=== PATIENT | female | born 1945 | race Caucasian/White ===

== ENCOUNTER 2017-05-18 17:14 | Inpatient (IN) | payer MEDICARE ==
[~2017-05-18] VITALS: Ht 170.2 cm; Wt 140.9 kg
[2017-05-18] VITALS (9 sets, daily range): BP systolic 105–174; BP diastolic 53–79; PULSE 60–81; RESP 16–22; TEMP 97.9–98.6; O2SAT 90–97
[~2017-05-18 17:14] MED LIST: ALLO100T PO; AMIO200T PO; CALC0.25 PO; CARV6.252 PO; DRIS50002 PO; FURO40TA PO; LANTUS2P SQ; LOSA50TA PO; METO5TAB3 PO; NOVOLOGP2 SQ; POTA10TA2 PO; SIMV20TA PO; WARF-58 PO
[2017-05-18] MEDS ORDERED: PIPERACIL-TAZO 4.5 GM PREMIX 100 ML IV STA (17:41)
[2017-05-18] MEDS ORDERED: VANCOMYCIN INJ 2,000 MG in SODIUM CHLORID 0.9% 500 ML INJ 500 ML IV STA (17:41)
[2017-05-18] MEDS ORDERED: ATOR40TA16 PO (17:45)
[2017-05-18] MEDS ORDERED: ERGO1CAP30 PO (17:45)
--- NOTE | 2017-05-18 17:50 | PD ---
HPI Chief Complaint: Skin Problem Time Seen by Provider: 17:41 Travel History International Travel<30 days: No Contact w/Intl Traveler<30days: No Traveled to known affect area: No History of Present Illness HPI This 71-year-old female presents with complaint of pain and swelling of her right leg she has had trouble with cellulitis in the leg in the past. It's been more swollen than usual the last few weeks. She had been to Dr. Parmar at the beginning of the month and at that time she was started on Cipro. She says that since then the leg is becoming more swollen and painful. She has a history of diabetes for about 10 years and has been told that she has kidney insufficiency. She is not aware of fever or chills. She does have a history of heart disease and atrial fibrillation and is on Coumadin. The leg has been swollen and it has been draining some yellow fluid. Today she went to office for follow-up and was told to come here. She has a lot of pain in the leg when she walks on it. She noted increased swelling couple of days ago PFSH Past Medical History Atrial Fibrillation: Yes Anxiety: No Depression: No Heart Rhythm Problems: Yes (ICD IMPLANT) Cancer: No Cardiovascular Problems: Yes High Cholesterol: No Chest Pain: No Congestive Heart Failure: Yes Diabetes: Yes Patient Takes Glucophage: No Diminished Hearing: No Endocrine: No Gastrointestinal Disorders: No Genitourinary: Yes (pessary) Hypertension: Yes Immune Disorder: No Kidney Stones: Yes Musculoskeletal: No Neurologic: No Psychiatric: No Reproductive: No Respiratory: No Immunizations Current: Yes Renal Failure: No Thyroid Disease: No ?: Not Menopausal: Yes Past Surgical History Abdominal Surgery: No AICD: Yes Appendectomy: Yes Arteriovenous Shunt: No Body Medical Devices: defibrillator Cardiac Surgery: Yes (ICD) Ear Surgery: No Endocrine Surgery: No Eye Surgery: No Genitourinary Surgery: Yes (kidney stones) Gynecologic Surgery: No Hysterectomy: Yes (partial ) Insulin Pump: No Joint Replacement: No Oral Surgery: No Pacemaker: Yes Thoracic Surgery: No Social History Alcohol Use: Yes (rare) Tobacco Use: No (former) Substance Use: No Allergies-Medications (Allergen,Severity, Reaction): Coded Allergies: No Known Allergies (Verified , 05/18/17) Reported Meds & Prescriptions Reported Meds & Active Scripts Active Reported Atorvastatin (Atorvastatin Calcium) 40 Mg Tab 40 Mg PO HS Ergocalciferol 50,000 Unit Cap 50,000 Units PO TWICE WEEKLY tuesdays and saturdays Warfarin 3 Mg Tab 3 Mg PO DAILY Potassium Chloride ER (Potassium Chloride) 10 Meq Tab 10 Meq PO DAILY Metolazone 5 Mg Tab 5 Mg PO DAILY Losartan (Losartan Potassium) 50 Mg Tab 50 Mg PO DAILY Lantus Inj (Insulin Glargine) 1,000 Unit/10 Ml Vial 23 Units SQ HS Furosemide 40 Mg Tab 40 Mg PO DAILY Carvedilol 6.25 Mg Tab 6.25 Mg PO BID Calcitriol 0.25 Mcg Cap 0.25 Mcg PO DAILY Amiodarone (Amiodarone HCl) 200 Mg Tab 200 Mg PO DAILY Allopurinol 100 Mg Tab 100 Mg PO DAILY Review of Systems General / Constitutional: No: Fever, Chills Eyes: No: Diploplia, Blurred Vision HENT: No: Headaches, Vertigo Cardiovascular: No: Chest Pain or Discomfort, Palpitations Respiratory: Positive: Shortness of Breath Gastrointestinal: No: Nausea, Vomiting, Diarrhea Genitourinary: Positive: Dysuria Musculoskeletal: Positive: Pain Skin: Positive Rash Neurologic: No: Weakness, Dizziness Hematologic/Lymphatic: Positive: Easy Bruising Physical Exam Narrative GENERAL: Well-developed female SKIN: Focused skin assessment warm/dry. Leg has fairly diffuse erythema from the knee down. There is some areas of open skin with small amount of serous drainage HEAD: Atraumatic. Normocephalic. EYES: Pupils equal and round. No scleral icterus. No injection or drainage. ENT: No nasal bleeding or discharge. Mucous membranes pink and moist. NECK: Trachea midline. No JVD. CARDIOVASCULAR: Regular rate and rhythm. No murmur appreciated. RESPIRATORY: No accessory muscle use. Clear to auscultation. Breath sounds equal bilaterally. GASTROINTESTINAL: Abdomen soft, non-tender, nondistended. Hepatic and splenic margins not palpable. MUSCULOSKELETAL: No obvious deformities. No clubbing. No cyanosis. No edema. There is diffuse swelling of the right leg. NEUROLOGICAL: Awake and alert. No obvious cranial nerve deficits. Motor grossly within normal limits. Normal speech. PSYCHIATRIC: Appropriate mood and affect; insight and judgment normal. Data Data Last Documented VS Vital Signs Date Time Temp Pulse Resp B/P Pulse Ox O2 Delivery O2 Flow Rate FiO2 05/18/17 18:15 16 96 Room Air 7/19/17 18:15 60 114/56 05/18/17 17:20 97.9 Orders Complete Blood Count With Diff (05/18/17 17:41) Comprehensive Metabolic Panel (05/18/17 17:41) Prothrombin Time / Inr (Pt) (05/18/17 17:41) Act Partial Throm Time (Ptt) (05/18/17 17:41) Lactic Acid Sepsis Protocol (05/18/17 17:41) Urinalysis - C+S If Indicated (05/18/17 17:41) Blood Culture (05/18/17 17:41) Wound Culture And Gram Stain (05/18/17 17:41) Blood Glucose (05/18/17 17:41) Ecg Monitoring (05/18/17 17:41) Iv Access Insert/Monitor (05/18/17 17:41) Oximetry (05/18/17 17:41) Piperacil-Tazo 4.5 Gm Premix (Zosyn 4.5 (05/18/17 17:41) Vancomycin Inj (Vancomycin Inj) (05/18/17 17:41) Us Leg Venous Doppler (05/18/17 17:41) Electrocardiogram (05/18/17 17:50) Chest, Single Ap (05/18/17 17:50) B-Type Natriuretic Peptide (05/18/17 18:35) Admit Order (Ed Use Only) (05/18/17 18:44) Labs Laboratory Tests Test 05/18/17 17:55 White Blood Count 11.4 TH/MM3 Red Blood Count 3.57 MIL/MM3 Hemoglobin 10.7 GM/DL Hematocrit 32.2 % Mean Corpuscular Volume 90.1 FL Mean Corpuscular Hemoglobin 30.0 PG Mean Corpuscular Hemoglobin 33.3 % Concent Red Cell Distribution Width 13.5 % Platelet Count 265 TH/MM3 Mean Platelet Volume 8.1 FL Neutrophils (%) (Auto) 77.0 % Lymphocytes (%) (Auto) 12.0 % Monocytes (%) (Auto) 8.7 % Eosinophils (%) (Auto) 1.7 % Basophils (%) (Auto) 0.6 % Neutrophils # (Auto) 8.7 TH/MM3 Lymphocytes # (Auto) 1.4 TH/MM3 Monocytes # (Auto) 1.0 TH/MM3 Eosinophils # (Auto) 0.2 TH/MM3 Basophils # (Auto) 0.1 TH/MM3 CBC Comment DIFF FINAL Differential Comment Prothrombin Time 32.3 SEC Prothromb Time International 2.8 RATIO Ratio Activated Partial 57.3 SEC Thromboplast Time Sodium Level 143 MEQ/L Potassium Level 4.0 MEQ/L Chloride Level 107 MEQ/L Carbon Dioxide Level 28.7 MEQ/L Anion Gap 7 MEQ/L Blood Urea Nitrogen 46 MG/DL Creatinine 2.20 MG/DL Estimat Glomerular Filtration 22 ML/MIN Rate Random Glucose 133 MG/DL Lactic Acid Level 2.1 mmol/L Calcium Level 8.9 MG/DL Total Bilirubin 0.7 MG/DL Aspartate Amino Transf 13 U/L (AST/SGOT) Alanine Aminotransferase 21 U/L (ALT/SGPT) Alkaline Phosphatase 97 U/L B-Type Natriuretic Peptide 155 PG/ML Total Protein 7.1 GM/DL Albumin 2.9 GM/DL [facility] Medical Decision Making Medical Screen Exam Complete: Yes Emergency Medical Condition: Yes Medical Record Reviewed: Yes Differential Diagnosis Differential includes cellulitis, DVT, CHF Narrative Course X-ray shows cardiomegaly and pacer/AICD. There is no change from previous x- ray. EKG shows a regular rhythm with interventricular conduction delay. Hemoglobin is 10 with a white count of 11.4. BUNs is 46 with creatinine of 2.2. Her INR is 2.8. Lactate level is 2.1 patient has a cellulitis of the leg which has failed outpatient treatment with Cipro. She has significant comorbidities of renal insufficiency and diabetes. Ultrasound is negative for DVT Diagnosis Primary Impression: Cellulitis of right leg Admitting Information Admitting Physician Requests: Admit Faisal Sheikh MD May 18, 2017 17:50
[2017-05-18 18:08] LABS: AUTOMATED NEUTROPHIL # 8.7 TH/MM3 (1.8-7.7); BASOPHIL # 0.1 TH/MM3 (0-0.2); BASOPHIL % 0.6 % (0.0-2.0); EOSINOPHIL # 0.2 TH/MM3 (0-0.4); EOSINOPHIL % 1.7 % (0.0-4.0); HEMATOCRIT 32.2 % (35.0-46.0); LYMPHOCYTE # 1.4 TH/MM3 (1.0-4.8); MEAN CELL VOLUME 90.1 FL (80.0-100.0); MEAN CORPUSCULAR HGB CONC 33.3 % (32.0-36.0); MONO % 8.7 % (0.0-8.0); PLATELET COUNT 265 TH/MM3 (150-450); RED BLOOD COUNT 3.57 MIL/MM3 (4.00-5.30); RED CELL DISTRIBUTION WIDTH 13.5 % (11.6-17.2); WHITE BLOOD COUNT 11.4 TH/MM3 (4.0-11.0)
[2017-05-18 18:14] LABS: HEMO FLAGS DIFF FINAL
[2017-05-18 18:16] LABS: CHLORIDE 107 MEQ/L (98-107); SODIUM (NA) 143 MEQ/L (136-145)
[2017-05-18 18:20] LABS: ANION GAP 7 MEQ/L (5-15); BICARBONATE 28.7 MEQ/L (21.0-32.0); BLOOD UREA NITROGEN 46 MG/DL (7-18)
[2017-05-18 18:23] LABS: ALT (GPT) 21 U/L (10-53); APTT (PATIENT) 57.3 SEC (24.3-30.1); AST (GOT) 13 U/L (15-37); GLOMERULAR FILTRATION RATE 22 ML/MIN (>89); INTERNATIONAL NORMALIZED RATIO 2.8 RATIO; PROTHROMBIN TIME - PATIENT 32.3 SEC (9.8-11.6)
[2017-05-18 18:25] LABS: TOTAL BILIRUBIN ADULT 0.7 MG/DL (0.2-1.0)
[2017-05-18 18:26] LABS: ALKALINE PHOSPHATASE 97 U/L (45-117)
--- NOTE | 2017-05-18 18:27 | RADRPT ---
EXAM DATE/TIME: 05/18/2017 18:15 [facility] COMPARISON: CHEST SINGLE AP, May 29, 2015, 8:18. INDICATIONS : Chest discomfort, swelling in lower extremities for 1 week MEDICAL HISTORY : Cardiovascular disease. SURGICAL HISTORY : Pacemaker. ENCOUNTER: Initial ACUITY: 1 week PAIN SCORE: 0/10 LOCATION: Bilateral chest FINDINGS: Cardiomegaly and a pacer/ICD device from a left subclavian transvenous approach again noted. There is no consolidation or effusion. Osseous structures are intact. CONCLUSION: No significant change has occurred. Stuart Serrano MD on May 18, 2017 at 18:25 Board Certified Radiologist. This report was verified electronically.
--- NOTE | 2017-05-18 19:07 | RADRPT ---
EXAM DATE/TIME: 05/18/2017 18:46 [facility] COMPARISON: No previous studies available for comparison. INDICATIONS : Right leg pain and swelling. MEDICAL HISTORY : Hypertension. Congestive heart failure. Hyperlipidemia. A-fib. Endometriosis. Renal calculi. Oste oarthritis. Gout. Diabetes. Measles. SURGICAL HISTORY : Appendectomy. Hysterectomy. Pacemaker. ENCOUNTER: Initial ACUITY: 4 - 6 days PAIN SCORE: 7/10 LOCATION: Right leg. TECHNIQUE: Venous ultrasound of the leg was performed from the inguinal ligament to the proximal calf. Real-tomas e, color Doppler and spectral tracing, compression and augmentation techniques were used. FINDINGS: There is normal compressibility of the deep venous system from the inguinal region to the proximal ca lf. No echogenic clot is seen in the lumen of the common femoral, femoral, popliteal, and posterior tibial veins. There is a normal response of the venous system to proximal and distal augmentation an d respiration. CONCLUSION: No evidence for DVT. Subcutaneous edema of the calf.. Stuart Serrano MD on May 18, 2017 at 19:06 Board Certified Radiologist. This report was verified electronically.
[2017-05-18] MEDS ORDERED: BISACODYL 10 MG SUPP RECTAL PRN (19:30)
[2017-05-18] MEDS ORDERED: ONDANSETRON HCL 4 MG/2 ML VIAL IV PUSH ONE (19:30)
[2017-05-18] MEDS ORDERED: NALOXONE HCL 0.4 MG/ML AMP IV PRN (19:30)
[2017-05-18] MEDS ORDERED: SENNOSIDES 8.6 MG TAB PO PRN (19:30)
[2017-05-18] MEDS ORDERED: MAGNESIUM HYDROXIDE SUSP 30 ML CUP PO PRN (19:30)
[2017-05-18] MEDS ORDERED: Vancomycin Consult Pharmacy 1 EA OTHER SCH (19:30)
[2017-05-18] MEDS ORDERED: GLUCAGON 1 MG/ML VIAL OTHER PRN (19:30)
[2017-05-18] MEDS ORDERED: DEXTROSE 50% IN WATER 50 ML VIAL(D50) IV PRN (19:30)
[2017-05-18] MEDS ORDERED: SODIUM CHLORIDE 0.9% FLUSH 10 ML FLUSH IV FLUSH PRN (19:30)
[2017-05-18] MEDS ORDERED: LACTULOSE SYRUP 20 GM/30 ML CUP PO PRN (19:30)
[2017-05-18 19:38] LABS: GLUCOSE,URINE NEG (NEG); KETONE, URINE NEG (NEG); NITRITE,URINE NEG (NEG); PH, URINE 5.5 (5.0-8.5)
[2017-05-18 19:40] LABS: BLOOD, URINE MOD (NEG); URINE COLOR YELLOW (YELLW/STRAW)
[2017-05-18 19:41] LABS: BACTERIA, URINE MANY /hpf; COMMENT (UR) CULTURE INDICATED; CULTURE IF INDICATED CULTURE INDICATED
[2017-05-18 20:05] LABS: LACTIC ACID GHOST NOT REPORTABLE
[2017-05-18] MEDS: INSULIN ASPART SUPPLEMENTAL SCALE SQ SCH (21:00)
[2017-05-18] MEDS: SODIUM CHLORIDE 0.9% FLUSH 10 ML FLUSH IV FLUSH SCH (21:34)
[2017-05-18] MEDS: DOCUSATE SODIUM 50 MG/SENNA 8.6 MG TAB PO SCH (21:34)
[2017-05-18] MEDS: ONDANSETRON HCL 4 MG/2 ML VIAL IVP PRN (21:35)
[2017-05-18] MEDS: TEMAZEPAM 15 MG CAP PO PRN (21:38)
[2017-05-18] MEDS ORDERED: diphenhydrAMINE HCL 50 MG/ML VIAL IV PRN (21:45)
[2017-05-18] MEDS: CLINDAMYCIN 300 MG/NS 100 ML IV SCH ×2 (21:54)
[2017-05-19] VITALS (9 sets, daily range): BP systolic 95–146; BP diastolic 58–75; PULSE 59–81; RESP 18–22; TEMP 96.2–100; O2SAT 87–99
[2017-05-19] MEDS: CLINDAMYCIN 300 MG/NS 100 ML IV SCH ×6 (03:42→16:56)
[2017-05-19] MEDS: INSULIN ASPART SUPPLEMENTAL SCALE SQ SCH ×4 (06:19→21:00)
[2017-05-19 06:37] LABS: AUTOMATED NEUTROPHIL # 8.1 TH/MM3 (1.8-7.7); BASOPHIL % 0.2 % (0.0-2.0); EOSINOPHIL % 0.4 % (0.0-4.0); HEMO FLAGS DIFF FINAL; LYMPH % 7.4 % (9.0-44.0); LYMPHOCYTE # 0.7 TH/MM3 (1.0-4.8); MEAN CELL VOLUME 91.1 FL (80.0-100.0); MEAN CORPUSCULAR HEMOGLOBIN 29.6 PG (27.0-34.0); MEAN CORPUSCULAR HGB CONC 32.5 % (32.0-36.0); MONO % 8.9 % (0.0-8.0); NEUT % 83.1 % (16.0-70.0); PLATELET COUNT 224 TH/MM3 (150-450); RED BLOOD COUNT 3.41 MIL/MM3 (4.00-5.30); RED CELL DISTRIBUTION WIDTH 13.7 % (11.6-17.2); WHITE BLOOD COUNT 9.7 TH/MM3 (4.0-11.0)
[2017-05-19 06:39] LABS: POTASSIUM 4.5 MEQ/L (3.5-5.1)
[2017-05-19 06:42] LABS: BICARBONATE 29.1 MEQ/L (21.0-32.0)
[2017-05-19] MEDS: DOCUSATE SODIUM 50 MG/SENNA 8.6 MG TAB PO SCH ×2 (09:00→21:05)
[2017-05-19] MEDS ORDERED: FUROSEMIDE 40 MG TAB PO SCH (09:00)
--- NOTE | 2017-05-19 09:22 | MH ---
cc: KAUSHAL PRYOR MD DATE OF ADMISSION: 05/18/2017 CHIEF COMPLAINT Redness, swelling and pain of the right lower extremity. HISTORY OF PRESENT ILLNESS This is a 71-year female with a past medical/surgical history significant for atrial fibrillation, AICD placement, history of congestive heart failure, renal insufficiency, history of pessary replacement for uterine prolapse, hypertension, kidney stones, partial hysterectomy, pacemaker/AICD placement, appendectomy. The patient came to the ER at [facility] complaining of pain and swelling of the right lower extremity. She had cellulitis of the right lower extremity in the past and this started about a week ago. She had seen Dr. Parmar at the beginning of the month and at that time she was started on Cipro and she said that the leg became more swollen and painful. She has a history of diabetes for about to 10 years and has been told that she acute renal insufficiency. She is not aware of fever or chills. She does have a history of heart disease and atrial fibrillation and is on Coumadin. The leg has been swollen and it has been draining some yellow fluid. She went to Dr. Parmar's office for followup and was sent to the ER. The swelling has been increased for a couple of days. Other than that, nothing significant. PAST MEDICAL-SURGICAL HISTORY As dictated above. SOCIAL HISTORY She is ex-smoker, smoked only 3 years in lifetime, 1/2-pack per day and she rarely drinks. Denies any drug abuse. Lives at home with . 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 FAMILY HISTORY Nothing significant. ALLERGIES No known drug allergies. MEDICATIONS 1. Atorvastatin 40 mg p.o. at bedtime. 2. Ergocalciferol 50,000 units p.o. weekly. 3. Coumadin 3 mg p.o. daily. 4. Potassium chloride ER 10 mEq p.o. daily. 5. Metolazone 5 mg p.o. daily. 6. Losartan 50 mg p.o. daily. 7. Lantus injection 23 units subcutaneous at bedtime. 8. Furosemide 40 mg p.o. daily. 9. Carvedilol 6.25 mg twice a day. 10. Calcitriol 0.25 mg p.o. daily. 11. Amiodarone 200 mg p.o. daily. 12. Allopurinol 100 mg p.o. daily. REVIEW OF SYSTEMS Positive for right leg swelling and pain and redness and obese. All other review of systems negative. PHYSICAL EXAMINATION GENERAL: This 71-year-old female laying on her bed, not in distress. VITAL SIGNS: Temperature 99.7, heart rate 59, respirations 18, blood pressure 117/72, O2 saturation 99% on room air. HEENT: Normocephalic, atraumatic. EOMI. PERRLA. Oral mucosa moist. NECK: Supple. No visible thyromegaly or neck mass. Trachea is central. Generally obese. Neck is supple. No visible thyromegaly or neck mass. Trachea is central. CVS: Regular rate and rhythm. LUNGS: Respirations clear to auscultation bilaterally. ABDOMEN: Soft, obese, nontender. Bowel sounds audible. EXTREMITIES: There is right lower extremity redness, swelling and tenderness with serous fluid drainage. Full range of motion of all extremities. NEURO: Awake, alert, oriented x 4. No focal deficits. SKIN: The skin shows erythema of the right lower extremity with oozing serous fluid. PSYCH: The patient is cooperative. Mood and affect are normal. LABORATORY DATA CBC shows WBC count of 11.4, now it is 9.7. Hemoglobin was 10.7, now it is 10.1, hematocrit was 32.2, now it is 31.0. BMP totally unremarkable except for chloride of 108 - high. BUN 48 - high, creatinine 2.40, glucose random 106, calcium 8.2, lactic acid 2.1 - now it is 1.5, BNP 155 - high, albumin 2.9. PT 32.3, INR 2.8, APTT 57.3. Urine examination showed 50-90 WBCs in the urine with WBC clumps, 4-9 RBCs, moderate occult blood and many bacteria. Culture indicated. Blood cultures x 2 done, negative so far. Wound culture done, pending. Urine culture done is spending. IMAGING STUDIES Ultrasound of the lower extremity done shows no evidence of DVT. Subcutaneous edema of the calf. Chest x-ray Was done, showed no significant changes have occurred. ASSESSMENT AND PLAN This is a 71-year-old female who came to the ER with diagnosis - 1. Cellulitis of the right lower extremity. Venous Doppler negative for DVT. The patient got vancomycin and Zosyn. Infectious Disease consulted. Further recommendation of antibiotic per Infectious Disease. 2. Chronic renal failure. We will monitor BUN and creatinine. 3. History of atrial fibrillation. The patient on Coumadin. INR 2.8. We will monitor PT/INR daily. The patient also on amiodarone 200 mg p.o. daily, carvedilol 6.25 mg p.o. daily 4. Cellulitis of the right lower extremity. The patient is on clindamycin IV q.6 hours. 5. History of gout. Continue home medication. 6. Diabetes mellitus. ADA 1800 calorie diet. NovoLog low-dose sliding scale. Continue Lantus. Monitor blood sugars a.c and q.h.s. 7. Vitamin D deficiency. Continue home medication. 8. History of congestive heart failure. The patient's BNP is high but the patient clinically does not have congestive heart failure. No crackles, no shortness of breath. 9. DVT prophylaxis. Coumadin. 10. GI prophylaxis. Protonix 40 mg p.o. daily. 11. History of insomnia. Continue with Restoril 15 mg p.o. at bedtime. 12. History of constipation. Continue home medication. We are going to manage the patient on a daily basis and make recommendation on a daily basis. Nurse Tara was present the whole time during patient history and physical examination. Kaushal Pryor MD EA/KANG /8:27 AM /8:46 AM
[2017-05-19] MEDS: CARVEDILOL 6.25 MG TAB PO SCH ×2 (09:40→21:05)
[2017-05-19] MEDS: ALLOPURINOL 100 MG TAB PO SCH (09:40)
[2017-05-19] MEDS: METOLAZONE 5 MG TAB PO SCH (09:40)
[2017-05-19] MEDS: POTASSIUM CHLORIDE 10 MEQ CONTROLLED RELEASE TAB PO SCH (09:40)
[2017-05-19] MEDS: AMIODARONE 200 MG TAB PO SCH (09:40)
[2017-05-19] MEDS: PANTOPRAZOLE SOD 40 MG DELAYED RELEASE TAB PO SCH (09:40)
[2017-05-19] MEDS: CALCITRIOL 0.25 MCG CAP PO SCH (09:40)
[2017-05-19] MEDS: SODIUM CHLORIDE 0.9% FLUSH 10 ML FLUSH IV FLUSH SCH ×2 (09:41→21:05)
[2017-05-19 10:29] LABS: INTERNATIONAL NORMALIZED RATIO 3.1 RATIO; PROTHROMBIN TIME - PATIENT 35.5 SEC (9.8-11.6)
--- NOTE | 2017-05-19 14:57 | EKG ---
Date Performed: 05/18/2017 Time Performed: 18:02:26 PTAGE: 71 years EKG: AV Pacing Baseline artifact INTRAVENTRICULAR CONDUCTION DELAY PROBABLE ANTEROLATERAL MYOCAR DIAL INFARCTION Compared to previous tracing, the patient now appears to be AV paced ABNORMAL ECGPREV IOUS TRACING : 06/07/2016 11.09 DOCTOR: Siria Kennedy Interpretating Date/Time 05/19/2017 14:54:03
[2017-05-19] MEDS ORDERED: WARFARIN SOD 3 MG TAB PO SCH (16:00)
[2017-05-19] MEDS: ACETAMINOPHEN/HYDROcodone 325 MG/5 MG TAB PO PRN (16:57)
--- NOTE | 2017-05-19 18:10 | PD.CONS ---
History of Present Illness Service Infectious disease Consult Requested By Dr Kaushal Burks Reason for Consult Rt leg cellulitis Primary Care Physician Non-Staff Diagnoses: (1) Cellulitis of right leg (2) LZÁARO (acute kidney injury) (3) DM (diabetes mellitus) (4) UTI (urinary tract infection) History of Present Illness 71 year old with multiple medical problems including diabetes and cellulitis twice before had worsening swelling and redness of rt leg and so she did see her PCP- Lisy CARLTON at Dr Esparza's office and she was given Cipro but her leg did not get better and so she came to ER. C/o throbbing pain in rt leg. She has had a low grade fever. Also she does c/o some dysuria. Review of Systems Constitutional: COMPLAINS OF: Fatigue, Fever Endocrine: DENIES: Polydipsia, Polyuria Eyes: DENIES: Diplopia, Eye pain Ears, nose, mouth, throat: DENIES: Hearing loss, Oral lesions Respiratory: DENIES: Wheezing, Shortness of breath Cardiovascular: COMPLAINS OF: Lower Extremity Edema, DENIES: Syncope, Dyspnea on Exertion, Orthopnea Gastrointestinal: DENIES: Bloody stools, Vomiting, Difficulty Swallowing Genitourinary: COMPLAINS OF: Dysuria, DENIES: Hematuria Musculoskeletal: COMPLAINS OF: Muscle aches Integumentary: COMPLAINS OF: Abnormal pigmentation, DENIES: Pruritus Hematologic/lymphatic: COMPLAINS OF: Bruising Neurologic: COMPLAINS OF: Paresthesias, DENIES: Headache Psychiatric: DENIES: Anxiety, Depression Past Family Social History Allergies: Coded Allergies: Vancomycin (Verified Allergy, Severe, ANAPHYLAXIS, 05/18/17) Past Medical History Type 2 Diabetes HTN Renal insufficiency CHF A fib Cellulitis x 2 Past Surgical History Pacemaker/ AICD placement Partial hysterectomy Reported Medications Clindamycin IV Family History Non contributory Social History Lives at home with Former smoker Has a dog at home No recent travel Physical Exam Vital Signs Vital Signs Date Time Temp Pulse Resp B/P Pulse Ox O2 Delivery O2 Flow Rate FiO2 05/19/17 16:00 100.0 70 18 127/75 90 05/19/17 11:54 98.3 81 18 146/74 91 05/19/17 09:39 61 05/19/17 08:00 93 21 05/19/17 08:00 99.7 59 18 117/72 99 05/19/17 07:50 96 Nasal Cannula 2.00 05/19/17 04:00 97.9 59 18 127/71 98 05/19/17 00:00 100.0 64 20 95/58 96 05/18/17 22:00 64 05/18/17 21:20 98.3 66 18 105/60 91 05/18/17 20:45 72 20 108/53 97 Nasal Cannula 1.5 05/18/17 20:15 70 22 140/65 94 Nasal Cannula 1.5 05/18/17 19:45 68 22 158/72 96 Nasal Cannula 1.5 05/18/17 19:30 98.6 81 22 174/79 95 Nasal Cannula 1 05/18/17 19:30 98.6 81 22 174/79 95 Nasal Cannula 1 05/18/17 19:00 60 20 109/60 90 Room Air 05/18/17 18:15 16 96 Room Air 05/18/17 18:15 60 16 114/56 96 Room Air Physical Exam GENERAL: This is a chronically ill obese patient SKIN: Rt leg erythematous with some superficial oozing ulcers and a bruise in medial upper calf that is slightly fluctuant HEAD: Atraumatic. Normocephalic. No temporal or scalp tenderness. EYES: Pupils equal round and reactive. Extraocular motions intact. No scleral icterus. No injection or drainage. ENT: Nose without bleeding, purulent drainage or septal hematoma. Throat without erythema, tonsillar hypertrophy or exudate. Uvula midline. Airway patent. NECK: Trachea midline. No JVD or lymphadenopathy. Supple, nontender, no meningeal signs. CARDIOVASCULAR: Regular rate and rhythm without murmurs, gallops, or rubs. RESPIRATORY: Clear to auscultation. Breath sounds equal bilaterally. No wheezes , rales, or rhonchi. GASTROINTESTINAL: Abdomen soft, non-tender, nondistended. No hepato-splenomegaly , or palpable masses. No guarding. MUSCULOSKELETAL: Extremities - RLE with cellulitis Negative Homans sign bilaterally. NEUROLOGICAL: Awake and alert. Cranial nerves II through XII intact. Motor within normal limits. Five out of 5 muscle strength in all muscle groups. Normal speech. Laboratory Laboratory Tests Test 05/18/17 05/18/17 05/19/17 05/19/17 19:20 20:23 05:35 10:00 Urine Color YELLOW Urine Turbidity CLOUDY Urine pH 5.5 Urine Specific [place] 1.025 Urine Protein TRACE Urine Glucose (UA) NEG Urine Ketones NEG Urine Occult Blood MOD Urine Nitrite NEG Urine Bilirubin NEG Urine Leukocyte Esterase MOD Urine RBC 4-9 Urine WBC 50-99 Urine WBC [place] FEW Urine Squamous Epithelial 6-8 Cells Urine Bacteria MANY Microscopic Urinalysis Comment CULTURE INDICATED Lactic Acid Level 1.5 White Blood Count 9.7 Red Blood Count 3.41 Hemoglobin 10.1 Hematocrit 31.0 Mean Corpuscular Volume 91.1 Mean Corpuscular Hemoglobin 29.6 Mean Corpuscular Hemoglobin 32.5 Concent Red Cell Distribution Width 13.7 Platelet Count 224 Mean Platelet Volume 9.1 Neutrophils (%) (Auto) 83.1 Lymphocytes (%) (Auto) 7.4 Monocytes (%) (Auto) 8.9 Eosinophils (%) (Auto) 0.4 Basophils (%) (Auto) 0.2 Neutrophils # (Auto) 8.1 Lymphocytes # (Auto) 0.7 Monocytes # (Auto) 0.9 Eosinophils # (Auto) 0.0 Basophils # (Auto) 0.0 CBC Comment DIFF FINAL Differential Comment Sodium Level 144 Potassium Level 4.5 Chloride Level 108 Carbon Dioxide Level 29.1 Anion Gap 7 Blood Urea Nitrogen 48 Creatinine 2.40 Estimat Glomerular Filtration 20 Rate Random Glucose 106 Calcium Level 8.2 Prothrombin Time 35.5 Prothromb Time International 3.1 Ratio Date/Time Procedure Status Source Growth 05/18/17 19:20 Urine Culture - Preliminary Resulted Urine Clean Catch Gram Negative Jared 05/18/17 18:05 Aerobic Blood Culture - Preliminary Resulted Blood Peripheral NO GROWTH IN 1 DAY 05/18/17 18:05 Anaerobic Blood Culture - Preliminary Resulted Blood Peripheral NO GROWTH IN 1 DAY 05/18/17 17:55 Gram Stain - Final Resulted Wound Leg 05/18/17 17:55 Wound Culture - Preliminary Resulted Gram Positive Cocci Result Diagram: 05/19/17 0535 05/19/17 0535 Assessment and Plan Problem List: (1) Cellulitis of right leg Status: Acute Plan: 1 of 4 bottle with GPC - follow cultures closely Stop IV Clindamycin Start Cefazolin 1 gIV q8hrs Add Doxy 100 mg po bid (2) UTI (urinary tract infection) Status: Acute Plan: Follow cultures IV Cefazolin (3) LÁZARO (acute kidney injury) Status: Acute (4) DM (diabetes mellitus) Status: Acute Problem Qualifiers (1) DM (diabetes mellitus): Janine Shelton MD May 19, 2017 18:10
[2017-05-19] MEDS ORDERED: ACETAMINOPHEN 325 MG TAB PO PRN (19:00)
[2017-05-19] MEDS ORDERED: VANCOMYCIN INJ 1,000 MG in SODIUM CHLOR 0.9% 250 ML INJ 250 ML IV SCH (19:30)
[2017-05-19] MEDS: DOXYCYCLINE HYCLATE 100 MG CAP PO SCH (21:05)
[2017-05-19] MEDS: ATORVASTATIN 40 MG TAB PO SCH (21:05)
[2017-05-19] MEDS: INSULIN DETEMIR 100 UNITS/ML VIAL SQ SCH (21:06)
[2017-05-20] VITALS (10 sets, daily range): BP systolic 109–128; BP diastolic 62–70; PULSE 59–72; RESP 14–18; TEMP 96.8–97.7; O2SAT 87–100
[2017-05-20] MEDS: ACETAMINOPHEN/HYDROcodone 325 MG/5 MG TAB PO PRN ×4 (03:03→23:32)
[2017-05-20 06:33] LABS: AUTOMATED NEUTROPHIL # 5.8 TH/MM3 (1.8-7.7); BASOPHIL % 0.5 % (0.0-2.0); EOSINOPHIL # 0.3 TH/MM3 (0-0.4); EOSINOPHIL % 3.2 % (0.0-4.0); HEMATOCRIT 31.3 % (35.0-46.0); HEMO FLAGS DIFF FINAL; LYMPH % 15.3 % (9.0-44.0); LYMPHOCYTE # 1.4 TH/MM3 (1.0-4.8); MEAN CELL VOLUME 91.8 FL (80.0-100.0); MEAN CORPUSCULAR HEMOGLOBIN 29.1 PG (27.0-34.0); MEAN CORPUSCULAR HGB CONC 31.7 % (32.0-36.0); MONO % 15.4 % (0.0-8.0); NEUT % 65.6 % (16.0-70.0); PLATELET COUNT 225 TH/MM3 (150-450); RED BLOOD COUNT 3.41 MIL/MM3 (4.00-5.30); RED CELL DISTRIBUTION WIDTH 13.4 % (11.6-17.2); WHITE BLOOD COUNT 8.9 TH/MM3 (4.0-11.0)
[2017-05-20 06:42] LABS: CHLORIDE 107 MEQ/L (98-107); SODIUM (NA) 142 MEQ/L (136-145)
[2017-05-20] MEDS: INSULIN ASPART SUPPLEMENTAL SCALE SQ SCH ×4 (06:45→21:00)
[2017-05-20 06:46] LABS: ANION GAP 7 MEQ/L (5-15); BICARBONATE 27.9 MEQ/L (21.0-32.0); BLOOD UREA NITROGEN 51 MG/DL (7-18); INTERNATIONAL NORMALIZED RATIO 2.8 RATIO; PROTHROMBIN TIME - PATIENT 32.2 SEC (9.8-11.6)
[2017-05-20 06:49] LABS: ALT (GPT) 20 U/L (10-53); AST (GOT) 14 U/L (15-37); GLOMERULAR FILTRATION RATE 19 ML/MIN (>89)
[2017-05-20 06:50] LABS: TOTAL BILIRUBIN ADULT 0.4 MG/DL (0.2-1.0)
[2017-05-20 06:52] LABS: ALKALINE PHOSPHATASE 90 U/L (45-117)
--- NOTE | 2017-05-20 08:09 | HHI.PR ---
Subjective History of Present Illness Patient have low oxygen saturation at night started on nasal canula oxygen Lasix changed to IV D/W CINDY Shaffer at bed side no other issue. Infectious disease input noted stopped clindamycin and Start Cefazolin 1 gIV q8hrs + Doxy 100 mg po bid Review of Systems Constitutional Constitutional: Fatigue, Weakness Constitutional Remarks Obesity Integumentary Skin: Wounds Skin Remarks right lower leg swelling/ pain/ wound Vitals/Results Intake & Output 05/19/17 05/19/17 05/20/17 15:00 23:00 07:00 Intake Total 660 ml 110 ml 480 ml Balance 660 ml 110 ml 480 ml Intake Oral 660 ml 480 ml IV Total 110 ml # Voids 3 Vital Signs Vital Signs Date Time Temp Pulse Resp B/P Pulse Ox O2 Delivery O2 Flow Rate FiO2 05/20/17 08:00 97.6 68 18 119/68 100 05/20/17 04:00 97.7 60 18 120/64 98 05/20/17 00:00 97.0 60 18 121/70 98 05/19/17 20:25 97 Nasal Cannula 2.00 05/19/17 20:00 60 05/19/17 20:00 96.2 60 22 124/69 87 05/19/17 16:00 100.0 70 18 127/75 90 05/19/17 11:54 98.3 81 18 146/74 91 05/19/17 09:39 61 CBC/BMP: 05/20/17 0600 05/20/17 0600 Lab Results Laboratory Tests Test 05/19/17 05/20/17 10:00 06:00 Prothrombin Time 35.5 SEC 32.2 SEC Prothromb Time International 3.1 RATIO 2.8 RATIO Ratio White Blood Count 8.9 TH/MM3 Red Blood Count 3.41 MIL/MM3 Hemoglobin 9.9 GM/DL Hematocrit 31.3 % Mean Corpuscular Volume 91.8 FL Mean Corpuscular Hemoglobin 29.1 PG Mean Corpuscular Hemoglobin 31.7 % Concent Red Cell Distribution Width 13.4 % Platelet Count 225 TH/MM3 Mean Platelet Volume 8.6 FL Neutrophils (%) (Auto) 65.6 % Lymphocytes (%) (Auto) 15.3 % Monocytes (%) (Auto) 15.4 % Eosinophils (%) (Auto) 3.2 % Basophils (%) (Auto) 0.5 % Neutrophils # (Auto) 5.8 TH/MM3 Lymphocytes # (Auto) 1.4 TH/MM3 Monocytes # (Auto) 1.4 TH/MM3 Eosinophils # (Auto) 0.3 TH/MM3 Basophils # (Auto) 0.0 TH/MM3 CBC Comment DIFF FINAL Differential Comment Sodium Level 142 MEQ/L Potassium Level 4.0 MEQ/L Chloride Level 107 MEQ/L Carbon Dioxide Level 27.9 MEQ/L Anion Gap 7 MEQ/L Blood Urea Nitrogen 51 MG/DL Creatinine 2.50 MG/DL Estimat Glomerular Filtration 19 ML/MIN Rate Random Glucose 99 MG/DL Calcium Level 8.5 MG/DL Total Bilirubin 0.4 MG/DL Aspartate Amino Transf 14 U/L (AST/SGOT) Alanine Aminotransferase 20 U/L (ALT/SGPT) Alkaline Phosphatase 90 U/L Total Protein 6.4 GM/DL Albumin 2.5 GM/DL Physical Exam General General Appearance: Well Developed, Well Nourished, No Acute Distress, Comfortable Eyes Eye Exam: Sclera White, Extraocular Movement Intact Throat Throat Exam: Oral Mucosa [place] & Moist, Oral Pharynx Normal Neck Neck Exam: Neck Supple, Trachea Midline Pulmonary Resp Exam: Clear Bilaterally, Breath Sounds Equal, No Distress Cardiology CV Exam: Regular, Normal Sinus Rhythm Gastrointestinal/Abdomen GI Exam: Soft, Non-Tender, Bowel Sounds Present Integumentary Skin Exam: Clear, Warm Skin Remarks wound / erythema/ swelling right lower extremity Extremeties Extremities Exam: Pitting Edema Neurologic Neuro Exam: Alert, Awake, Oriented, Speech Clear, Moving All Extremities, No Focal Deficits Psychiatric Psych Exam: Appropriate Responses PUD Prophylasis PUD Prophylaxis: Protonix Assessment/Plan Assessment/Plan ASSESSMENT AND PLAN This is a 71-year-old female who came to the ER with diagnosis - 1. Cellulitis of the right lower extremity. Venous Doppler negative for DVT. Infectious disease input noted stopped clindamycin and Start Cefazolin 1 gIV q8hrs + Doxy 100 mg po BID. Further recommendation of antibiotic per Infectious Disease. 2. Chronic renal failure. We will monitor BUN and creatinine. 3. History of atrial fibrillation. rate controlled The patient on Coumadin. INR 2.8. We will monitor PT/INR daily. The patient also on amiodarone 200 mg p.o. daily, carvedilol 6.25 mg p.o. daily 4. Cellulitis of the right lower extremity. The patient is on Cefazolin 1 gIV q8hrs + Doxy 100 mg po BID. 5. History of gout. Continue home medication. 6. Diabetes mellitus. ADA 1800 calorie diet. NovoLog low-dose sliding scale. Continue Lantus. Monitor blood sugars a.c and q.h.s. 7. Vitamin D deficiency. Continue home medication. 8. History of congestive heart failure. The patient's BNP is high but the patient clinically does not have congestive heart failure. No crackles, no shortness of breath. on IV Lasix, 9. DVT prophylaxis. Coumadin. 10. GI prophylaxis. Protonix 40 mg p.o. daily. 11. History of insomnia. Continue with Restoril 15 mg p.o. at bedtime. 12. History of constipation. Continue home medication. 13. Desaturation at night need to see user experience manager as out patient need sleep study. We are going to manage the patient on a daily basis and make recommendation on a daily basis. Check CBC with diff CMP in AM. Discussed Condition with: Patient Kaushal Burks MD May 20, 2017 08:09
[2017-05-20] MEDS: POTASSIUM CHLORIDE 10 MEQ CONTROLLED RELEASE TAB PO SCH (08:28)
[2017-05-20] MEDS: METOLAZONE 5 MG TAB PO SCH (08:28)
[2017-05-20] MEDS: FUROSEMIDE 40 MG/4 ML VIAL IV PUSH SCH (08:28)
[2017-05-20] MEDS: CARVEDILOL 6.25 MG TAB PO SCH ×2 (08:28→21:12)
[2017-05-20] MEDS: CALCITRIOL 0.25 MCG CAP PO SCH (08:28)
[2017-05-20] MEDS: ALLOPURINOL 100 MG TAB PO SCH (08:28)
[2017-05-20] MEDS: DOCUSATE SODIUM 50 MG/SENNA 8.6 MG TAB PO SCH ×2 (08:29→21:12)
[2017-05-20] MEDS: DOXYCYCLINE HYCLATE 100 MG CAP PO SCH ×2 (08:29→21:12)
[2017-05-20] MEDS: PANTOPRAZOLE SOD 40 MG DELAYED RELEASE TAB PO SCH (08:29)
[2017-05-20] MEDS: AMIODARONE 200 MG TAB PO SCH (08:29)
[2017-05-20] MEDS: SODIUM CHLORIDE 0.9% FLUSH 10 ML FLUSH IV FLUSH SCH ×2 (08:29→21:13)
[2017-05-20] MEDS: WARFARIN SOD 2.5 MG TAB PO SCH (16:27)
[2017-05-20] MEDS: ATORVASTATIN 40 MG TAB PO SCH (21:12)
[2017-05-20] MEDS: ceFAZolin 500 MG/NS 100 ML IV SCH ×2 (21:13)
[2017-05-20] MEDS: INSULIN DETEMIR 100 UNITS/ML VIAL SQ SCH (21:17)
[2017-05-20] MEDS: TEMAZEPAM 15 MG CAP PO PRN (23:31)
[2017-05-21] VITALS (9 sets, daily range): BP systolic 103–142; BP diastolic 57–81; PULSE 59–77; RESP 16–21; TEMP 96.2–97.8; O2SAT 94–100
[2017-05-21] MEDS: INSULIN ASPART SUPPLEMENTAL SCALE SQ SCH ×4 (06:00→21:00)
[2017-05-21 07:05] LABS: AUTOMATED NEUTROPHIL # 7.1 TH/MM3 (1.8-7.7); BASOPHIL % 0.2 % (0.0-2.0); EOSINOPHIL # 0.4 TH/MM3 (0-0.4); EOSINOPHIL % 4.6 % (0.0-4.0); HEMATOCRIT 32.2 % (35.0-46.0); HEMO FLAGS DIFF FINAL; LYMPH % 8.9 % (9.0-44.0); LYMPHOCYTE # 0.9 TH/MM3 (1.0-4.8); MEAN CELL VOLUME 91.7 FL (80.0-100.0); MEAN CORPUSCULAR HEMOGLOBIN 29.5 PG (27.0-34.0); MEAN CORPUSCULAR HGB CONC 32.2 % (32.0-36.0); NEUT % 74.3 % (16.0-70.0); PLATELET COUNT 237 TH/MM3 (150-450); RED BLOOD COUNT 3.51 MIL/MM3 (4.00-5.30); RED CELL DISTRIBUTION WIDTH 13.7 % (11.6-17.2); WHITE BLOOD COUNT 9.6 TH/MM3 (4.0-11.0)
[2017-05-21 07:10] LABS: CHLORIDE 104 MEQ/L (98-107); INTERNATIONAL NORMALIZED RATIO 2.3 RATIO; PROTHROMBIN TIME - PATIENT 26.7 SEC (9.8-11.6); SODIUM (NA) 142 MEQ/L (136-145)
[2017-05-21 07:19] LABS: ANION GAP 6 MEQ/L (5-15); BICARBONATE 32.1 MEQ/L (21.0-32.0); BLOOD UREA NITROGEN 49 MG/DL (7-18)
[2017-05-21 07:22] LABS: ALT (GPT) 18 U/L (10-53); AST (GOT) 16 U/L (15-37); GLOMERULAR FILTRATION RATE 20 ML/MIN (>89)
[2017-05-21 07:24] LABS: ALKALINE PHOSPHATASE 93 U/L (45-117); TOTAL BILIRUBIN ADULT 0.4 MG/DL (0.2-1.0)
[2017-05-21] MEDS: ALLOPURINOL 100 MG TAB PO SCH (08:22)
[2017-05-21] MEDS: DOXYCYCLINE HYCLATE 100 MG CAP PO SCH ×2 (08:23→21:58)
[2017-05-21] MEDS: CALCITRIOL 0.25 MCG CAP PO SCH (08:23)
[2017-05-21] MEDS: AMIODARONE 200 MG TAB PO SCH (08:23)
[2017-05-21] MEDS: CARVEDILOL 6.25 MG TAB PO SCH ×2 (08:23→21:58)
[2017-05-21] MEDS: DOCUSATE SODIUM 50 MG/SENNA 8.6 MG TAB PO SCH ×2 (08:23→21:58)
[2017-05-21] MEDS: METOLAZONE 5 MG TAB PO SCH (08:24)
[2017-05-21] MEDS: FUROSEMIDE 40 MG/4 ML VIAL IV PUSH SCH (08:24)
[2017-05-21] MEDS: POTASSIUM CHLORIDE 10 MEQ CONTROLLED RELEASE TAB PO SCH (08:25)
[2017-05-21] MEDS: SODIUM CHLORIDE 0.9% FLUSH 10 ML FLUSH IV FLUSH SCH ×2 (08:25→21:58)
[2017-05-21] MEDS: PANTOPRAZOLE SOD 40 MG DELAYED RELEASE TAB PO SCH (08:25)
[2017-05-21] MEDS: ceFAZolin 500 MG/NS 100 ML IV SCH ×4 (08:34→21:58)
[2017-05-21] MEDS: ONDANSETRON HCL 4 MG/2 ML VIAL IVP PRN (08:40)
--- NOTE | 2017-05-21 09:28 | PQ ---
Physician Query Response Document PATIENT: TANYA VALERA : 1945 ADMIT DATE: 05/18/2017 6:46 PM DISCH DATE: RESPONDING PROVIDER #: EAhmed QUERY TEXT: Kidney Failure Acuity Kidney Failure is documented in the Medical Record. Please specify the acuity Such as: -- Acute -- Chronic -- Acute on chronic -- Other, please specify Stages are defined by the [employer] as follows: CKD Stage I GFR >= 90 ml / min per 1.73 m2 and persistent albuminuria CKD Stage 2 GFR between 60 and 89 with persistent albuminuria CKD Stage 3 GFR between 30 and 59 CKD Stage 4 GFR between 15 and 29 CKD Stage 5 GFR between <15 or End Stage Renal Disease If you have any additional questions/comments and/or concerns, please do not hesitate to reach out to the CDI/Coding Hotline, Ext. [phone] The patient's Clinical Indicators include: BUN on admission 46 REGISTERED NURSE 2.20 GFR 22 Query created by: Stefany Musa on 05/19/2017 3:02 PM RESPONSE TEXT: Acute renal insufficiency Electronically signed by: Kaushal Burks MD 05/21/2017 9:24 AM
--- NOTE | 2017-05-21 09:44 | HHI.PR ---
Subjective History of Present Illness Patient have low oxygen saturation at night on nasal canula oxygen Lasix changed to IV D/W CINDY Mendoza at bed side no other issue. Infectious disease input noted on Cefazolin 1 gIV q8hrs + Doxy 100 mg po bid Review of Systems Constitutional Constitutional: Fatigue, Weakness Constitutional Remarks Obesity Integumentary Skin: Wounds Skin Remarks right lower leg swelling/ pain/ wound improving Vitals/Results Intake & Output 05/20/17 05/20/17 05/21/17 15:00 23:00 07:00 Intake Total 780 ml 350 ml 100 ml Balance 780 ml 350 ml 100 ml Intake Oral 780 ml 240 ml IV Total 110 ml 100 ml # Voids 4 2 2 # Bowel Movements 3 Vital Signs Vital Signs Date Time Temp Pulse Resp B/P Pulse Ox O2 Delivery O2 Flow Rate FiO2 05/21/17 08:45 98 Nasal Cannula 2.00 05/21/17 08:00 97.3 59 20 142/61 100 05/21/17 04:27 96.5 60 18 135/75 100 05/21/17 00:29 96.2 60 16 110/66 97 05/20/17 21:00 60 05/20/17 20:35 96.8 59 14 109/64 93 05/20/17 20:32 87 21 05/20/17 16:00 97.0 68 18 128/62 95 05/20/17 11:54 97.6 69 18 115/70 95 CBC/BMP: 05/21/17 0606 05/21/17 0606 Lab Results Laboratory Tests Test 05/21/17 06:06 White Blood Count 9.6 TH/MM3 Red Blood Count 3.51 MIL/MM3 Hemoglobin 10.4 GM/DL Hematocrit 32.2 % Mean Corpuscular Volume 91.7 FL Mean Corpuscular Hemoglobin 29.5 PG Mean Corpuscular Hemoglobin 32.2 % Concent Red Cell Distribution Width 13.7 % Platelet Count 237 TH/MM3 Mean Platelet Volume 8.8 FL Neutrophils (%) (Auto) 74.3 % Lymphocytes (%) (Auto) 8.9 % Monocytes (%) (Auto) 12.0 % Eosinophils (%) (Auto) 4.6 % Basophils (%) (Auto) 0.2 % Neutrophils # (Auto) 7.1 TH/MM3 Lymphocytes # (Auto) 0.9 TH/MM3 Monocytes # (Auto) 1.2 TH/MM3 Eosinophils # (Auto) 0.4 TH/MM3 Basophils # (Auto) 0.0 TH/MM3 CBC Comment DIFF FINAL Differential Comment Prothrombin Time 26.7 SEC Prothromb Time International 2.3 RATIO Ratio Sodium Level 142 MEQ/L Potassium Level 4.0 MEQ/L Chloride Level 104 MEQ/L Carbon Dioxide Level 32.1 MEQ/L Anion Gap 6 MEQ/L Blood Urea Nitrogen 49 MG/DL Creatinine 2.40 MG/DL Estimat Glomerular Filtration 20 ML/MIN Rate Random Glucose 102 MG/DL Calcium Level 8.6 MG/DL Total Bilirubin 0.4 MG/DL Aspartate Amino Transf 16 U/L (AST/SGOT) Alanine Aminotransferase 18 U/L (ALT/SGPT) Alkaline Phosphatase 93 U/L Total Protein 6.4 GM/DL Albumin 2.6 GM/DL Physical Exam General General Appearance: Well Developed, Well Nourished, No Acute Distress, Comfortable Eyes Eye Exam: Sclera White, Extraocular Movement Intact Throat Throat Exam: Oral Mucosa [place] & Moist, Oral Pharynx Normal Neck Neck Exam: Neck Supple, Trachea Midline Pulmonary Resp Exam: Clear Bilaterally, Breath Sounds Equal, No Distress Cardiology CV Exam: Regular, Normal Sinus Rhythm Gastrointestinal/Abdomen GI Exam: Soft, Non-Tender, Bowel Sounds Present Integumentary Skin Exam: Clear, Warm Skin Remarks wound / erythema/ swelling right lower extremity..improving Extremeties Extremities Exam: Pitting Edema Neurologic Neuro Exam: Alert, Awake, Oriented, Speech Clear, Moving All Extremities, No Focal Deficits Psychiatric Psych Exam: Appropriate Responses PUD Prophylasis PUD Prophylaxis: Protonix Assessment/Plan Assessment/Plan ASSESSMENT AND PLAN This is a 71-year-old female who came to the ER with diagnosis - 1. Cellulitis of the right lower extremity. Venous Doppler negative for DVT. Infectious disease input noted stopped clindamycin and Start Cefazolin 1 gIV q8hrs + Doxy 100 mg po BID. Further recommendation of antibiotic per Infectious Disease. 2. Chronic renal failure. We will monitor BUN and creatinine. 3. History of atrial fibrillation. rate controlled The patient on Coumadin. INR 2.3. We will monitor PT/INR daily. The patient also on amiodarone 200 mg p.o. daily, carvedilol 6.25 mg p.o. daily 4. Cellulitis of the right lower extremity. The patient is on Cefazolin 1 gIV q8hrs + Doxy 100 mg po BID. 5. History of gout. Continue home medication. 6. Diabetes mellitus. ADA 1800 calorie diet. NovoLog low-dose sliding scale. Continue Lantus. Monitor blood sugars a.c and q.h.s. 7. Vitamin D deficiency. Continue home medication. 8. History of congestive heart failure. The patient's BNP is high but the patient clinically does not have congestive heart failure. No crackles, no shortness of breath. on IV Lasix, 9. DVT prophylaxis. Coumadin. 10. GI prophylaxis. Protonix 40 mg p.o. daily. 11. History of insomnia. Continue with Restoril 15 mg p.o. at bedtime. 12. History of constipation. Continue home medication. 13. Desaturation at night need to see band shover as out patient need sleep study. We are going to manage the patient on a daily basis and make recommendation on a daily basis. Check CBC with diff CMP in AM. Discussed Condition with: Patient Kaushal Burks MD May 21, 2017 09:44
[2017-05-21] MEDS: WARFARIN SOD 2.5 MG TAB PO SCH (16:04)
[2017-05-21] MEDS: ACETAMINOPHEN/HYDROcodone 325 MG/5 MG TAB PO PRN (17:46)
[2017-05-21] MEDS: ATORVASTATIN 40 MG TAB PO SCH (21:58)
[2017-05-21] MEDS: INSULIN DETEMIR 100 UNITS/ML VIAL SQ SCH (22:03)
[2017-05-21] MEDS: TEMAZEPAM 15 MG CAP PO PRN (23:23)
[2017-05-22] VITALS (10 sets, daily range): BP systolic 119–139; BP diastolic 68–77; PULSE 60–73; RESP 18–22; TEMP 95.6–97.6; O2SAT 93–98
[2017-05-22] MEDS: INSULIN ASPART SUPPLEMENTAL SCALE SQ SCH ×4 (06:39→21:00)
[2017-05-22 06:42] LABS: AUTOMATED NEUTROPHIL # 6.8 TH/MM3 (1.8-7.7); BASOPHIL % 0.3 % (0.0-2.0); EOSINOPHIL # 0.6 TH/MM3 (0-0.4); EOSINOPHIL % 5.8 % (0.0-4.0); HEMATOCRIT 31.5 % (35.0-46.0); HEMO FLAGS DIFF FINAL; MEAN CELL VOLUME 91.7 FL (80.0-100.0); MEAN CORPUSCULAR HEMOGLOBIN 29.8 PG (27.0-34.0); MEAN CORPUSCULAR HGB CONC 32.5 % (32.0-36.0); MONO % 14.2 % (0.0-8.0); NEUT % 69.7 % (16.0-70.0); PLATELET COUNT 249 TH/MM3 (150-450); RED BLOOD COUNT 3.44 MIL/MM3 (4.00-5.30); RED CELL DISTRIBUTION WIDTH 13.4 % (11.6-17.2); WHITE BLOOD COUNT 9.8 TH/MM3 (4.0-11.0)
[2017-05-22 06:58] LABS: CHLORIDE 102 MEQ/L (98-107); POTASSIUM 3.6 MEQ/L (3.5-5.1); SODIUM (NA) 141 MEQ/L (136-145)
[2017-05-22 07:04] LABS: ANION GAP 7 MEQ/L (5-15); BICARBONATE 31.9 MEQ/L (21.0-32.0); BLOOD UREA NITROGEN 51 MG/DL (7-18); INTERNATIONAL NORMALIZED RATIO 1.9 RATIO; PROTHROMBIN TIME - PATIENT 21.3 SEC (9.8-11.6)
[2017-05-22 07:07] LABS: ALT (GPT) 13 U/L (10-53); AST (GOT) 11 U/L (15-37)
[2017-05-22 07:08] LABS: GLOMERULAR FILTRATION RATE 22 ML/MIN (>89)
[2017-05-22 07:09] LABS: TOTAL BILIRUBIN ADULT 0.5 MG/DL (0.2-1.0)
[2017-05-22 07:10] LABS: ALKALINE PHOSPHATASE 86 U/L (45-117)
[2017-05-22] MEDS: DOXYCYCLINE HYCLATE 100 MG CAP PO SCH ×2 (09:32→22:29)
[2017-05-22] MEDS: SODIUM CHLORIDE 0.9% FLUSH 10 ML FLUSH IV FLUSH SCH ×2 (09:32→21:00)
[2017-05-22] MEDS: CARVEDILOL 6.25 MG TAB PO SCH ×2 (09:32→22:29)
[2017-05-22] MEDS: POTASSIUM CHLORIDE 10 MEQ CONTROLLED RELEASE TAB PO SCH (09:32)
[2017-05-22] MEDS: ALLOPURINOL 100 MG TAB PO SCH (09:33)
[2017-05-22] MEDS: PANTOPRAZOLE SOD 40 MG DELAYED RELEASE TAB PO SCH (09:33)
[2017-05-22] MEDS: CALCITRIOL 0.25 MCG CAP PO SCH (09:33)
[2017-05-22] MEDS: DOCUSATE SODIUM 50 MG/SENNA 8.6 MG TAB PO SCH ×2 (09:33→22:29)
[2017-05-22] MEDS: METOLAZONE 5 MG TAB PO SCH (09:33)
[2017-05-22] MEDS: AMIODARONE 200 MG TAB PO SCH (09:33)
[2017-05-22] MEDS: ceFAZolin 500 MG/NS 100 ML IV SCH ×4 (09:33→22:27)
[2017-05-22] MEDS: FUROSEMIDE 40 MG/4 ML VIAL IV PUSH SCH (09:41)
--- NOTE | 2017-05-22 10:46 | HHI.PR ---
Subjective History of Present Illness Patient have low oxygen saturation at night on nasal canula oxygen D/W CINDY Wyatt no other issue. feeling better improving. Review of Systems Constitutional Constitutional: Fatigue, Weakness Constitutional Remarks Obesity Integumentary Skin: Wounds Skin Remarks right lower leg swelling/ pain/ wound improving Vitals/Results Intake & Output 05/21/17 05/21/17 05/22/17 15:00 23:00 07:00 Intake Total 720 ml 310 ml Balance 720 ml 310 ml Intake Oral 720 ml 210 ml IV Total 100 ml # Voids 3 4 # Bowel Movements 0 Vital Signs Vital Signs Date Time Temp Pulse Resp B/P Pulse Ox O2 Delivery O2 Flow Rate FiO2 05/22/17 08:00 97.6 60 20 126/68 97 05/22/17 07:50 93 Nasal Cannula 1.00 05/22/17 04:00 97.2 60 20 123/70 97 05/22/17 00:00 95.6 60 18 139/77 98 05/21/17 22:00 77 05/21/17 21:15 94 Nasal Cannula 1.00 05/21/17 20:00 96.4 60 18 103/57 94 05/21/17 16:22 97.4 59 20 108/65 98 05/21/17 12:00 97.8 60 21 116/81 99 CBC/BMP: 05/22/17 0554 05/22/17 0554 Lab Results Laboratory Tests Test 05/22/17 05:54 White Blood Count 9.8 TH/MM3 Red Blood Count 3.44 MIL/MM3 Hemoglobin 10.3 GM/DL Hematocrit 31.5 % Mean Corpuscular Volume 91.7 FL Mean Corpuscular Hemoglobin 29.8 PG Mean Corpuscular Hemoglobin 32.5 % Concent Red Cell Distribution Width 13.4 % Platelet Count 249 TH/MM3 Mean Platelet Volume 8.8 FL Neutrophils (%) (Auto) 69.7 % Lymphocytes (%) (Auto) 10.0 % Monocytes (%) (Auto) 14.2 % Eosinophils (%) (Auto) 5.8 % Basophils (%) (Auto) 0.3 % Neutrophils # (Auto) 6.8 TH/MM3 Lymphocytes # (Auto) 1.0 TH/MM3 Monocytes # (Auto) 1.4 TH/MM3 Eosinophils # (Auto) 0.6 TH/MM3 Basophils # (Auto) 0.0 TH/MM3 CBC Comment DIFF FINAL Differential Comment Prothrombin Time 21.3 SEC Prothromb Time International 1.9 RATIO Ratio Sodium Level 141 MEQ/L Potassium Level 3.6 MEQ/L Chloride Level 102 MEQ/L Carbon Dioxide Level 31.9 MEQ/L Anion Gap 7 MEQ/L Blood Urea Nitrogen 51 MG/DL Creatinine 2.20 MG/DL Estimat Glomerular Filtration 22 ML/MIN Rate Random Glucose 110 MG/DL Calcium Level 8.7 MG/DL Total Bilirubin 0.5 MG/DL Aspartate Amino Transf 11 U/L (AST/SGOT) Alanine Aminotransferase 13 U/L (ALT/SGPT) Alkaline Phosphatase 86 U/L Total Protein 6.4 GM/DL Albumin 2.5 GM/DL Physical Exam General General Appearance: Well Developed, Well Nourished, No Acute Distress, Comfortable Eyes Eye Exam: Sclera White, Extraocular Movement Intact Throat Throat Exam: Oral Mucosa [place] & Moist, Oral Pharynx Normal Neck Neck Exam: Neck Supple, Trachea Midline Pulmonary Resp Exam: Clear Bilaterally, Breath Sounds Equal, No Distress Cardiology CV Exam: Regular, Normal Sinus Rhythm Gastrointestinal/Abdomen GI Exam: Soft, Non-Tender, Bowel Sounds Present Integumentary Skin Exam: Clear, Warm Skin Remarks wound / erythema/ swelling right lower extremity..improving Extremeties Extremities Exam: Pitting Edema Neurologic Neuro Exam: Alert, Awake, Oriented, Speech Clear, Moving All Extremities, No Focal Deficits Psychiatric Psych Exam: Appropriate Responses PUD Prophylasis PUD Prophylaxis: Protonix Assessment/Plan Assessment/Plan ASSESSMENT AND PLAN This is a 71-year-old female who came to the ER with diagnosis - 1. Cellulitis of the right lower extremity. Venous Doppler negative for DVT. Infectious disease input noted stopped clindamycin and Start Cefazolin 1 gIV q8hrs + Doxy 100 mg po BID. Further recommendation of antibiotic per Infectious Disease. 2. Chronic renal failure. We will monitor BUN and creatinine. 3. History of atrial fibrillation. rate controlled The patient on Coumadin. INR 1.9. We will monitor PT/INR daily. The patient also on amiodarone 200 mg p.o. daily, carvedilol 6.25 mg p.o. daily 4. Cellulitis of the right lower extremity. The patient is on Cefazolin 1 gIV q8hrs + Doxy 100 mg po BID. 5. History of gout. Continue home medication. 6. Diabetes mellitus. ADA 1800 calorie diet. NovoLog low-dose sliding scale. Continue Lantus. Monitor blood sugars a.c and q.h.s. 7. Vitamin D deficiency. Continue home medication. 8. History of congestive heart failure. The patient's BNP is high but the patient clinically does not have congestive heart failure. No crackles, no shortness of breath. on IV Lasix, 9. DVT prophylaxis. Coumadin. 10. GI prophylaxis. Protonix 40 mg p.o. daily. 11. History of insomnia. Continue with Restoril 15 mg p.o. at bedtime. 12. History of constipation. Continue home medication. 13. Desaturation at night need to see appraisal specialist as out patient need sleep study. We are going to manage the patient on a daily basis and make recommendation on a daily basis. Check CBC with diff CMP in AM. Discussed Condition with: Patient Kaushal Burks MD May 22, 2017 10:46 Kaushal Burks MD May 22, 2017 10:46
[2017-05-22] MEDS: ACETAMINOPHEN/HYDROcodone 325 MG/5 MG TAB PO PRN (15:55)
[2017-05-22] MEDS: WARFARIN SOD 2.5 MG TAB PO SCH (15:55)
[2017-05-22] MEDS ORDERED: WARFARIN SOD 1 MG TAB PO ONE (16:00)
[2017-05-22] MEDS: ATORVASTATIN 40 MG TAB PO SCH (22:29)
[2017-05-22] MEDS: INSULIN DETEMIR 100 UNITS/ML VIAL SQ SCH (22:33)
[2017-05-23 00:30] VITALS: BP 113/63; PULSE 60; RESP 20; TEMP 97.7; O2SAT 98
[2017-05-23] MEDS: TEMAZEPAM 15 MG CAP PO PRN (01:06)
[2017-05-23] MEDS: ACETAMINOPHEN/HYDROcodone 325 MG/5 MG TAB PO PRN (01:07)
[2017-05-23 04:00] VITALS: BP 108/57; PULSE 60; RESP 20; TEMP 97.7; O2SAT 97
[2017-05-23] MEDS: INSULIN ASPART SUPPLEMENTAL SCALE SQ SCH (05:23)
[2017-05-23 06:49] LABS: AUTOMATED NEUTROPHIL # 7.5 TH/MM3 (1.8-7.7); BASOPHIL # 0.1 TH/MM3 (0-0.2); BASOPHIL % 0.5 % (0.0-2.0); EOSINOPHIL # 0.5 TH/MM3 (0-0.4); EOSINOPHIL % 4.6 % (0.0-4.0); HEMATOCRIT 29.9 % (35.0-46.0); HEMO FLAGS DIFF FINAL; LYMPH % 11.2 % (9.0-44.0); LYMPHOCYTE # 1.2 TH/MM3 (1.0-4.8); MEAN CELL VOLUME 91.3 FL (80.0-100.0); MEAN CORPUSCULAR HEMOGLOBIN 29.3 PG (27.0-34.0); MEAN CORPUSCULAR HGB CONC 32.1 % (32.0-36.0); MONO % 11.9 % (0.0-8.0); NEUT % 71.8 % (16.0-70.0); PLATELET COUNT 230 TH/MM3 (150-450); RED BLOOD COUNT 3.27 MIL/MM3 (4.00-5.30); RED CELL DISTRIBUTION WIDTH 13.4 % (11.6-17.2); WHITE BLOOD COUNT 10.5 TH/MM3 (4.0-11.0)
[2017-05-23 07:02] LABS: CHLORIDE 102 MEQ/L (98-107); POTASSIUM 3.4 MEQ/L (3.5-5.1); SODIUM (NA) 141 MEQ/L (136-145)
[2017-05-23 07:04] LABS: INTERNATIONAL NORMALIZED RATIO 1.8 RATIO; PROTHROMBIN TIME - PATIENT 20.4 SEC (9.8-11.6)
[2017-05-23 07:08] LABS: ANION GAP 6 MEQ/L (5-15); BICARBONATE 32.7 MEQ/L (21.0-32.0); BLOOD UREA NITROGEN 54 MG/DL (7-18)
[2017-05-23 07:11] LABS: ALT (GPT) 10 U/L (10-53); AST (GOT) 11 U/L (15-37); GLOMERULAR FILTRATION RATE 22 ML/MIN (>89)
[2017-05-23 07:12] LABS: TOTAL BILIRUBIN ADULT 0.4 MG/DL (0.2-1.0)
[2017-05-23 07:14] LABS: ALKALINE PHOSPHATASE 84 U/L (45-117)
[2017-05-23 08:00] VITALS: BP 131/72; PULSE 72; RESP 17; TEMP 97.7; O2SAT 94
--- NOTE | 2017-05-23 08:28 | HHI.PR ---
Subjective History of Present Illness Patient have low oxygen saturation at night on nasal canula oxygen no other issue. feeling better improving. d/w ID Dr Olivares ok to dc home today for 1 week of ceftin Review of Systems Constitutional Constitutional: Fatigue, Weakness Constitutional Remarks Obesity Integumentary Skin: Wounds Skin Remarks right lower leg swelling/ pain/ wound improving Vitals/Results Intake & Output 05/22/17 05/22/17 05/23/17 15:00 23:00 07:00 Intake Total 800 ml 580 ml Output Total 400 ml Balance 800 ml 180 ml Intake Oral 800 ml 480 ml IV Total 100 ml Output Urine Total 400 ml # Voids 5 2 # Bowel Movements 1 1 Vital Signs Vital Signs Date Time Temp Pulse Resp B/P Pulse Ox O2 Delivery O2 Flow Rate FiO2 05/23/17 08:00 97.7 72 17 131/72 94 05/23/17 04:00 97.7 60 20 108/57 97 05/23/17 00:30 97.7 60 20 113/63 98 05/22/17 20:30 60 05/22/17 20:15 96.8 60 18 121/76 97 05/22/17 20:07 95 Nasal Cannula 1.00 05/22/17 16:00 97.3 60 22 119/70 94 05/22/17 15:37 60 05/22/17 12:00 97.6 73 21 126/75 98 CBC/BMP: 05/23/17 0550 05/23/17 0550 Lab Results Laboratory Tests Test 05/23/17 05:50 White Blood Count 10.5 TH/MM3 Red Blood Count 3.27 MIL/MM3 Hemoglobin 9.6 GM/DL Hematocrit 29.9 % Mean Corpuscular Volume 91.3 FL Mean Corpuscular Hemoglobin 29.3 PG Mean Corpuscular Hemoglobin 32.1 % Concent Red Cell Distribution Width 13.4 % Platelet Count 230 TH/MM3 Mean Platelet Volume 8.9 FL Neutrophils (%) (Auto) 71.8 % Lymphocytes (%) (Auto) 11.2 % Monocytes (%) (Auto) 11.9 % Eosinophils (%) (Auto) 4.6 % Basophils (%) (Auto) 0.5 % Neutrophils # (Auto) 7.5 TH/MM3 Lymphocytes # (Auto) 1.2 TH/MM3 Monocytes # (Auto) 1.2 TH/MM3 Eosinophils # (Auto) 0.5 TH/MM3 Basophils # (Auto) 0.1 TH/MM3 CBC Comment DIFF FINAL Differential Comment Prothrombin Time 20.4 SEC Prothromb Time International 1.8 RATIO Ratio Sodium Level 141 MEQ/L Potassium Level 3.4 MEQ/L Chloride Level 102 MEQ/L Carbon Dioxide Level 32.7 MEQ/L Anion Gap 6 MEQ/L Blood Urea Nitrogen 54 MG/DL Creatinine 2.20 MG/DL Estimat Glomerular Filtration 22 ML/MIN Rate Random Glucose 116 MG/DL Calcium Level 8.9 MG/DL Total Bilirubin 0.4 MG/DL Aspartate Amino Transf 11 U/L (AST/SGOT) Alanine Aminotransferase 10 U/L (ALT/SGPT) Alkaline Phosphatase 84 U/L Total Protein 6.1 GM/DL Albumin 2.4 GM/DL Physical Exam General General Appearance: Well Developed, Well Nourished, No Acute Distress, Comfortable Eyes Eye Exam: Sclera White, Extraocular Movement Intact Throat Throat Exam: Oral Mucosa [place] & Moist, Oral Pharynx Normal Neck Neck Exam: Neck Supple, Trachea Midline Pulmonary Resp Exam: Clear Bilaterally, Breath Sounds Equal, No Distress Cardiology CV Exam: Regular, Normal Sinus Rhythm Gastrointestinal/Abdomen GI Exam: Soft, Non-Tender, Bowel Sounds Present Integumentary Skin Exam: Clear, Warm Skin Remarks wound / erythema/ swelling right lower extremity..improving Extremeties Extremities Exam: Pitting Edema Neurologic Neuro Exam: Alert, Awake, Oriented, Speech Clear, Moving All Extremities, No Focal Deficits Psychiatric Psych Exam: Appropriate Responses PUD Prophylasis PUD Prophylaxis: Protonix Assessment/Plan Assessment/Plan ASSESSMENT AND PLAN This is a 71-year-old female who came to the ER with diagnosis - 1. Cellulitis of the right lower extremity. Venous Doppler negative for DVT. Infectious disease input noted stopped clindamycin and Start Cefazolin 1 gIV q8hrs + Doxy 100 mg po BID. Further recommendation of antibiotic per Infectious Disease. 2. Chronic renal failure. We will monitor BUN and creatinine. 3. History of atrial fibrillation. rate controlled The patient on Coumadin. INR 1.9. We will monitor PT/INR daily. The patient also on amiodarone 200 mg p.o. daily, carvedilol 6.25 mg p.o. daily 4. Cellulitis of the right lower extremity. The patient is on Cefazolin 1 gIV q8hrs + Doxy 100 mg po BID. 5. History of gout. Continue home medication. 6. Diabetes mellitus. ADA 1800 calorie diet. NovoLog low-dose sliding scale. Continue Lantus. Monitor blood sugars a.c and q.h.s. 7. Vitamin D deficiency. Continue home medication. 8. History of congestive heart failure. The patient's BNP is high but the patient clinically does not have congestive heart failure. No crackles, no shortness of breath. on IV Lasix, 9. DVT prophylaxis. Coumadin. 10. GI prophylaxis. Protonix 40 mg p.o. daily. 11. History of insomnia. Continue with Restoril 15 mg p.o. at bedtime. 12. History of constipation. Continue home medication. 13. Desaturation at night need to see carding utility tender as out patient need sleep study. d/w ID Dr Marshall sharpe to hi home today for 1 week of ceftin ok to hi home today. f/u with PCP/ ID 1 week. Discussed Condition with: Patient Kaushal Burks MD May 23, 2017 08:27
[2017-05-23] MEDS ORDERED: CEFU1TAB20 PO (08:44)
[2017-05-23] MEDS: CALCITRIOL 0.25 MCG CAP PO SCH (08:54)
[2017-05-23] MEDS: POTASSIUM CHLORIDE 10 MEQ CONTROLLED RELEASE TAB PO SCH (08:54)
[2017-05-23] MEDS: ceFAZolin 500 MG/NS 100 ML IV SCH ×2 (08:55)
[2017-05-23] MEDS: PANTOPRAZOLE SOD 40 MG DELAYED RELEASE TAB PO SCH (08:55)
[2017-05-23] MEDS: CARVEDILOL 6.25 MG TAB PO SCH (08:55)
[2017-05-23] MEDS: AMIODARONE 200 MG TAB PO SCH (08:55)
[2017-05-23] MEDS: FUROSEMIDE 40 MG/4 ML VIAL IV PUSH SCH (08:55)
[2017-05-23] MEDS: DOXYCYCLINE HYCLATE 100 MG CAP PO SCH (08:55)
[2017-05-23] MEDS: ALLOPURINOL 100 MG TAB PO SCH (08:55)
[2017-05-23] MEDS: METOLAZONE 5 MG TAB PO SCH (08:55)
[2017-05-23] MEDS: DOCUSATE SODIUM 50 MG/SENNA 8.6 MG TAB PO SCH (08:58)
[2017-05-23] MEDS: SODIUM CHLORIDE 0.9% FLUSH 10 ML FLUSH IV FLUSH SCH (09:00)
[2017-05-23] MEDS ORDERED: POTASSIUM CHLORIDE 10 MEQ CONTROLLED RELEASE TAB PO ONE (09:00)
[2017-05-23] MEDS ORDERED: WARFARIN SOD 4 MG TAB PO SCH (16:00)
[2017-05-24] MEDS ORDERED: ERGOCALCIFEROL (VIT D2) 50,000 UNIT CAP PO SCH (09:00)
== END 2017-05-23 13:09 | disposition home or self-care (01) | DRG 603 ==
LOC: PHED 17:14 → PHEDA 18:46 → PH3B 21:11
PROVIDERS: ADMIT Family Medicine; ATTEND Family Medicine
DX: L03.115 Cellulitis of right lower limb (principal); N17.9 Acute kidney failure, unspecified; E11.22 Type 2 diabetes mellitus with diabetic chronic kidney disease; N39.0 Urinary tract infection, site not specified; Z68.42 Body mass index [BMI] 45.0-49.9, adult; I48.91 Unspecified atrial fibrillation; M10.9 Gout, unspecified; E55.9 Vitamin D deficiency, unspecified; G47.00 Insomnia, unspecified; K59.00 Constipation, unspecified; N18.9 Chronic kidney disease, unspecified; E66.9 Obesity, unspecified; I12.9 Hypertensive chronic kidney disease with stage 1 through stage 4 chronic kidney disease, or unspecified chronic kidney disease; Z79.01 Long term (current) use of anticoagulants; Z95.810 Presence of automatic (implantable) cardiac defibrillator; Z79.4 Long term (current) use of insulin
CPT/HCPCS: 71010; 76937; 80048; 80053; 81001; 82948; 83605; 83880; 85025; 85610; 85730; 87040; 87070; 87077; 87086; 87186; 87205; 93005; 93971; 96365; 96375; J0690; J1815; J1940; J2405; J2543; J3370; J7040

== ENCOUNTER 2018-06-24 10:04 | Inpatient (IN) ==
[2018-06-24] MEDS ORDERED: Sodium Chlor 0.9% Inj 500 ML IV.SIG ONE (10:29)
[2018-06-24] MEDS ORDERED: Acetaminophen 650 MG Supp RECTAL ONE (10:35)
[2018-06-24 10:46] LABS: Baso # (Auto) 0.9 th/mm3 (0.0-0.2); Baso % (Auto) 2.7 % (0.0-2.0); Hematocrit 41.9 % (35.0-46.0); Hemoglobin 13.6 gm/dL (11.6-15.3); Lymph # (Auto) 0.6 th/mm3 (1.0-4.8); Lymph % (Auto) 1.9 % (9.0-44.0); Mean Corpuscular HGB Conc 32.5 % (32.0-36.0); Mean Corpuscular Hemoglobin 30.7 pg (27.0-34.0); Mean Corpuscular Volume 94.4 fL (80.0-100.0); Mean Platelet Volume 9.7 fL (7.0-11.0); Mono # (Auto) 0.8 th/mm3 (0.0-0.9); Mono % (Auto) 2.3 % (0.0-8.0); Neut # (Auto) 30.6 th/mm3 (1.8-7.7); Neut % (Auto) 93.1 % (16.0-70.0); Platelet Count 177 th/mm3 (150-450); Red Blood Count 4.44 mil/mm3 (4.00-5.30); Red Cell Distribution Width 15.4 % (11.6-17.2); White Blood Count 32.9 th/mm3 (4.0-11.0)
[2018-06-24] MEDS ORDERED: Amiodarone Inj 150 MG in Dextrose 5% in Water Inj 97 ML IV.SIG ONE ×2 (10:47)
[2018-06-24 10:55] LABS: Chloride 105 meq/L (98-107); Potassium 4.3 meq/L (3.5-5.1); Sodium 142 meq/L (136-145)
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
[2018-06-24 10:59] LABS: Albumin 3.3 g/dL (3.4-5.0); Anion Gap 14 meq/L (5-15); Calcium 9.1 mg/dL (8.5-10.1); Carbon Dioxide 23.2 meq/L (21.0-32.0); Glucose,Random 147 mg/dL (74-106); Lipase 52 U/L (73-393)
[2018-06-24 11:00] LABS: Blood Urea Nitrogen 38 mg/dL (7-18)
[2018-06-24 11:01] LABS: Lymphocytes 8 % (9-44); Monocytes 2 % (0-8); Platelet Estimate Normal (Normal); Platelet Morphology Normal (Normal); RBC Morphology Normal (Normal)
[2018-06-24 11:02] LABS: Alanine Aminotransferase 36 U/L (10-53); Aspartate Aminotransferase 43 U/L (15-37); Glomerular Filtration Rate 20 mL/min (>89)
--- NOTE | 2018-06-24 11:03 | XR ---
EXAM DATE: 06/24/2018 10:59 AM EDT AGE/SEX: 72 years / Female INDICATIONS: Short of breath, chest pains CLINICAL DATA: This is the patient's initial encounter. Patient reports that signs and symptoms have been present for 1 day and indicates a pain score of 10/10. MEDICAL/SURGICAL HISTORY: Cardiovascular disease. Pacemaker. COMPARISON: [facility], CHEST SINGLE AP, 05/18/2017. . FINDINGS: A single AP view of the chest demonstrates cardiomegaly with increase in pulmonary vascularity and pe rihilar congestion. Left-sided defibrillator unchanged. The cardiomediastinal contours are unremarkab le. Osseous structures are intact. CONCLUSION: Cardiomegaly with increase in pulmonary vascularity and perihilar congestion Electronically signed by: Jarvis Stevens MD 06/24/2018 11:02 AM EDT
[2018-06-24 11:04] LABS: Total Protein 7.8 g/dL (6.4-8.2)
[2018-06-24 11:05] LABS: Alkaline Phosphatase 120 U/L (45-117); Creatine Kinase 467 U/L (26-192)
[2018-06-24] MEDS ORDERED: Piperacil/Tazo 3.375 GM Premix 50 ML IV.SIG ONE (11:05)
[2018-06-24 11:14] LABS: Activated Partial Thrombo Time 36.6 sec (24.3-30.1); INR 1.7 Ratio; Prothrombin Time 16.9 sec (9.8-11.6)
[2018-06-24 11:16] LABS: Troponin I 1.67 ng/mL (0.02-0.05)
[2018-06-24 11:17] LABS: CKMB Percent 0.4 % (0.0-4.0); Creatine Kinase MB 1.7 ng/mL (0.5-3.6)
[2018-06-24] MEDS ORDERED: Aspirin 325 MG Tablet PO ONE (11:29)
[2018-06-24] MEDS ORDERED: Magnesium Sulfate Inj 2 GM in Sodium Chlor 0.9% Inj 96 ML IV.SIG ONE (11:46)
[2018-06-24] MEDS ORDERED: Heparin Drip 25,000 UNIT/250 ML BAG IV.CONT PRN (11:53)
[2018-06-24] MEDS ORDERED: Mag Sulf 1 gm/100 ml Premix 100 ML IV.SIG ONE (12:15)
--- NOTE | 2018-06-24 12:28 | CT ---
EXAM DATE: 06/24/2018 12:20 PM EDT AGE/SEX: 72 years / Female INDICATIONS: Altered mental status. CLINICAL DATA: This is the patient's initial encounter. Patient reports that signs and symptoms have been present for 1 day and indicates a pain score of 0/10. MEDICAL/SURGICAL HISTORY: Cardiovascular disease. Diabetes. Hypertension. Pacemaker. Defibrillat or. RADIATION DOSE: 29.78 CTDI (mGy) COMPARISON: [facility], CT BRAIN W/O CONTRAST, 07/23/2015. . TECHNIQUE: CT of the head without contrast. Using automated exposure control and adjustment of the mA and/or kV according to patient size, radiation dose was kept as low as reasonably achievable to ob tain optimal diagnostic quality images. DICOM format image data is available electronically for revi ew and comparison. FINDINGS: Cerebrum: The ventricles are normal for age. No evidence of midline shift, mass lesion, hemorrhage or acute infarction. No extraaxial fluid collections are seen. Posterior Fossa: The cerebellum and brainstem are intact. The 4th ventricle is midline. The cerebe llopontine angle is unremarkable. Extracranial: The visualized portion of the orbits is intact. Skull: The calvaria is intact. No evidence of skull fracture. CONCLUSION: 1. No acute intracranial abnormality . Electronically signed by: Jarvis Stevens MD 06/24/2018 12:27 PM EDT
--- NOTE | 2018-06-24 12:30 | CT ---
EXAM DATE: 06/24/2018 12:21 PM EDT AGE/SEX: 72 years / Female INDICATIONS: Chest pain and shortness of breath. CLINICAL DATA: This is the patient's initial encounter. Patient reports that signs and symptoms have been present for 2 days and indicates a pain score of 5/10. MEDICAL/SURGICAL HISTORY: Congestive heart failure. Diabetes. Hypertension. Atrial fibrillation. Pacemaker. Defibrillator. RADIATION DOSE: 30.95 CTDI (mGy) COMPARISON: [facility], CT CHEST W/O CONTRAST, 07/23/2015. . TECHNIQUE: Multiple contiguous axial images were obtained through the chest without contrast. Image s were obtained in suspended respiration using multiple row detector helical technique. Using automa jesus exposure control and adjustment of the mA and/or kV according to patient size, radiation dose was kept as low as reasonably achievable to obtain optimal diagnostic quality images. DICOM format imag e data is available electronically for review and comparison. FINDINGS: Lungs: Dependent densities in the lower lobes likely atelectasis. Mediastinum: There is good visualization of the great vessels of the middle mediastinum. No evidenc e of mediastinal or hilar adenopathy/mass. Heart is enlarged. Pacemaker leads are seen. Minimal coron carmenza artery calcifications. Pleurae: No evidence of focal thickening or pleural effusion. Axillae: Unremarkable. Bony Structures: Unremarkable. Miscellaneous: The examination was extended to include the upper abdomen, and both adrenal glands ar e normal in size and configuration. CONCLUSION: 1. Minimal bibasilar atelectasis. 2. Cardiomegaly minimal coronary artery calcifications. Electronically signed by: Jarvis Stevens MD 06/24/2018 12:29 PM EDT
--- NOTE | 2018-06-24 13:51 | US ---
EXAM DATE: 06/24/2018 1:46 PM EDT AGE/SEX: 72 years / Female INDICATIONS: Shortness of breath. CLINICAL DATA: This is the patient's initial encounter. Patient reports that signs and symptoms have been present for 1 day and indicates a pain score of 0/10. MEDICAL/SURGICAL HISTORY: None. CHF. Diabetic. HTN. Pacemaker. COMPARISON: [facility], CT TIBIA W/O CONTRAST, RIGHT, 06/24/2017. . TECHNIQUE: Venous ultrasound of both lower extremities was performed from the inguinal ligament to t he proximal calf. Real-time, color Doppler and spectral tracing, compression and augmentation techni ques were used. FINDINGS: Right Leg: Normal compression of the deep venous system from the inguinal region to the proximal narcisa f. No echogenic clot is seen. Normal response of the venous system to augmentation and respiration. Left Leg: Normal compression of the deep venous system from the inguinal region to the proximal calf . No echogenic clot is seen. Normal response of the venous system to augmentation and respiration. Other: None. CONCLUSION: No venous thrombosis is identified within either lower extremity. Electronically signed by: Anibal Guerrero MD 06/24/2018 1:50 PM EDT
--- NOTE | 2018-06-24 14:52 | NM ---
EXAM DATE: 06/24/2018 2:19 PM EDT AGE/SEX: 72 years / Female INDICATIONS: Dyspnea. CLINICAL DATA: This is the patient's initial encounter. Patient reports that signs and symptoms have been present for 1 day and indicates a pain score of 0/10. MEDICAL/SURGICAL HISTORY: Congestive heart failure. Diabetes mellitus type II. Hypertension. Atrial fibrillation. Defibrillator. COMPARISON: [facility], CHEST 1V SINGLE AP, 06/24/2018. . DOSE: 1.2 mCi Tc99m DTPA aerosol 8.5 mCi Tc99m MAA IV TECHNIQUE: Following five minutes of tidal breathing of DTPA aerosol, planar images of the lungs wer e performed in eight projections. The patient was then injected with MAA, and eight-view perfusion s can was performed. FINDINGS: There is a homogeneous pattern of aerosol delivery to the periphery of both lungs. No focal ventilat ory defects are seen. Mild clumping of activity in the central airways is present. The perfusion lung scan demonstrates a homogenous pattern of uptake in both lungs. No significant se gmental or subsegmental defects are seen. Chest x-ray demonstrates bibasilar pleural-parenchymal opacities. CONCLUSION: No significant ventilation/perfusion mismatches identified. Examination is low probability for PE. Electronically signed by: Anibal Guerrero MD 06/24/2018 2:51 PM EDT
[2018-06-24 14:55] LABS: Activated Partial Thrombo Time 37.5 sec (24.3-30.1); INR 1.5 Ratio; Prothrombin Time 15.6 sec (9.8-11.6)
[2018-06-24 15:13] LABS: CKMB Percent 0.3 % (0.0-4.0); Creatine Kinase MB 1.5 ng/mL (0.5-3.6)
[2018-06-24 15:22] LABS: Troponin I 1.73 ng/mL (0.02-0.05)
--- NOTE | 2018-06-24 16:49 | P.HPCC ---
History of Present Illness Service: Critical care medicine Primary Care Physician: Phillip Arevalo MD Chief Complaint: chest pain History of Present Illness: This is a 72yF with history of ischemic cardiomyopathy and an EF 30-35% who presents to the ER after her ICD started shocking her. She states she has had about 3 days of substernal chest pain which is associated with nausea, shortness of breath, dyspnea on exertion. she denies vomiting, diarrhea, constipation or abdominal pain. she endorses a few chills, but denies fever, cough, runny nose, sick contacts. In the ER, the AICD fired a number of times. in the ER additionally she was febrile to 38.1C. She has a wbc 32k with 93% neutrophil predominance and 13% bands. her lactate is 5, t.bili 1.5, Cr 2.4 which is at her baseline of 2.4 from prior documented laboratory data this year. AST/ALT elevated at 43/36. Trop 1.67 and trended to 1.73. BNP 2627. Remainder of the ROS is negative and she denies any changes to her medical history up until the last 3 days. I interrogated her Biotron[employer] AICD: she had 13 episodes of VF with 10 AICD defibrillations. Upon review of these, they appear to be very short runs of VT which quickly transition to VF before successful cardioversion by AICD. I have spoken with Dr. 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 Inpatient Certification: I certify that the inpatient services were ordered in accordance with Medicare regulations governing the order. This includes certification that hospital inpatient services are reasonable and necessary and in the case of services not specified as inpatient-only under 42 CFR 419.22(n), that they are appropriately provided as inpatient services in accordance to with the 2-midnight benchmark under 43 CFR 412.3(e) Estimated Total Length of Stay (Days): 7 Plans for Post Hospital Care: Not yet determined Review of Systems All other systems reviewed negative except as stated in HPI PMFSH - History History Provided By: Patient - Medical History Medical History: Medical History (Last Updated 06/24/18 @ 10:59 by Polina Limon) Diabetes HTN (hypertension) Hx of cardiac pacemaker Atrial fibrillation CHF (congestive heart failure) - Surgical History Surgical History: Surgical History (Last Reviewed 06/24/18 @ 10:58 by Polina Limon) AICD (automatic cardioverter/defibrillator) present - Tobacco History Second Hand Smoke Exposure: No Tobacco Use In Past 30 Days: No Smoking Status: Former smoker - Alcohol History How Often Do You Have a Drink Containing Alcohol: Never - Substance Use History Substance History: No History of Abuse - Travel History Recent Travel in the [place] Within the Last 8 Weeks: No Recent Travel Out of the Country Within the Last 8 Weeks: No - Immunization History Tetanus Immunization: Unsure Hx Influenza Vaccine This Season: Unable to Assess Medications and Allergies Active Medications: Active Medications Albuterol (Duoneb Neb (Prn)) 1 ampul NEB Q2HR NEB PRN PRN Reason: WHEEZING Chlorhexidine Gluconate (Chlorhexidine 2% Cloth) 3 pack TOPICAL DAILY@0400 NATALEE Stop: 06/30/18 03:59 Chlorhexidine Gluconate (Chlorhexidine 2% Cloth) 3 pack TOPICAL DAILY@0400 PRN PRN Reason: Extra cloth needed Stop: 06/30/18 03:59 Famotidine (Pepcid Pf Inj) 10 mg IV.PUSH Q12HR NATALEE Amiodarone HCl 450 mg/ (Dextrose) 250 mls @ 33.33 mls/hr IV.CONT TITRATE PRN; Protocol PRN Reason: Per Protocol Last Admin: 06/24/18 11:21 Dose: 1 mg/min, 33.33 mls/hr Heparin Sodium/Dextrose (Heparin/D5w 25,000 U/250 Ml) 25,000 unit in 250 mls @ 0 mls/hr IV.CONT TITRATE PRN; Protocol PRN Reason: Per Protocol Last Admin: 06/24/18 16:37 Dose: 1,000 units/hr, 10 mls/hr Ondansetron HCl (Zofran Inj) 4 mg IV.PUSH Q6H PRN PRN Reason: NAUSEA OR VOMITING Sodium Chloride (Ns Flush) 2 ml IV.FLUSH PRN PRN PRN Reason: FLUSH AFTER USING IV ACCESS Sodium Chloride (Ns Flush) 2 ml IV.FLUSH BID NATALEE Allergies Allergy/AdvReac Type Severity Reaction Status Date / Time vancomycin Allergy Severe ANAPHYLAXIS Verified 06/24/18 10:09 Home Medications Medication Instructions Recorded Confirmed Type Unable to Obtain Home Meds 06/24/18 06/24/18 History Results - Labs CBC & Chem 7: 06/24/18 10:30 06/24/18 10:30 Labs: Short CBC 06/24/18 Range/Units 10:30 WBC 32.9 H (4.0-11.0) th/mm3 Hgb 13.6 (11.6-15.3) gm/dL Hct 41.9 (35.0-46.0) % Plt Count 177 (150-450) th/mm3 BMP 06/24/18 10:30 Sodium 142 Potassium 4.3 Chloride 105 Carbon Dioxide 23.2 BUN 38 H Creatinine 2.40 H Calcium 9.1 Cardiac Enzymes 06/24/18 06/24/18 Range/Units 10:30 14:30 Total Creatine Kinase 467 H 474 H (26-192) U/L CK-MB (CK-2) 1.7 1.5 (0.5-3.6) ng/mL Troponin I 1.67 H* 1.73 H* (0.02-0.05) ng/mL Liver Function 06/24/18 Range/Units 10:30 Total Bilirubin 1.5 H (0.2-1.0) mg/dL AST 43 H (15-37) U/L ALT 36 (10-53) U/L Alkaline Phosphatase 120 H (45-117) U/L Albumin 3.3 L (3.4-5.0) g/dL - Imaging Impressions Chest X-Ray 06/24/18 10:29 CONCLUSION: Cardiomegaly with increase in pulmonary vascularity and perihilar congestion Head CT 06/24/18 10:31 CONCLUSION: 1. No acute intracranial abnormality . Pulmonary Perfusion Imaging 06/24/18 11:04 CONCLUSION: No significant ventilation/perfusion mismatches identified. Examination is low probability for PE. Venous Doppler Study 06/24/18 11:04 CONCLUSION: No venous thrombosis is identified within either lower extremity. Chest CT 06/24/18 11:07 CONCLUSION: 1. Minimal bibasilar atelectasis. 2. Cardiomegaly minimal coronary artery calcifications. Exam Vital signs: Vital Signs 06/24/18 10:09 06/24/18 10:30 06/24/18 10:34 Temperature 38.1 C H Pulse Rate 80 69 65 Respiratory Rate 22 18 20 Blood Pressure 123/59 L 127/76 145/63 H Pulse Oximetry 94 L 95 06/24/18 10:40 06/24/18 10:46 06/24/18 10:47 Temperature Pulse Rate 62 79 102 H Respiratory Rate 18 18 20 Blood Pressure 130/59 L 128/61 128/61 Pulse Oximetry 99 95 98 06/24/18 10:55 06/24/18 10:56 06/24/18 11:10 Temperature Pulse Rate 72 77 70 Respiratory Rate 18 18 18 Blood Pressure 125/68 125/68 121/64 Pulse Oximetry 94 L 93 L 96 06/24/18 11:25 06/24/18 11:45 06/24/18 11:55 Temperature Pulse Rate 62 60 60 Respiratory Rate 18 20 19 Blood Pressure 123/62 119/62 125/61 Pulse Oximetry 96 95 06/24/18 12:22 06/24/18 12:37 06/24/18 14:22 Temperature 36.8 C Pulse Rate 98 H 100 H 60 Respiratory Rate 18 22 19 Blood Pressure 122/81 100/61 Pulse Oximetry 94 L 93 L 97 06/24/18 14:44 06/24/18 16:00 06/24/18 16:45 Temperature 36.8 C Pulse Rate 59 L 62 Respiratory Rate 24 Blood Pressure 104/53 L Pulse Oximetry 98 97 Intake & Output 06/23/18 06/24/18 06/24/18 18:59 06:59 18:59 Intake Total 450 / 450 Balance 450 / 450 Weight 138 kg Intake: IV 450 / 450 Cordarone Inj 150 MG In D5W Inj 100 / 100 97 ML @ 600 mls/hr IV.SIG ONCE ONE Rx#:[id number] Magnesium Sulfate 1 gm/D5W 100 100 / 100 ml Premix 100 ML @ 50 mls/hr IV .SIG ONCE ONE Rx#:[id number] Zosyn 3.375 GM Premix 50 ML @ 50 / 50 100 mls/hr IV.SIG ONCE ONE Rx#: [id number] NS Inj 500 ML @ Wide Open IV. 200 / 200 SIG ONCE ONE Rx#:[id number] Other: Date of Last Bowel Movement 06/23/18 Narrative: gen: obese female, lying in bed, short of breath. heent: nc. at. perrl. mmm. neck: +JVD. trachea midline. chest: equal chest rise. nc o2. tachypneic. can talk in full sentences. cv: normal rate, regular rhythm. sinus. abd: obese, soft, nontender, nondistended. no guarding. extr: warm, well perfused. bilateral lower extremities with venous stasis changes. distal pulses 2+. neuro: RASS 0. CAM -. GCS 15. follows commands. no focal deficits. Septic Shock Reassessment Septic shock perfusion: reassessment completed Caprini VTE Risk Assessment Caprini VTE Risk Assessment: Moderate/High Risk (score >= 2) Caprini Risk Assessment Model: Point Value = 1 Point Value = 2 Point Value = 3 Point Value = 5 Age 41-60 Minor surgery BMI > 25 kg/m2 Swollen legs Varicose veins or History of unexplained or recurrent spontaneous Oral contraceptives or hormone replacement Sepsis (< 1 month) Serious lung disease, including pneumonia (< 1 month) Abnormal pulmonary function Acute myocardial infarction Congestive heart failure (< 1 month) History of inflammatory bowel disease Medical patient at bed rest Age 61-74 Arthroscopic surgery Major open surgery (> 45 min) Laparoscopic surgery (> 45 min) Malignancy Confined to bed (> 72 hours) Immobilizing plaster cast Central venous access Age >= 75 History of VTE Family history of VTE Factor V Leiden Prothrombin [id number] Lupus anticoagulant Anticardiolipin antibodies Elevated serum homocysteine Heparin-induced thrombocytopenia Other congenital or acquired thrombophilia Stroke (< 1 month) Elective arthroplasty Hip, pelvis, or leg fracture Acute spinal cord injury (< 1 month) Prophylaxis Regimen: Total Risk Factor Score Risk Level Prophylaxis Regimen 0-1 Low Early ambulation 2 Moderate Order ONE of the following: *Sequential Compression Device (SCD) *Heparin 5000 units SQ BID 3-4 Higher Order ONE of the following medications: *Heparin 5000 units SQ TID *Enoxaparin/Lovenox 40 mg SQ daily (WT < 150 kg, CrCl > 30 mL/min) *Enoxaparin/Lovenox 30 mg SQ daily (WT < 150 kg, CrCl > 10-29 mL/min) *Enoxaparin/Lovenox 30 mg SQ BID (WT < 150 kg, CrCl > 30 mL/min) AND/OR *Sequential Compression Device (SCD) 5 or more Highest Order ONE of the following medications: *Heparin 5000 units SQ TID (Preferred with Epidurals) *Enoxaparin/Lovenox 40 mg SQ daily (WT < 150 kg, CrCl > 30 mL/min) *Enoxaparin/Lovenox 30 mg SQ daily (WT < 150 kg, CrCl > 10-29 mL/min) *Enoxaparin/Lovenox 30 mg SQ BID (WT < 150 kg, CrCl > 30 mL/min) AND *Sequential Compression Device (SCD) Assessment and Plan - Assessment and Plan Plan: Assessment: 72yF with ischemic cardiomyopathy and a last known EF of ~30-35% who presents with symptoms concerning for acute coronary syndrome and 13 episodes of ventricular fibrillation s/p 10 AICD defibrillations. will heparinize and trend troponins. Certainly she is also in acute systolic congestive heart failure exacerbation and Cardiogenic shock secondary to her multiple v. fib episodes. she is critically ill with acute myocardial dysfunction. Plan by systems: Neurologic: avoid long-acting sedatives Respiratory: Acute hypoxemia Acute pulmonary edema secondary to CHF exacerbation forced diuresis wean o2 by nc for goal spo2 > 90% Cardiovascular: Acute coronary syndrome Acute NSTEMI Cardiogenic Shock Multiple episodes of ventricular fibrillation Ischemic cardiomyopathy, EF 30-35% Acute systolic heart failure exacerbation forced diuresis with lasix 40mg iv x 1. trend troponins trend lactates Cardiology consult: Dr. Bland 2d echo heparin drip ASA Renal: Chronic renal insufficiency, stage IV nephrology consultation at Cardiology request for pre-op optimization for cath would avoid any additional iv fluids Strict I/Os FEN/GI: Morbid Obesity Acute liver injury Lactic Acidosis Acute intravascular volume overload NPO pending possible cath ICU electrolyte protocol trend lactates daily CMP likely secondary to shock liver Heme/ID: Possible sepsis: present on admission Fever Leukocytosis patient history is suggestive of cardiogenic source of acute illness and lactic acidosis appears to be secondary to cardiogenic shock blood and urine cultures patient has a subjective history of anaphylaxis to vancomycin patient has had MRSA and e.coli healthcare associated infections in the past will broadly cover with zosyn and linezolid empirically until cultures are negative. daily CBC Endocrine: Diabetes -- SSI Prophylaxis: GI Prophylaxis pepcid DVT Prophylaxis -- SCDs heparin drip for ACS Lines: PIV Dispo: Admit to ICU. This patient remains critically ill with one or more organ systems which are or may become a threat to life. I have spent in excess of 65 minutes discontinuously in the care and management of this patient. This time is exclusive of procedures, and includes, but is not limited to, evaluation of the patient, review of the medical record, discussions with family, consultants, nursing staff, or respiratory therapy, and documentation in the medical record.
[2018-06-24] MEDS: Piperacil/Tazo 3.375 GM Premix 50 ML IV.SIG SCH (18:17)
--- NOTE | 2018-06-24 18:38 | MB ---
cc: Bucky Bland MD DATE: 06/24/2018 REASON FOR CONSULTATION: Multiple ventricular tachyarrhythmias, multiple AICD shocks, abnormal cardiac enzymes, unstable angina, congestive heart failure. HISTORY OF PRESENT ILLNESS: The patient is a 72-year-old white female with a history of paroxysmal atrial fibrillation, paroxysmal atrial flutter, moderately severe ischemic cardiomyopathy, severe chronic renal insufficiency, coronary artery disease, diabetes, hypertension, who presented to the hospital with a number of complaints including increasing shortness of breath, pedal edema, chest discomfort, AICD shocks. Yesterday evening, the patient believes she had about 6 AICD shocks and about 10 more today. Interrogation of her device has revealed multiple episodes of ventricular tachycardia and ventricular fibrillation necessitating shock therapy. In the last few days, she has noted increased shortness of breath from baseline. In the last couple of weeks, the patient has also noted increased pedal edema from baseline. Occasionally, she experiences paroxysmal nocturnal dyspnea. The patient denies syncope, near syncope, palpitations. She reports occasional overall mild lightheadedness. The patient has been compliant with her medications. At the present time, she is resting comfortably, denying any chest discomfort or shortness of breath. In the last 2 to 3 days, she has had intermittent episodes of left-sided parasternal chest discomfort described as a "pressure" never lasting more than a few minutes, associated with shortness of breath without nausea or diaphoresis. PAST MEDICAL HISTORY: 1. History of Bi[employer]ik AICD implant for severe ischemic cardiomyopathy 07/24/2009. 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 2. Paroxysmal atrial fibrillation, status post ablation 07/11/2014. Her atrial arrhythmia burden over the last 2 years has been very low. 3. Paroxysmal atrial flutter, status post ablation 07/11/2014. 4. History of urethral calculus. 5. Severe ischemic cardiomyopathy with her last echo 07/03/2015 showing ejection fraction of 35%. 6. Severe chronic renal insufficiency. 7. Coronary artery disease, status post stent of the proximal LAD in [place] 2001. Her last heart catheterization was 03/2009 showing minimal mid right coronary and minimal proximal LAD disease. 8. Diabetes. 9. Hyperlipidemia. 10. Hypertension. CARDIAC MEDICATIONS AT HOME: 1. Amiodarone 200 mg daily. 2. Aspirin 81 mg daily. 3. Carvedilol 6.25 mg b.i.d. 4. Furosemide 40 mg b.i.d. 5. Metolazone 5 mg every other day. 6. Simvastatin 20 mg at bedtime. 7. Potassium chloride 10 mEq daily. 8. Warfarin 3 mg daily. ALLERGIES: VANCOMYCIN. FAMILY HISTORY: Noncontributory. SOCIAL HISTORY: The patient is a former smoker. There is no history of alcohol abuse. REVIEW OF SYSTEMS: As in the history of present illness, otherwise negative or noncontributory. She also denies headache, abdominal pain, melena, dyspepsia, diarrhea, bright red blood per rectum, vomiting. PHYSICAL EXAMINATION: VITAL SIGNS: Her blood pressure 104/53 with a pulse of 62, respirations 24. GENERAL: She is a well-developed, well-nourished white female, in no acute distress. NECK: Jugular venous pressure is 8-9 cm water. Carotid pulses are 2+ bilaterally and without bruits. CHEST: Reveals clear lungs bernal anteriorly. CARDIAC: She has a regular rhythm and rate without S3, S4, or murmur. ABDOMEN: She has a soft, obese, nontender abdomen. Bowel sounds are present. There is no definite hepatosplenomegaly. EXTREMITIES: Reveals no clubbing or cyanosis. There is 1+ pretibial edema bilaterally as well as chronic venous stasis changes. LABORATORY DATA: Includes INR 1.5, potassium 4.3, BUN 38, creatinine 2.40. CK 474, troponin 1.73. WBC 32.9, hemoglobin 13.6, platelets 177. Chest x-ray shows cardiomegaly with increase in pulmonary vascularity and perihilar congestion. EKG from today at 10:29 a.m. shows probable sinus rhythm with possible ventricular pacing or nonspecific interventricular conduction delay, diffuse nonspecific T-wave abnormalities. IMPRESSION: Congestive heart failure exacerbation, unstable angina symptoms, ventricular tachycardia storm/ventricular fibrillation in a 72-year-old white female with a history of multiple medical problems including coronary artery disease, paroxysmal atrial arrhythmias, moderately severe ischemic cardiomyopathy with ejection fraction of 35%, severe chronic renal insufficiency, diabetes, hypertension. The patient has had increased symptoms recently suggestive of acute on chronic congestive heart failure. Her chest x-ray also suggests congestive heart failure. The patient's brain natriuretic peptide level was also elevated to 2627. In addition, the patient in the last 2-3 days, has had intermittent episodes of angina-like chest discomfort. Troponin levels are mildly abnormal, although in the setting of renal insufficiency. CK-MB percentages are negative for myocardial infarction. EKGs are nondiagnostic. Interrogation of her AICD reveals multiple episodes of ventricular tachycardia and ventricular fibrillation rescued successfully with shocks. I suspect myocardial ischemia/infarction is precipitating her ventricular tachyarrhythmias. Ideally, she needs coronary angiography to reassess her coronary status. She does understand the potential risk of dye induced renal failure given her history of diabetes and severe chronic renal insufficiency. At this time, she is angina free. With initiation of intravenous amiodarone, her tachyarrhythmias have subsided so far. RECOMMENDATIONS: 1. Continue intravenous amiodarone. 2. Continue intravenous heparin. 3. Daily aspirin and resume her beta augusto as blood pressures tolerate. 4. Consult Dr. Lockwood from nephrology in anticipation of a cardiac catheterization sometime in the next 48 hours. 5. Check a 2D echo to reassess left ventricular function. Bucky Bland MD GHR/ct , 05:05 PM , 05:19 PM MTDD
[2018-06-24 19:15] LABS: Amorphous Sediment,Urine Few /hpf; Bacteria,Urine Moderate /hpf; Bilirubin,Urine Negative (Negative); Clarity,Urine Cloudy (Clear); Color,Urine Amber (Yellw/Straw); Glucose,Urine (UA) Negative (Negative); Leukocyte Esterase,Urine Negative (Negative); Nitrite,Urine Negative (Negative); Specific Gravity,Urine 1.025 (1.002-1.035); Squamous Epithelial Cell,Urine 2 /hpf (0-5)
[2018-06-24 22:06] LABS: Albumin 2.8 g/dL (3.4-5.0); Anion Gap 10 meq/L (5-15); Aspartate Aminotransferase 43 U/L (15-37); Blood Urea Nitrogen 46 mg/dL (7-18); Calcium 8.3 mg/dL (8.5-10.1); Carbon Dioxide 24.8 meq/L (21.0-32.0); Chloride 107 meq/L (98-107); Glomerular Filtration Rate 20 mL/min (>89); Glucose,Random 171 mg/dL (74-106); Magnesium 1.9 mg/dL (1.5-2.5); Potassium 4.4 meq/L (3.5-5.1); Sodium 142 meq/L (136-145)
[2018-06-24 22:07] LABS: Alanine Aminotransferase 39 U/L (10-53); Phosphorus 3.4 mg/dL (2.5-4.9)
[2018-06-24 22:11] LABS: Creatine Kinase 407 U/L (26-192); Total Protein 6.6 g/dL (6.4-8.2)
[2018-06-24] MEDS: Famotidine PF Inj 20 MG/2 ML Vial IV.PUSH SCH (22:30)
[2018-06-24 23:42] LABS: CKMB Percent 0.3 % (0.0-4.0); Creatine Kinase MB 1.4 ng/mL (0.5-3.6)
[2018-06-25 00:11] LABS: Alkaline Phosphatase 93 U/L (45-117)
[2018-06-25] MEDS: Piperacil/Tazo 3.375 GM Premix 50 ML IV.SIG SCH ×4 (02:10→21:17)
[2018-06-25] MEDS ORDERED: Chlorhexidine Gluconate 2% 1 Pack (2 Cloths) TOPICAL PRN (04:00)
[2018-06-25 04:08] LABS: Hematocrit 35.8 % (35.0-46.0); Hemoglobin 11.4 gm/dL (11.6-15.3); Mean Corpuscular Hemoglobin 30.7 pg (27.0-34.0); Mean Corpuscular Volume 96.1 fL (80.0-100.0); Mean Platelet Volume 9.7 fL (7.0-11.0); Platelet Count 129 th/mm3 (150-450); Red Blood Count 3.73 mil/mm3 (4.00-5.30); Red Cell Distribution Width 15.7 % (11.6-17.2)
[2018-06-25 04:21] LABS: Activated Partial Thrombo Time 80.1 sec (24.3-30.1); INR 1.5 Ratio; Prothrombin Time 15.4 sec (9.8-11.6)
[2018-06-25] MEDS: Chlorhexidine Gluconate 2% 1 Pack (2 Cloths) TOPICAL SCH (06:34)
[2018-06-25 07:45] LABS: Calcium 8.4 mg/dL (8.5-10.1); Carbon Dioxide 24.1 meq/L (21.0-32.0); Potassium 4.4 meq/L (3.5-5.1)
[2018-06-25] MEDS: Famotidine PF Inj 20 MG/2 ML Vial IV.PUSH SCH ×2 (09:25→21:16)
--- NOTE | 2018-06-25 10:21 | P.PNCC ---
Subjective Subjective Remarks/Hospital Course: Hospital Course: This is a 72yF with history of ischemic cardiomyopathy and an EF 30-35% who presents to the ER after her ICD started shocking her. She states she has had about 3 days of substernal chest pain which is associated with nausea, shortness of breath, dyspnea on exertion. she denies vomiting, diarrhea, constipation or abdominal pain. she endorses a few chills, but denies fever, cough, runny nose, sick contacts. In the ER, the AICD fired a number of times. in the ER additionally she was febrile to 38.1C. She has a wbc 32k with 93% neutrophil predominance and 13% bands. her lactate is 5, t.bili 1.5, Cr 2.4 which is at her baseline of 2.4 from prior documented laboratory data this year. AST/ALT elevated at 43/36. Trop 1.67 and trended to 1.73. BNP 2627. Remainder of the ROS is negative and she denies any changes to her medical history up until the last 3 days. I interrogated her [employer] AICD: she had 13 episodes of VF with 10 AICD defibrillations. Upon review of these, they appear to be very short runs of VT which quickly transition to VF before successful cardioversion by AICD. I have spoken with Dr. Bland her personal geological technician who is manager solution today and he has seen her and evaluated her and recommends Nephrology consultation for pre-op optimization prior to left heart catheterization. Subjective: 06/25: denies complaints. chest pain free. no episodes of VF overnight. amio still at 0.5 mg/hr. awaiting Dr. Lockwood's recommendations. Objective Vital Signs / I&O: Vital Signs 06/24/18 10:30 06/24/18 10:34 06/24/18 10:40 Temperature Pulse Rate 69 65 62 Respiratory Rate 18 20 18 Blood Pressure 127/76 145/63 H 130/59 L Pulse Oximetry 95 99 06/24/18 10:46 06/24/18 10:47 06/24/18 10:55 Temperature Pulse Rate 79 102 H 72 Respiratory Rate 18 20 18 Blood Pressure 128/61 128/61 125/68 Pulse Oximetry 95 98 94 L 06/24/18 10:56 06/24/18 11:10 08/25/18 11:25 Temperature Pulse Rate 77 70 62 Respiratory Rate 18 18 18 Blood Pressure 125/68 121/64 123/62 Pulse Oximetry 93 L 96 06/24/18 11:45 06/24/18 11:55 06/24/18 12:22 Temperature 36.8 C Pulse Rate 60 60 98 H Respiratory Rate 20 19 18 Blood Pressure 119/62 125/61 Pulse Oximetry 96 95 94 L 06/24/18 12:37 06/24/18 14:22 06/24/18 14:44 Temperature Pulse Rate 100 H 60 Respiratory Rate 22 19 Blood Pressure 122/81 100/61 Pulse Oximetry 93 L 97 98 06/24/18 16:00 06/24/18 16:45 06/24/18 19:00 Temperature 36.8 C Pulse Rate 59 L 62 Respiratory Rate 24 Blood Pressure 104/53 L Pulse Oximetry 97 99 06/24/18 20:00 06/24/18 21:45 06/25/18 00:00 Temperature 36.4 C 36.7 C Pulse Rate 60 60 Respiratory Rate 20 16 Blood Pressure 96/63 L 103/64 Pulse Oximetry 98 98 98 06/25/18 04:00 06/25/18 07:00 06/25/18 07:44 Temperature 36.8 C 36.6 C Pulse Rate 60 60 Respiratory Rate 16 22 Blood Pressure 107/62 118/67 Pulse Oximetry 99 98 Intake & Output 06/24/18 06/25/18 06/25/18 18:59 06:59 18:59 Intake Total 750 / 750 350 / 350 550 / 550 Output Total 70 / 70 600 / 600 Balance 680 / 680 -250 / -250 550 / 550 Weight 138 kg 146 kg Intake: IV 750 / 750 350 / 350 550 / 550 Cordarone Inj 450 MG In D5W Inj 250 / 250 250 / 250 241 ML @ 1 MG/MIN 33.33 mls/hr IV.CONT TITRATE PRN Rx#: [id number] Cordarone Inj 150 MG In D5W Inj 100 / 100 97 ML @ 600 mls/hr IV.SIG ONCE ONE Rx#:[id number] Zyvox 600 mg Premix 300 ML @ 300 / 300 300 / 300 300 mls/hr IV.SIG Q12H [facility] Rx#: [id number] Magnesium Sulfate 1 gm/D5W 100 100 / 100 ml Premix 100 ML @ 50 mls/hr IV .SIG ONCE ONE Rx#:[id number] Zosyn 3.375 GM Premix 50 ML @ 100 / 100 50 / 50 100 mls/hr IV.SIG Q8H [facility] Rx#: [id number] NS Inj 500 ML @ Wide Open IV. 200 / 200 SIG ONCE ONE Rx#:[id number] Oral 0 / 0 0 / 0 Output: Urine 70 / 70 600 / 600 Other: Date of Last Bowel Movement 06/23/18 06/23/18 06/23/18 # Bowel Movements 0 0 Result Diagrams: 06/25/18 03:28 06/25/18 03:28 Objective Remarks: gen: obese female, lying in bed, no distress this AM. heent: nc. at. perrl. mmm. neck: +JVD. trachea midline. chest: equal chest rise. nc o2. unlabored. cv: normal rate, regular rhythm. sinus. abd: obese, soft, nontender, nondistended. no guarding. extr: warm, well perfused. bilateral lower extremities with venous stasis changes. distal pulses 2+. neuro: RASS 0. CAM -. GCS 15. follows commands. no focal deficits. Assessment and Plan - Assessment and Plan Plan: Assessment: 72yF with ischemic cardiomyopathy and a last known EF of ~30-35% who presents with symptoms concerning for acute coronary syndrome and 13 episodes of ventricular fibrillation s/p 10 AICD defibrillations. continue heparin, aspirin, trending troponins. now out of shock. continue gentle forced diuresis. Plan by systems: Neurologic: avoid long-acting sedatives Respiratory: Acute hypoxemia- resolving. Acute pulmonary edema secondary to CHF exacerbation forced diuresis wean o2 by nc for goal spo2 > 90% Cardiovascular: Acute coronary syndrome Acute NSTEMI Cardiogenic Shock- resolved Multiple episodes of ventricular fibrillation Ischemic cardiomyopathy, EF 30-35% Acute systolic heart failure exacerbation forced diuresis with lasix 80mg iv BID. trend troponins lactate cleared. Cardiology consult: Dr. Bland 2d echo heparin drip ASA Renal: Chronic renal insufficiency, stage IV nephrology consultation at Cardiology request for pre-op optimization for cath would avoid any additional iv fluids Strict I/Os FEN/GI: Morbid Obesity Acute liver injury- resolving. Lactic Acidosis- resolved Acute intravascular volume overload NPO pending possible cath ICU electrolyte protocol trend lactates daily CMP likely secondary to shock liver Heme/ID: Possible sepsis: present on admission Fever Leukocytosis patient history is suggestive of cardiogenic source of acute illness and lactic acidosis appears to be secondary to cardiogenic shock blood and urine cultures patient has a subjective history of anaphylaxis to vancomycin patient has had MRSA and e.coli healthcare associated infections in the past will broadly cover with zosyn and linezolid empirically daily CBC Endocrine: Diabetes -- SSI Prophylaxis: GI Prophylaxis pepcid DVT Prophylaxis -- SCDs heparin drip for ACS Lines: PIV Dispo: if cleared by cardiology, can go to step-down unit. must be on telemetry for recurrent VF.
--- NOTE | 2018-06-25 11:49 | P.PNCA ---
Subjective Interval history: Denies CP, dyspnea, palpitations, dizziness, nausea, PND. Physical Exam Vital signs: Vital Signs 06/24/18 11:45 06/24/18 11:55 06/24/18 12:22 Temperature 98.3 F Pulse Rate 60 60 98 H Respiratory Rate 20 19 18 Blood Pressure 119/62 125/61 Pulse Oximetry 96 95 94 L 06/24/18 12:37 06/24/18 14:22 06/24/18 14:44 Temperature Pulse Rate 100 H 60 Respiratory Rate 22 19 Blood Pressure 122/81 100/61 Pulse Oximetry 93 L 97 98 06/24/18 16:00 06/24/18 16:45 06/24/18 19:00 Temperature 98.2 F Pulse Rate 59 L 62 Respiratory Rate 24 Blood Pressure 104/53 L Pulse Oximetry 97 99 06/24/18 20:00 06/24/18 21:45 06/25/18 00:00 Temperature 97.6 F 98.0 F Pulse Rate 60 60 Respiratory Rate 20 16 Blood Pressure 96/63 L 103/64 Pulse Oximetry 98 98 98 06/25/18 04:00 06/25/18 07:00 06/25/18 07:44 Temperature 98.2 F 97.8 F Pulse Rate 60 60 Respiratory Rate 16 22 Blood Pressure 107/62 118/67 Pulse Oximetry 99 98 06/25/18 11:00 Temperature 98.0 F Pulse Rate 61 Respiratory Rate 20 Blood Pressure 112/67 Pulse Oximetry 96 Intake & Output 06/24/18 06/25/18 06/25/18 18:59 06:59 18:59 Intake Total 750 / 750 350 / 350 600 / 600 Output Total 70 / 70 600 / 600 Balance 680 / 680 -250 / -250 600 / 600 Weight 138 kg 146 kg Intake: IV 750 / 750 350 / 350 600 / 600 Cordarone Inj 450 MG In D5W Inj 250 / 250 250 / 250 241 ML @ 1 MG/MIN 33.33 mls/hr IV.CONT TITRATE PRN Rx#: [id number] Cordarone Inj 150 MG In D5W Inj 100 / 100 97 ML @ 600 mls/hr IV.SIG ONCE ONE Rx#:[id number] Zyvox 600 mg Premix 300 ML @ 300 / 300 300 / 300 300 mls/hr IV.SIG Q12H [facility] Rx#: [id number] Magnesium Sulfate 1 gm/D5W 100 100 / 100 ml Premix 100 ML @ 50 mls/hr IV .SIG ONCE ONE Rx#:[id number] Zosyn 3.375 GM Premix 50 ML @ 100 / 100 50 / 50 50 / 50 100 mls/hr IV.SIG Q8H [facility] Rx#: [id number] NS Inj 500 ML @ Wide Open IV. 200 / 200 SIG ONCE ONE Rx#:[id number] Oral 0 / 0 0 / 0 Output: Urine 70 / 70 600 / 600 Other: Date of Last Bowel Movement 06/23/18 06/23/18 06/23/18 # Bowel Movements 0 0 - Constitutional no acute distress - Routine Neck Exam Absent: JVD - Routine Respiratory Exam Comments: Clear lungs anteriorly. - Routine Cardiovascular Exam Present: RRR, S1, S2. Absent: murmur, gallop - Routine Abdominal Exam Present: soft, normoactive bowel sounds. Absent: tenderness, organomegaly - Routine Extremities Exam Present: edema. Absent: cyanosis, clubbing Comments: 1+ pretibial edema; chronic venous stasis changes Assessment and Plan - Assessment (1) Ventricular fibrillation Code(s): I49.01 - Ventricular fibrillation Status: Acute Plan: Stable overnight on IV Amiodarone. Suspect precipitating factor is myocardial ischemia. For cath in am. Continue IV Amiodarone for now. (2) Coronary artery disease Code(s): I25.10 - Atherosclerotic heart disease of [place] coronary artery without angina pectoris Status: Chronic Plan: Recent mild CP's though consistent with angina in unstable pattern, possibly precipitating factor for her numerous VF episodes. For cath tomorrow am. Will try to minimize dye load and use DyeVert device for contrast injections. Continue aspirin, heparin drip, beta augusto. (3) Ischemic cardiomyopathy Code(s): I25.5 - Ischemic cardiomyopathy Status: Chronic Plan: Symptomatically better since admission. Continue beta augusto, IV furosemide diuresis, monitor renal indices. Echo pending. EF in 2015 was 35%. (4) Paroxysmal atrial fibrillation Code(s): I48.0 - Paroxysmal atrial fibrillation Status: Chronic Plan: History of ablation. No significant atrial arrhythmia burden past couple years , based on ICD checks. Hold warfarin in anticipation of cath. - Plan Code Status: full code Discussed Condition With: patient (2) Coronary artery disease Qualifiers: Coronary Disease-Associated Artery/Lesion type: [place] artery [place] vs. transplanted heart: [place] heart Associated angina: with unstable angina Qualified Code(s): I25.110 - Atherosclerotic heart disease of [place] coronary artery with unstable angina pectoris
[2018-06-25] MEDS ORDERED: fentaNYL Citrate Inj 100 MCG/2 ML Ampul IV.PUSH SCH (12:00)
--- NOTE | 2018-06-25 13:17 | ECG ---
Date Performed: 06/24/2018 Time Performed: 10:48:29 PTAGE: 72 years EKG: Likely Atrial Pacing Demand Ventricular Pacing POSSIBLE RIGHT VENTRICULAR HYPERTROPHY ANTER OSEPTAL MYOCARDIAL INFARCTION ABNORMAL ECG PREVIOUS TRACING : 06/24/2018 10.29 Compared to previous tracing, occasional ventricular pacing is seen DOCTOR: Jalen Joya Interpretating Date/Time 06/25/2018 13:13:35
--- NOTE | 2018-06-25 13:17 | ECG ---
Date Performed: 06/24/2018 Time Performed: 10:29:34 PTAGE: 72 years EKG: Likely Atrial Pacing MARKED RIGHT AXIS DEVIATION INTRAVENTRICULAR CONDUCTION DELAY ANTEROSE PTAL MYOCARDIAL INFARCTION ABNORMAL ECG PREVIOUS TRACING : 05/18/2017 18.02 Since the previous tracing, no significant change noted DOCTOR: Jalen Joya Interpretating Date/Time 06/25/2018 13:12:11
--- NOTE | 2018-06-25 13:17 | ECG ---
Date Performed: 06/24/2018 Time Performed: 10:49:51 PTAGE: 72 years EKG: Atrial Pacing MARKED RIGHT AXIS DEVIATION INTRAVENTRICULAR CONDUCTION DELAY ABNORMAL ECG PREVIOUS TRACING : 06/24/2018 10.29 Compared to previous tracing, ventricular pacing is not see n. Abnormalities may be due to intermittent ventricular pacing. DOCTOR: Jalen Joya Interpretating Date/Time 06/25/2018 13:15:33
--- NOTE | 2018-06-25 13:57 | P.CONNP ---
History of Present Illness Service: NEPHROLOGY Consult date: 06/25/18 Requesting Physician: Desmond Mccabe Reason for Consult: Chronic kidney disease stage IV Primary Care Provider: Phillip Arevalo MD Family Provider: Phillip Arevalo MD Chief Complaint: chest pain History of Present Illness: Patient is a 72-year-old white female who follows with me in the clinic she has a GFR of 25 on 01/24/2018 in the office and has underlying diabetes, chronic kidney disease, coronary artery disease, defibrillator implant, she was admitted to due to defibrillator discharging this on several occasions and she is suspected to have coronary artery blockage, plan is to do heart catheterization in the morning. Patient is awake and stable, her GFR has dropped to 20. Review of Systems Constitutional: Reports lack of energy Eyes: Reports blurry vision Cardiovascular: Reports chest pain, Reports generalized swelling, Reports leg swelling, Reports shortness of breath Respiratory: Reports shortness of breath Gastrointestinal: Reports heartburn, Reports nausea Genitourinary: Reports urinary urgency Musculoskeletal: Reports back pain, Reports joint pain, Reports muscle weakness Neurologic: Reports weakness PMFSH - History History Provided By: Patient - Medical History Medical History: Medical History (Last Updated 06/25/18 @ 09:52 by Carmen Hudson) Diabetes HTN (hypertension) Hx of cardiac pacemaker Renal insufficiency Atrial fibrillation CHF (congestive heart failure) - Surgical History Surgical History: Surgical History (Last Reviewed 06/24/18 @ 10:58 by Polina Limon) AICD (automatic cardioverter/defibrillator) present - Tobacco History Second Hand Smoke Exposure: Yes Tobacco Use In Past 30 Days: No (pt has not smoked for 40 years) Smoking Status: Former smoker Tobacco Type: Cigarettes - Alcohol History How Often Do You Have a Drink Containing Alcohol: Never - Substance Use History Substance History: No History of Abuse - Travel History Recent Travel in the [place] Within the Last 8 Weeks: No Recent Travel Out of the Country Within the Last 8 Weeks: No - Immunization History Tetanus Immunization: Unsure Hx Influenza Vaccine This Season: Unable to Assess Medications and Allergies Active Medications: Active Medications Albuterol (Duoneb Neb (Prn)) 1 ampul NEB Q2HR NEB PRN PRN Reason: WHEEZING Aspirin (Ecotrin) 81 mg PO DAILY [facility] Last Admin: 06/25/18 09:25 Dose: 81 mg Carvedilol (Coreg) 3.125 mg PO BID [facility] Last Admin: 06/24/18 22:31 Dose: Not Given Chlorhexidine Gluconate (Chlorhexidine 2% Cloth) 3 pack TOPICAL DAILY@0400 [facility] Stop: 06/30/18 03:59 Last Admin: 06/25/18 06:34 Dose: Not Given Chlorhexidine Gluconate (Chlorhexidine 2% Cloth) 3 pack TOPICAL DAILY@0400 PRN PRN Reason: Extra cloth needed Stop: 06/30/18 03:59 Diphenhydramine HCl (Benadryl) 50 mg PO 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 CONTROL ENGINEER [facility] Stop: 06/29/18 11:59 Famotidine (Pepcid Pf Inj) 10 mg IV.PUSH Q12HR [facility] Last Admin: 06/25/18 09:25 Dose: 10 mg Fentanyl Citrate (Fentanyl Inj) 50 mcg IV.PUSH [employer]IDEO [employer] ENGINEER [facility] Stop: 06/29/18 11:59 Furosemide (Lasix Inj) 80 mg IV.PUSH BID [facility] Last Admin: 06/25/18 10:56 Dose: 80 mg Amiodarone HCl 450 mg/ (Dextrose) 250 mls @ 33.33 mls/hr IV.CONT TITRATE PRN; Protocol PRN Reason: Per Protocol Last Admin: 06/25/18 10:12 Dose: 0.5 mg/min, 16.66 mls/hr Heparin Sodium/Dextrose (Heparin/D5w 25,000 U/250 Ml) 25,000 unit in 250 mls @ 0 mls/hr IV.CONT TITRATE PRN; Protocol PRN Reason: Per Protocol Last Admin: 06/24/18 16:37 Dose: 1,000 units/hr, 10 mls/hr Piperacillin/Tazobactam/Dextrose (Zosyn 3.375 Gm Premix) 50 mls @ 100 mls/hr IV.SIG Q8H [facility] Last Infusion: 06/25/18 09:55 Dose: Infused Linezolid (Zyvox 600 Mg Premix) 300 mls @ 300 mls/hr IV.SIG Q12H [facility] Last Infusion: 06/25/18 07:35 Dose: Infused Sodium Chloride (Ns Inj) 1,000 mls @ 75 mls/hr IV.CONT .[id number] [facility] Midazolam HCl (Versed Inj) 1 mg IV.PUSH [employer] [facility] Stop: 06/29/18 11:59 Ondansetron HCl (Zofran Inj) 4 mg IV.PUSH Q6H PRN PRN Reason: NAUSEA OR VOMITING Sodium Chloride (Ns Flush) 2 ml IV.FLUSH PRN PRN PRN Reason: FLUSH AFTER USING IV ACCESS Sodium Chloride (Ns Flush) 2 ml IV.FLUSH BID [facility] Last Admin: 06/25/18 09:26 Dose: 2 ml Allergies Allergy/AdvReac Type Severity Reaction Status Date / Time vancomycin Allergy Severe ANAPHYLAXIS Verified 06/24/18 10:09 Home Medications Medication Instructions Recorded Confirmed Type allopurinol 100 mg PO DAILY 06/25/18 06/25/18 History amiodarone 200 mg PO DAILY 06/25/18 06/25/18 History atorvastatin 40 mg PO DAILY 06/25/18 06/25/18 History calcitriol DAILY 06/25/18 History carvedilol BID 06/25/18 History ergocalciferol (vitamin D2) 50,000 unit PO QTUTH 06/25/18 06/25/18 History [Vitamin D2] furosemide 40 mg PO DAILY 06/25/18 06/25/18 History losartan 50 mg PO DAILY 06/25/18 06/25/18 History metolazone 5 mg PO DAILY 06/25/18 06/25/18 History potassium chloride 10 meq PO DAILY 06/25/18 06/25/18 History warfarin 2 mg PO DAILY 06/25/18 06/25/18 History Exam Vital signs: Vital Signs 06/24/18 14:22 06/24/18 14:44 06/24/18 16:00 Temperature 98.2 F Pulse Rate 60 59 L Respiratory Rate 19 24 Blood Pressure 100/61 104/53 L Pulse Oximetry 97 98 97 06/24/18 16:45 06/24/18 19:00 06/24/18 20:00 Temperature 97.6 F Pulse Rate 62 60 Respiratory Rate 20 Blood Pressure 96/63 L Pulse Oximetry 99 98 06/24/18 21:45 06/25/18 00:00 06/25/18 04:00 Temperature 98.0 F 98.2 F Pulse Rate 60 60 Respiratory Rate 16 16 Blood Pressure 103/64 107/62 Pulse Oximetry 98 98 99 06/25/18 07:00 06/25/18 07:44 06/25/18 11:00 Temperature 97.8 F 98.0 F Pulse Rate 60 61 Respiratory Rate 22 20 Blood Pressure 118/67 112/67 Pulse Oximetry 98 96 Intake & Output 06/24/18 06/25/18 06/25/18 18:59 06:59 18:59 Intake Total 750 / 750 350 / 350 600 / 600 Output Total 70 / 70 600 / 600 Balance 680 / 680 -250 / -250 600 / 600 Weight 138 kg 146 kg Intake: IV 750 / 750 350 / 350 600 / 600 Cordarone Inj 450 MG In D5W Inj 250 / 250 250 / 250 241 ML @ 1 MG/MIN 33.33 mls/hr IV.CONT TITRATE PRN Rx#: [id number] Cordarone Inj 150 MG In D5W Inj 100 / 100 97 ML @ 600 mls/hr IV.SIG ONCE ONE Rx#:[id number] Zyvox 600 mg Premix 300 ML @ 300 / 300 300 / 300 300 mls/hr IV.SIG Q12H [facility] Rx#: [id number] Magnesium Sulfate 1 gm/D5W 100 100 / 100 ml Premix 100 ML @ 50 mls/hr IV .SIG ONCE ONE Rx#:[id number] Zosyn 3.375 GM Premix 50 ML @ 100 / 100 50 / 50 50 / 50 100 mls/hr IV.SIG Q8H [facility] Rx#: [id number] NS Inj 500 ML @ Wide Open IV. 200 / 200 SIG ONCE ONE Rx#:[id number] Oral 0 / 0 0 / 0 Output: Urine 70 / 70 600 / 600 Other: Date of Last Bowel Movement 06/23/18 06/23/18 06/23/18 # Bowel Movements 0 0 - Constitutional no acute distress - Routine HEENT Exam Head: Present: normocephalic Eye: Present: EOMI, PERRL - Routine Neck Exam Present: supple - Routine Respiratory Exam Present: decreased breath sounds - Routine Cardiovascular Exam Present: irregular rhythm - Routine Abdominal Exam Present: soft, normoactive bowel sounds - Routine Extremities Exam Present: edema - Routine Skin Exam Present: erythema - Routine Neurological Exam Present: alert Results - Lab Results 06/25/18 03:28 06/25/18 03:28 Most recent lab results Calcium 8.4 mg/dL (8.5-10.1) L 06/25/18 03:28 Phosphorus 3.4 mg/dL (2.5-4.9) 06/24/18 21:35 Magnesium 1.9 mg/dL (1.5-2.5) 06/24/18 21:35 Assessment and Plan - Assessment (1) CKD (chronic kidney disease) stage 4, GFR 15-29 ml/min Code(s): N18.4 - Chronic kidney disease, stage 4 (severe) Status: Acute (2) Coronary artery disease Code(s): I25.10 - Atherosclerotic heart disease of [place] coronary artery without angina pectoris Status: Chronic (3) Ventricular fibrillation Code(s): I49.01 - Ventricular fibrillation Status: Acute (4) Ischemic cardiomyopathy Code(s): I25.5 - Ischemic cardiomyopathy Status: Chronic - Plan High risk for heart catheterization, risk for ARF, progression towards ESRD discussed, she is aware there is a possibility of dialysis, IVF will be initiated prior to heart catheterization Patient was told about hemodialysis in detail possibility of line placement, infection, bleeding, cramps, low blood pressure explained to her substernal procedure. Patient will continue to be on diuretic and IV fluids will be started. (2) Coronary artery disease Qualifiers: Coronary Disease-Associated Artery/Lesion type: [place] artery [place] vs. transplanted heart: [place] heart Associated angina: with unstable angina Qualified Code(s): I25.110 - Atherosclerotic heart disease of [place] coronary artery with unstable angina pectoris
--- NOTE | 2018-06-25 15:24 | ECHRPT ---
Indication: CARDIOMYOAPTHY CONCLUSIONS Mildly dilated left ventricle. Wall thickness is normal. The left ventricular systolic function is severely reduced with an estimated ejection fraction less than 20%. There is global left ventricular dysfunction. The right ventricle is moderately dilated. The right ventricular systoilc function is severely decreased. The right atrial size is udgpdrqt-dp-[id number] dilated. Btjy-ba-cbvuqcyb mitral valve regurgitation. There is moderate to severe tricuspid valve regurgitation. The estimated pulmonary arterial pressure is 74.6 mmHg. There is estimated severe pulmonary hypertension present ( > 70 mmHg). Trivial pulmonary valve regurgitation. BP: / HR: Rhythm: Sinus MEASUREMENTS (Male / Female) Normal Values Technical Quality:Fair 2D ECHO LV Diastolic Diameter PLAX 6.1 cm 4.2 - 5.9 / 3.9 - 5.3 cm LV Systolic Diameter PLAX 5.6 cm IVS Diastolic Thickness 0.8 cm 0.6 - 1.0 / 0.6 - 0.9 cm LVPW Diastolic Thickness 0.8 cm 0.6 - 1.0 / 0.6 - 0.9 cm LV Relative Wall Thickness 0.3 RV Internal Dim ED PLAX 3.8 cm LVOT Diameter 2.2 cm Aortic Root Diameter 3.0 cm LA Systolic Diameter LX 4.6 cm 3.0 - 4.0 / 2.7 - 3.8 cm M-MODE AV Cusp Separation MM 2.1 cm DOPPLER AV Peak Velocity 120.0 cm/s AV Peak Gradient 5.8 mmHg AV Mean Gradient 3.0 mmHg AV Velocity Time Integral 19.7 cm LVOT Peak Velocity 70.7 cm/s LVOT Peak Gradient 2.0 mmHg LVOT Velocity Time Integral 11.7 cm AV Area Cont Eq vti 2.3 cm AV Area Cont Eq pk 2.2 cm Mitral E Point Velocity 85.9 cm/s Mitral A Point Velocity 22.2 cm/s Mitral E to A Ratio 3.9 LV E' Lateral Velocity 4.8 cm/s Mitral E to LV E' Lateral Ratio 18.0 LV E' Septal Velocity 6.0 cm/s Mitral E to LV E' Septal Ratio 14.2 TR Peak Velocity 386.0 cm/s TR Peak Gradient 59.6 mmHg Right Atrial Pressure 15.0 mmHg Pulmonary Artery Systolic Pressu 74.6 mmHg Right Ventricular Systolic Press 74.6 mmHg PV Peak Velocity 51.1 cm/s PV Peak Gradient 1.0 mmHg FINDINGS LEFT VENTRICLE Mildly dilated left ventricle. Wall thickness is normal. The left ventricular systolic function is severely reduced with an estimated ejection fraction less than 20%. There is global left ventricular dysfunction. RIGHT VENTRICLE The right ventricle is moderately dilated. The right ventricular systoilc function is severely decreased. LEFT ATRIUM The left atrial size is normal. RIGHT ATRIUM The right atrial size is fumcrbot-lg-mcqrwoas dilated. ATRIAL SEPTUM No atrial level shunt is demonstrated by color flow Doppler interrogation. AORTA The aortic root and proximal ascending aorta are normal in size on limited imaging. MITRAL VALVE Atdv-ft-hsynzxib mitral valve regurgitation. AORTIC VALVE Trileaflet aortic valve. No aortic valve stenosis or regurgitation. TRICUSPID VALVE There is moderate to severe tricuspid valve regurgitation. The estimated pulmonary arterial pressure is 74.6 mmHg. There is estimated severe pulmonary hypertension present ( > 70 mmHg). PULMONARY VALVE Trivial pulmonary valve regurgitation. VESSELS The inferior vena cava is normal in size. PERICARDIUM No pericardial effusion. Jalen Joya MD (Electronically Signed) Final Date:25 June 2018 15:23
[2018-06-26] MEDS: Sod Chloride 0.9% Inj 1,000 ML IV.CONT SCH ×2 (03:09→18:47)
[2018-06-26] MEDS: Piperacil/Tazo 3.375 GM Premix 50 ML IV.SIG SCH ×4 (03:10→22:54)
[2018-06-26] MEDS: Chlorhexidine Gluconate 2% 1 Pack (2 Cloths) TOPICAL SCH (05:41)
[2018-06-26 05:58] LABS: Hematocrit 33.4 % (35.0-46.0); Hemoglobin 10.8 gm/dL (11.6-15.3); Mean Corpuscular HGB Conc 32.3 % (32.0-36.0); Mean Corpuscular Hemoglobin 30.9 pg (27.0-34.0); Mean Corpuscular Volume 95.6 fL (80.0-100.0); Mean Platelet Volume 9.8 fL (7.0-11.0); Platelet Count 122 th/mm3 (150-450); Red Blood Count 3.49 mil/mm3 (4.00-5.30); Red Cell Distribution Width 15.7 % (11.6-17.2); White Blood Count 11.7 th/mm3 (4.0-11.0)
[2018-06-26 06:08] LABS: Activated Partial Thrombo Time 54.8 sec (24.3-30.1); INR 1.7 Ratio; Prothrombin Time 17.4 sec (9.8-11.6)
[2018-06-26 06:33] LABS: Alanine Aminotransferase 34 U/L (10-53); Albumin 2.5 g/dL (3.4-5.0); Anion Gap 11 meq/L (5-15); Aspartate Aminotransferase 22 U/L (15-37); Blood Urea Nitrogen 50 mg/dL (7-18); Calcium 8.5 mg/dL (8.5-10.1); Carbon Dioxide 28.1 meq/L (21.0-32.0); Chloride 102 meq/L (98-107); Glomerular Filtration Rate 19 mL/min (>89); Glucose,Random 158 mg/dL (74-106); Phosphorus 3.8 mg/dL (2.5-4.9); Potassium 3.8 meq/L (3.5-5.1); Sodium 141 meq/L (136-145)
[2018-06-26 06:35] LABS: Alkaline Phosphatase 77 U/L (45-117); Total Protein 6.7 g/dL (6.4-8.2)
[2018-06-26] MEDS ORDERED: fentaNYL Citrate Inj 100 MCG/2 ML Ampul ONE (07:27)
[2018-06-26] MEDS ORDERED: Heparin/NS PF Inj 1,500 ML ONE (07:27)
--- NOTE | 2018-06-26 07:58 | CATHPROC ---
[facility] HIS Report Study Information Study Number Admission Scheduled Start Study Start [id number] Jun 24 2018 11:47AM 06/25/2018 Jun 26 2018 7:30AM [place] [facility] Cardiac Catheterization Admit Source Facility Department Other [facility] - Machine Operator Assistant Physician and Clinical Staff Initial Bucky Valdez Clerical Receptionist Valentin Umanzor RN Clerical Receptionist Stefany Dewitt RN Recorder Paula Jerome,RT(R) Scrub Onesimo Arellano RCIS(BS) Procedures Performed Procedure Location (Site) Vessel Name Coronary Angiograms LCA Left Coronary Coronary Angiograms RCA Right Coronary L Heart Cath Wire insertion Fem Art (right) Femoral Art Equipment Time Pediatric Lpn Description Size Mfg Part Number Used/Scraped TRANSDUCER, TRUWAVE [id number] 07:38 GATICA ACKERMAN * Used W/STOCKCOCK *[id number] 07:51 [employer] VASCADE, FR6 CLOSURE SYSTEM FR 6\7 Used *[id number] 07:52 [employer] VASCADE, FR6 CLOSURE SYSTEM FR 6\7 Used *[id number] *[id number] [id number] *[id number] *[id number] [id number] *[id number] 534-650S *[id number] 534-650S *[id number] 07:38 [employer] BLANKET,WARM AIR CCL * Used *[id number] 07:38 [employer] PACK, CCL CUSTOM * Used *[id number] 07:38 MEDLINE PACER PEN, SKIN DUAL W/ RULER * Used *[id number] 07:38 [employer] MEDICAL SHEATH, FR6.5 PRELUDE 11CM FR 6.5 038ACT Used *[id number] 07:38 [employer] MEDICAL WIRE, 3MMJ .035 180CM 180CM Used *[id number] 07:38 NAMIC MANIFOLD, 4 PORT * Used *[id number] 07:38 [employer] OMNIPAQUE, 350 MG, 150ML 150ML [id number] Used 07:38 [employer] OMNIPAQUE, 350 MG, 150ML 150ML [id number] Used DYEVERT, CONTRAST HVOFF-RRS 07:45 [employer] NG Used MODULATION SYSTEM NG *[id number] DYEVERT, CONTRAST HVOFF-RRS 07:45 [employer] NG Used MODULATION SYSTEM NG *[id number] History: Current Medications Medication Dosage/Unit Route Frequency Last Date/Time Taken ASA HEPARIN History: Allergies Allergy Reaction No Known Allergies vancomycin ANAPHYLAXIS History: Risk Factors Family History of Hypertension Dyslipidemia Previous IL Previous Heart Failure Premature CAD Yes Yes Yes No No Prior Valve Prior PCI Prior PCIDate Prior CABG Surgery No Yes 10/31/2001 No Cerebrovascular Peripheral Artery Chronic Lung On Dialysis Diabetes Disease Disease Disease No No No No Yes History: Symptoms/Diagnosis Selection Items Chest pain SOB History: CV Disease Selection Items Known CAD History: Stress Tests Stress or Imaging Studies Performed No History: Other Disease Selection Items CAD History: Other Current Smoker Method No Cigarettes Labs Hgb (g/dl) Hct (%) WBC (l/cumm) Platelets (thousands) 11.60-17.00 35.00-51.00 4.00-11.00 150.00-450.00 10.8 33.4 11.7 122 BUN (mg/dl) Creatinine (mg/dl) BUN:Creatinine (1:x) 7.00-18.00 0.50-1.30 10.00-20.00 50 2.5 20 Na (meq/l) K (meq/l) 136.00-145.00 3.50-5.10 141 38 Troponin I (ng/ml) CPK (u/l) CPK-MB (ng/ML) 0.02-0.05 26.00-308.00 0.50-3.60 0.5 407 Not Drawn Medication Medication Total Dose (Bolus/Oral) Medication Total Dosage/Unit 1% XYLOCAINE 20 mL AMIODARONE 16.7 mL/hr VERSED 2 mg Medications (Bolus/Oral) Medication Time Given Dosage/Unit Administered By Reason AMIODARONE 06/26/2018 7:31:48 AM 16.7 mL/hr Patient arrived on 16.7 mL/hr AMIODARONE in Right Antecubital via Peripheral IV. Pump/Drip Flow = 0 m l/hr using [Solution Name]. 1% XYLOCAINE 06/26/2018 7:40:25 AM 20 mL Bucky Bland 20 mL 1% XYLOCAINE given in lab by Bucky Bland in Right Groin via Subcutaneous. VERSED 06/26/2018 7:41:08 AM 2 mg Valentin Umanzor 2 mg VERSED given in lab by Valentin Umanzor, RN via Peripheral IV. Medication (Drip) Medication Time Given Dosage/Unit Concentration/Unit Diluent (ml) Solutio n IV Solutions 06/26/2018 7:32:36 AM 0 mL (IV) 1000 NaCl .9 Patient arrived on IV Solutions in Right Antecubital via Peripheral IV. Pump/Drip Flow = 75 ml/hr usi ng NaCl .9. Initial Case Assessment Cardiovascular HR Rhythm NIBP Chest Pain 60 reg 133/82 0 Edema Present Skin color Skin Moderate Normal Warm Circulatory - Right Pulses Dorsalis Pedis Femoral d 1 Scale (0,1,2,3,4,d) Circulatory - Left Pulses Dorsalis Pedis Femoral d 1 Scale (0,1,2,3,4,d) Circulatory - Lower Extremities Color Lower Right Color Lower Left Normal Normal Neurological State Oriented to time-place- Alert Moves all extremities person Respiration - General Respiration Rate SpO2 (%) O2 (lpm) (B/min) 13 96 2 Final Case Assessment Cardiovascular HR Rhythm NIBP 60 reg 125/78 Edema Present Skin color Skin Moderate Normal Warm Circulatory - Right Pulses Dorsalis Pedis Femoral d 1 Scale (0,1,2,3,4,d) Circulatory - Left Pulses Dorsalis Pedis Femoral d 1 Scale (0,1,2,3,4,d) Neurological State Oriented to time-place- Alert Moves all extremities person Respiration - General Respiration Rate SpO2 (%) O2 (lpm) (B/min) 13 96 2 Chronological Log Time Study Chronological Log 7:15:57 Patient arrived via Bed. 7:30:25 MD arrived. 7:31:08 Patient Name, D.O.B, / Armband Verified By R.N. 7:31:08 Consent signed by the physician and the patient and verified by the Machine Operator Assistant staff. 7:31:09 Pre-op and post- op instructions given; patient acknowledges understanding of instructions. 7:31:10 Verbal Stimulation=2 Physical Stimulation=2 Airway=2 Respiration=2 TOTAL=8. (0=absent, 1=li mited, 2=present) 7:31:12 Patient has been NPO for More than 6Hrs. Skin Breakdown-none 7:31:12 7:31:15 A # 20 IV was noted in the Antecubital (left). Grade = 0 saline locked Vitals capture started with the following parameters, Patient=Adult, Interval=5 min, Initial Pr heiesj=975 mmHg, 7:31:18 Deflation Rate=5 mmHg, Cuff placed on left Arm 7:31:39 A # 20 IV was noted in the Antecubital (right). Grade = 0 Patient arrived on 16.7 mL/hr AMIODARONE in Right Antecubital via Peripheral IV. Pump/Drip Flow = 0 ml/hr using 7:31:48 [Solution Name]. 7:32:04 HR=60 bpm, JKVT=909/82 mmhg, SpO2=95.0 %, Pain=0, Glenn=10, Leonardo=2 7:32:36 Patient arrived on IV Solutions in Right Antecubital via Peripheral IV. Pump/Drip Flow = 75 ml/hr using NaCl .9. 7:33:33 History and physical on the chart or being dictated. Assessment: Initial Case, HR=60 BPM, Rhythm=reg, LJCR=414/82 mmhg, Chest Pain=0, Edema=Mod, [place] r=Normal, Skin = Warm Right Pulses: Edy Ped=d, Femoral=1 Left Pulses: Edy Ped=d, Femoral=1 7:33:34 Lower Right Extremities: Color=Normal Lower Left Extremities: Color=Normal Neurological: State=Alert, Ox3, BAIG Respiration: Resp=13 B/min, SpO2=96 %, O2=2 lpm 7:34:15 Reference ECG taken 7:35:51 Bilateral groins prepped with 2% chlorhexidine, and draped after a 3 minute waiting time. 7:36:55 HR=60 bpm, CSYA=453/78 mmhg, SpO2=96.0 %, Pain=0, Glenn=10, Leonardo=2 7:39:13 Pressure channel 1 zeroed. Time Out. Correct patient, correct procedure, correct physician, labs, allergies, and equipment verified with semiconductor lab technician 7:40:14 team present. Fire risk assesment completed (see hard stop sheet for coding). Time Out Concu rred by MD and individual staff in procedure. 7:40:17 Case Start 7:40:19 Verbal Stimulation=2 Physical Stimulation=2 Airway=2 Respiration=2 TOTAL=8. (0=absent, 1=solares ited, 2=present) 7:40:25 20 mL 1% XYLOCAINE given in lab by Bucky Bland in Right Groin via Subcutaneous. 7:41:08 2 mg VERSED given in lab by Valentin Umanzor, RN via Peripheral IV. 7:41:56 HR=60 bpm, FQZX=539/82 mmhg, SpO2=96.0 %, Pain=0, Glenn=10, Leonardo=2 7:42:32 Access site was Right Femoral Artery. 7:42:38 A wire was inserted via Fem Art (right). 7:42:41 A SHEATH, FR6.5 PRELUDE 11CM FR 6.5 was advanced into the Fem Art (right) using the Percutan eous technique. A JL 4.0 INFINITI CATHETER FR 6 was advanced over a wire. OMNIPAQUE, 350 MG, 150ML 150ML was use d for 7:43:27 injections. 7:44:47 The LCA was injected and visualized at various angles. OMNIPAQUE, 350 MG, 150ML 150ML used. 7:45:15 Catheter was removed Recorded Pressure: Ao, HR=60, Condition=Condition 1 7:46:26 (Aorta) Ao 104/65/79 A 3DRC INFINITI CATHETER FR 6 was advanced over a wire. OMNIPAQUE, 350 MG, 150ML 150ML was used for 7:46:36 injections. 7:46:43 The RCA was injected and visualized at various angles. OMNIPAQUE, 350 MG, 150ML 150ML used. 7:46:59 HR=60 bpm, AANO=743/78 mmhg, Pain=0, Glenn=10, Leonardo=2 A PIGTAIL STR INFINITI CATHETER FR 6 was advanced over a wire. OMNIPAQUE, 350 MG, 150ML 150ML wa s used for 7:47:44 injections. Recorded Pressure: LV, HR=62, Condition=Condition 1 7:48:03 (Left Ventricle) LV 106/10/21 Recorded Pressure: LV, Ao, HR=61, Condition=Condition 1 7:48:17 (Left Ventricle) LV 103/11/18, (Aorta) Ao 109/64/77 7:48:47 Catheter was removed 7:49:01 Case End (Physician broke scrub) 7:49:06 An injection in the Fem Art (right) was made through the SHEATH, FR6.5 PRELUDE 11CM FR 6.5. Assessment: Final Case, HR=60 BPM, Rhythm=reg, KVUR=454/78 mmhg, Edema=Mod, Color=Normal, Skin = Warm Right Pulses: Edy Ped=d, Femoral=1 7:50:00 Left Pulses: Edy Ped=d, Femoral=1 Neurological: State=Alert, Ox3, BAIG Respiration: Resp=13 B/min, SpO2=96 %, O2=2 lpm 7:50:28 Catheter(s) removed without difficulty 7:50:35 VASCADE, FR6 CLOSURE SYSTEM FR 6\7 placement in the Fem Art (right) 7:50:45 Sterile dressing applied to site 7:50:46 No case complications noted. 7:50:47 Cine recording checked. 7:50:54 Bedside Report will be given. 7:51:01 Verbal Stimulation=2 Physical Stimulation=2 Airway=2 Respiration=2 TOTAL=8. (0=absent, 1=l imited, 2=present) 7:51:08 A Left Heart Cath was performed. 7:51:14 Clinical correlaton risk stratification. 7:51:56 HR=60 bpm, QGDG=807/77 mmhg, SpO2=93.0 %, Pain=0, Gelnn=10, Leonardo=2 7:57:00 HR=60 bpm, DNXH=406/77 mmhg, SpO2=95.0 %, Pain=0, Glenn=10, Leonardo=2 7:57:36 Vitals capture stopped. End Study - Contrast Media Used In Study Contrast Total Opened (mL) Total Used (mL) Total Wasted (mL) Omnipaque 35 35 0 End Study - Maximum Contrast Load Max Contrast Load (mL) 642.0 End Study - Radiation Exposure Fluoro Time (minutes) 1.6 End Study - Sheaths Sheaths Pulled By Sheath Hold Time (min) Onesimo Arellano 2 End Study - Patient Disposition Complications Transferred To No Telemetry Bed
[2018-06-26] MEDS ORDERED: Atropine Inj 1 MG/ML Vial IV.PUSH PRN (08:01)
--- NOTE | 2018-06-26 08:09 | P.PNCA ---
Subjective Interval history: Somnolent. Denies CP, dyspnea, dizziness, nausea. Physical Exam Vital signs: Vital Signs 06/25/18 11:00 06/25/18 15:00 06/25/18 19:00 Temperature 98.0 F 97.8 F 98.2 F Pulse Rate 61 64 60 Respiratory Rate 20 20 20 Blood Pressure 112/67 133/71 122/68 Pulse Oximetry 96 98 96 06/25/18 23:00 06/26/18 00:00 06/26/18 01:00 Temperature 97.9 F Pulse Rate 60 60 60 Respiratory Rate 20 Blood Pressure 111/70 Pulse Oximetry 97 06/26/18 02:00 06/26/18 03:00 06/26/18 04:00 Temperature 98.1 F Pulse Rate 60 60 60 Respiratory Rate 20 Blood Pressure 113/61 Pulse Oximetry 96 06/26/18 05:00 06/26/18 06:00 Temperature Pulse Rate 60 60 Respiratory Rate Blood Pressure Pulse Oximetry Intake & Output 06/25/18 06/26/18 06/26/18 18:59 06:59 18:59 Intake Total 1560 / 1560 1736 / 1736 5 / 5 Output Total 900 / 900 750 / 750 Balance 660 / 660 986 / 986 5 / 5 Weight 148 kg Intake: IV 1200 / 1200 350 / 350 5 / 5 Heparin/NS PF Inj 1,500 ML @ 0 5 / 5 mls/hr .ROUTE .K-MED ONE Rx#: [id number] Cordarone Inj 450 MG In D5W Inj 250 / 250 250 / 250 241 ML @ 1 MG/MIN 33.33 mls/hr IV.CONT TITRATE PRN Rx#: [id number] Heparin/D5W 25,000 U/250 mL 25, 250 / 250 000 unit In 250 ml @ Per Protocol IV.CONT TITRATE PRN Rx #:[id number] Zyvox 600 mg Premix 300 ML @ 600 / 600 300 mls/hr IV.SIG Q12H NAT[facility]EE Rx#: [id number] Zosyn 3.375 GM Premix 50 ML @ 100 / 100 100 / 100 100 mls/hr IV.SIG Q6H NATALEE Rx#: [id number] Oral 360 / 360 0 / 0 Other 1386 / 1386 Output: Urine 900 / 900 750 / 750 Other: Date of Last Bowel Movement 06/23/18 06/23/18 # Bowel Movements 0 - Constitutional no acute distress - Routine Neck Exam Absent: JVD - Routine Respiratory Exam Present: CTA bilaterally - Routine Cardiovascular Exam Present: RRR, S1, S2. Absent: murmur, gallop - Routine Abdominal Exam Present: soft, normoactive bowel sounds. Absent: tenderness, organomegaly - Routine Extremities Exam Present: edema. Absent: cyanosis, clubbing Comments: 1+ pretibial edema, chronic venous stasis changes Assessment and Plan - Assessment (1) Ventricular fibrillation Code(s): I49.01 - Ventricular fibrillation Status: Acute Plan: Stable overnight on IV Amiodarone. Worsened LV function by echo this admission , EF now down to 15%. Recommend change to oral Amiodarone 400 mg qd which will be discharge dose. Possible discharge tomorrow. (2) Coronary artery disease Code(s): I25.10 - Atherosclerotic heart disease of [place] coronary artery without angina pectoris Status: Chronic Plan: Minimal CAD seen on cath today. LAD Stent placed many years ago widely patent. Dye load minimized to 30 cc. Recommend continue beta augusto, aspirin. (3) Ischemic cardiomyopathy Code(s): I25.5 - Ischemic cardiomyopathy Status: Chronic Plan: Stable. Overall now compensated. EF now down to 15% (from 35% about 2 years ago). Recommend continue beta augusto, no KOJO-I or ARB or Entresto with her renal insufficiency, change back to oral furosemide. (4) Paroxysmal atrial fibrillation Code(s): I48.0 - Paroxysmal atrial fibrillation Status: Chronic Plan: History of ablation. No significant atrial arrhythmia burden past couple years , based on ICD checks, though had recurrences post ablation. Resume warfarin. Her thromboembolic risk is high. - Plan Code Status: full code Discussed Condition With: patient's family (2) Coronary artery disease Qualifiers: Coronary Disease-Associated Artery/Lesion type: [place] artery [place] vs. transplanted heart: [place] heart Associated angina: with unstable angina Qualified Code(s): I25.110 - Atherosclerotic heart disease of [place] coronary artery with unstable angina pectoris
[2018-06-26] MEDS: Sod Chloride 0.9% Inj 500 ML IV.CONT SCH (08:10)
--- NOTE | 2018-06-26 08:24 | MA ---
cc: Bucky Bland MD DATE: 06/26/2018 PROCEDURE: Left heart catheterization, selective coronary angiography. DETAILS OF PROCEDURE: The patient was brought to the cardiac catheterization laboratory in a fasting state after having signed informed consent. The right groin was prepped and draped as per policy and anesthetized with 1% lidocaine. Arterial access was obtained via the right femoral artery and a 6-Tunisian sheath placed. Coronary arteriography was performed using 6-[place]ian Jake left 4.0 and right progressive catheters. Due to the patient's elevated creatinine, left ventriculography was not done and a DyeVert device was used to minimize dye load. A total of approximately 31 mL of contrast was used during the case. Her arteriotomy site was closed with VASCADE. HEMODYNAMIC DATA: Left ventricle 103 with an end-diastolic pressure of 18. Aorta 109/64 with a mean of 77. There was no significant transvalvular aortic gradient on pullback of the pigtail catheter. CORONARY ARTERIOGRAPHY: The left main is normal. The left anterior descending demonstrates a stent in its proximal portion. The stent is widely patent. The proximal and mid LAD have minimal luminal irregularities. There is a large diagonal which is angiographically normal. The distal LAD is normal. The left circumflex is a relatively small vessel giving rise to a small obtuse marginal. No disease is seen in the left circumflex system. There is a fairly large ramus intermedius, which is angiographically normal. The right coronary artery is a large dominant vessel with a diffuse up to 10% disease in its proximal to mid portion. LEFT VENTRICULOGRAPHY: not done. CONCLUSIONS: 1. Minimal coronary artery disease. 2. Widely patent proximal left anterior descending stent placed approximately 15 years ago. MD MARY Saez/vivian , 07:52 AM , 07:58 AM DUNIA
[2018-06-26] MEDS ORDERED: Iohexol 350 MG/ML 50 ML Vial (for Cath Lab) IVCONTRAST ONE (10:10)
[2018-06-26] MEDS: Famotidine PF Inj 20 MG/2 ML Vial IV.PUSH SCH ×2 (11:30→21:19)
[2018-06-26] MEDS: Furosemide 40 MG Tablet PO SCH ×2 (11:31→18:11)
[2018-06-26] MEDS: Amiodarone 200 MG Tablet PO SCH (11:31)
--- NOTE | 2018-06-26 12:08 | P.PNIM ---
Subjective Interval history: Patient seen and examined this morning. Afebrile vital signs stable. She is status post cardiac catheterization. Reports that no blockage was noted. She reports that she is feeling fine and has not felt any more shocks since being in the ER. Denies any nausea vomiting or chest pain. She reports that she is starting to eat her lunch and is feeling very happy about this. No complaints or concerns at this time. Physical Exam Vital signs: Vital Signs 06/25/18 15:00 06/25/18 19:00 06/25/18 23:00 Temperature 97.8 F 98.2 F 97.9 F Pulse Rate 64 60 60 Respiratory Rate 20 20 20 Blood Pressure 133/71 122/68 111/70 Pulse Oximetry 98 96 97 06/26/18 00:00 06/26/18 01:00 06/26/18 02:00 Temperature Pulse Rate 60 60 60 Respiratory Rate Blood Pressure Pulse Oximetry 06/26/18 03:00 06/26/18 04:00 06/26/18 05:00 Temperature 98.1 F Pulse Rate 60 60 60 Respiratory Rate 20 Blood Pressure 113/61 Pulse Oximetry 96 06/26/18 06:00 06/26/18 07:00 Temperature 98.4 F Pulse Rate 60 60 Respiratory Rate 15 Blood Pressure 105/78 Pulse Oximetry 97 Intake & Output 06/25/18 06/26/18 06/26/18 18:59 06:59 18:59 Intake Total 1560 / 1560 1736 / 1736 5 / 5 Output Total 900 / 900 750 / 750 Balance 660 / 660 986 / 986 5 / 5 Weight 148 kg Intake: IV 1200 / 1200 350 / 350 5 / 5 Heparin/NS PF Inj 1,500 ML @ 0 5 / 5 mls/hr .ROUTE .STK-MED ONE Rx#: [id number] Cordarone Inj 450 MG In D5W Inj 250 / 250 250 / 250 241 ML @ 1 MG/MIN 33.33 mls/hr IV.CONT TITRATE PRN Rx#: [id number] Heparin/D5W 25,000 U/250 mL 25, 250 / 250 000 unit In 250 ml @ Per Protocol IV.CONT TITRATE PRN Rx #:[id number] Zyvox 600 mg Premix 300 ML @ 600 / 600 300 mls/hr IV.SIG Q12H [facility] Rx#: [id number] Zosyn 3.375 GM Premix 50 ML @ 100 / 100 100 / 100 100 mls/hr IV.SIG Q6H [facility] Rx#: [id number] Oral 360 / 360 0 / 0 Other 1386 / 1386 Output: Urine 900 / 900 750 / 750 Other: Date of Last Bowel Movement 06/23/18 06/23/18 # Bowel Movements 0 Narrative: GEN: Well-developed, well-nourished obese female patient. No acute distress. CV: Regular rate and rhythm without obvious murmurs LUNGS: Clear to auscultation bilaterally. Normal respiratory effort. No wheezes , rales, rhonchi. GI: Soft, nontender, nondistended. No palpable masses. Bowel sounds WNL. EXT: No edema. NEURO/PSYCH: Afocal. Awake, alert, and oriented x3. Appropriate insight and judgment. Results - Labs CBC & Chem 7: 06/26/18 04:56 06/26/18 04:56 Laboratory Results - last 24 hr 06/25/18 06/25/18 06/25/18 12:02 12:02 13:07 WBC RBC Hgb Hct MCV MCH MCHC RDW Plt Count MPV PT INR APTT 54.8 H D Sodium Potassium Chloride Carbon Dioxide Anion Gap BUN Creatinine Estimated GFR POC Glucose 124 H Random Glucose Lactic Acid 1.6 Calcium Phosphorus Magnesium Total Bilirubin AST ALT Alkaline Phosphatase B-Natriuretic Peptide Total Protein Albumin 06/25/18 06/25/18 06/26/18 19:38 23:29 04:56 WBC RBC Hgb Hct MCV MCH MCHC RDW Plt Count MPV PT 17.4 H INR 1.7 APTT 44.8 H 54.8 H D Sodium Potassium Chloride Carbon Dioxide Anion Gap BUN Creatinine Estimated GFR POC Glucose 163 H Random Glucose Lactic Acid Calcium Phosphorus Magnesium Total Bilirubin AST ALT Alkaline Phosphatase B-Natriuretic Peptide Total Protein Albumin 06/26/18 06/26/18 06/26/18 04:56 04:56 04:56 WBC 11.7 H RBC 3.49 L Hgb 10.8 L Hct 33.4 L MCV 95.6 MCH 30.9 MCHC 32.3 RDW 15.7 Plt Count 122 L MPV 9.8 PT INR APTT Sodium 141 Potassium 3.8 Chloride 102 Carbon Dioxide 28.1 Anion Gap 11 BUN 50 H Creatinine 2.49 H Estimated GFR 19 L POC Glucose Random Glucose 158 H Lactic Acid Calcium 8.5 Phosphorus 3.8 Magnesium 2.0 Total Bilirubin 0.7 AST 22 ALT 34 Alkaline Phosphatase 77 B-Natriuretic Peptide 347 H Total Protein 6.7 Albumin 2.5 L Microbiology 06/24/18 10:35 Blood - Peripheral Aerobic Blood Culture - Preliminary No growth in 2 days 06/24/18 10:35 Blood - Peripheral Anaerobic Blood Culture - Preliminary No growth in 2 days 06/24/18 10:30 Blood - Peripheral Aerobic Blood Culture - Preliminary No growth in 2 days 06/24/18 10:30 Blood - Peripheral Anaerobic Blood Culture - Preliminary Group B beta Strep 06/24/18 17:45 Catheterized Urine Urine Culture - Final Escherichia coli Multidrug Resistant - Procedures Cardiac catheterization Assessment and Plan - Assessment (1) Coronary artery disease Code(s): I25.10 - Atherosclerotic heart disease of [place] coronary artery without angina pectoris Status: Chronic (2) Ventricular fibrillation Code(s): I49.01 - Ventricular fibrillation Status: Acute (3) Ischemic cardiomyopathy Code(s): I25.5 - Ischemic cardiomyopathy Status: Chronic (4) Paroxysmal atrial fibrillation Code(s): I48.0 - Paroxysmal atrial fibrillation Status: Chronic (5) CKD (chronic kidney disease) stage 4, GFR 15-29 ml/min Code(s): N18.4 - Chronic kidney disease, stage 4 (severe) Status: Acute - Plan Assessment: 72yF with ischemic cardiomyopathy and a last known EF of ~30-35% who presents with symptoms concerning for acute coronary syndrome and 13 episodes of ventricular fibrillation s/p 10 AICD defibrillations. continue heparin, aspirin, trending troponins. now out of shock. Acute hypoxemia- resolving. Acute pulmonary edema secondary to CHF exacerbation forced diuresis wean o2 by ia for goal spo2 > 90% Cardiovascular: Acute coronary syndrome Acute NSTEMI Cardiogenic Shock- resolved Multiple episodes of ventricular fibrillation Ischemic cardiomyopathy, EF 30-35% Acute systolic heart failure exacerbation Status post cardiac catheterization, no new blockage found Started amiodarone 400 mg daily which will be patient's new discharge dose diuresis with lasix 80mg iv BID. trend troponins: Slowly trended down lactate cleared. Cardiology consult: Dr. Baldo RKUEGER Renal: Chronic renal insufficiency, stage IV nephrology consultation clear for cardiac catheterization would avoid any additional iv fluids Strict I/Os FEN/GI: Morbid Obesity Acute liver injury- resolving. Lactic Acidosis- resolved Acute intravascular volume overloadl trend lactates daily CMP likely secondary to shock liver Heme/ID: Possible sepsis: present on admission Fever Leukocytosis: Trending down currently 11.7 patient history is suggestive of cardiogenic source of acute illness and lactic acidosis appears to be secondary to cardiogenic shock blood and urine cultures patient has a subjective history of anaphylaxis to vancomycin patient has had MRSA and e.coli healthcare associated infections in the past will broadly cover with zosyn and linezolid empirically daily CBC Endocrine: Diabetes -- SSI Prophylaxis: GI Prophylaxis pepcid DVT Prophylaxis -- SCDs heparin drip for ACS Code Status: Full code Discharge Planning: Anticipate discharge home tomorrow 06/27/18 if cleared by cardiology (1) Coronary artery disease Qualifiers: Coronary Disease-Associated Artery/Lesion type: [place] artery [place] vs. transplanted heart: [place] heart Associated angina: with unstable angina Qualified Code(s): I25.110 - Atherosclerotic heart disease of [place] coronary artery with unstable angina pectoris
--- NOTE | 2018-06-26 14:28 | P.PNNP ---
Subjective Interval history: Status post heart catheterization Physical Exam Vital signs: Vital Signs 06/25/18 15:00 06/25/18 19:00 06/25/18 23:00 Temperature 97.8 F 98.2 F 97.9 F Pulse Rate 64 60 60 Respiratory Rate 20 20 20 Blood Pressure 133/71 122/68 111/70 Pulse Oximetry 98 96 97 06/26/18 00:00 06/26/18 01:00 06/26/18 02:00 Temperature Pulse Rate 60 60 60 Respiratory Rate Blood Pressure Pulse Oximetry 06/26/18 03:00 06/26/18 04:00 06/26/18 05:00 Temperature 98.1 F Pulse Rate 60 60 60 Respiratory Rate 20 Blood Pressure 113/61 Pulse Oximetry 96 06/26/18 06:00 06/26/18 07:00 06/26/18 08:00 Temperature 98.4 F Pulse Rate 60 60 50 L Respiratory Rate 15 Blood Pressure 105/78 Pulse Oximetry 97 06/26/18 09:00 06/26/18 10:00 06/26/18 11:00 Temperature Pulse Rate 60 58 L 102 H Respiratory Rate Blood Pressure Pulse Oximetry 06/26/18 12:00 06/26/18 12:42 Temperature Pulse Rate 60 Respiratory Rate Blood Pressure Pulse Oximetry 95 Intake & Output 06/25/18 06/26/18 06/26/18 18:59 06:59 18:59 Intake Total 1560 / 1560 1736 / 1736 5 / 5 Output Total 900 / 900 750 / 750 Balance 660 / 660 986 / 986 5 / 5 Weight 148 kg Intake: IV 1200 / 1200 350 / 350 5 / 5 Heparin/NS PF Inj 1,500 ML @ 0 5 / 5 mls/hr .ROUTE .STK-MED ONE Rx#: [id number] Cordarone Inj 450 MG In D5W Inj 250 / 250 250 / 250 241 ML @ 1 MG/MIN 33.33 mls/hr IV.CONT TITRATE PRN Rx#: [id number] Heparin/D5W 25,000 U/250 mL 25, 250 / 250 000 unit In 250 ml @ Per Protocol IV.CONT TITRATE PRN Rx #:[id number] Zyvox 600 mg Premix 300 ML @ 600 / 600 300 mls/hr IV.SIG Q12H NATALEE Rx#: [id number] Zosyn 3.375 GM Premix 50 ML @ 100 / 100 100 / 100 100 mls/hr IV.SIG Q6H NATALEE Rx#: [id number] Oral 360 / 360 0 / 0 Other 1386 / 1386 Output: Urine 900 / 900 750 / 750 Other: Date of Last Bowel Movement 06/23/18 06/23/18 # Bowel Movements 0 - Constitutional no acute distress - Routine HEENT Exam Eye: Present: EOMI - Routine Neck Exam Present: supple - Routine Respiratory Exam Present: CTA bilaterally - Routine Cardiovascular Exam Present: RRR - Routine Abdominal Exam Present: soft, normoactive bowel sounds - Routine Extremities Exam Present: edema Assessment and Plan - Assessment (1) CKD (chronic kidney disease) stage 4, GFR 15-29 ml/min Code(s): N18.4 - Chronic kidney disease, stage 4 (severe) Status: Acute (2) Coronary artery disease Code(s): I25.10 - Atherosclerotic heart disease of [place] coronary artery without angina pectoris Status: Chronic Qualifiers: Coronary Disease-Associated Artery/Lesion type: [place] artery [place] vs. transplanted heart: [place] heart Associated angina: with unstable angina Qualified Code(s): I25.110 - Atherosclerotic heart disease of [place] coronary artery with unstable angina pectoris (3) Ventricular fibrillation Code(s): I49.01 - Ventricular fibrillation Status: Acute (4) Ischemic cardiomyopathy Code(s): I25.5 - Ischemic cardiomyopathy Status: Chronic - Plan heart catheterization done 30 cc of contrast used follow BMP Patient was told about hemodialysis in detail possibility of line placement, infection, bleeding, cramps, low blood pressure explained to her . Patient will continue to be on diuretic
[2018-06-27] MEDS: Sod Chloride 0.9% Inj 500 ML IV.CONT SCH ×3 (02:46→16:13)
[2018-06-27] MEDS: Piperacil/Tazo 3.375 GM Premix 50 ML IV.SIG SCH ×4 (04:07→22:02)
[2018-06-27 04:25] LABS: Hematocrit 32.5 % (35.0-46.0); Hemoglobin 10.6 gm/dL (11.6-15.3); Mean Corpuscular HGB Conc 32.6 % (32.0-36.0); Mean Corpuscular Hemoglobin 30.7 pg (27.0-34.0); Mean Corpuscular Volume 94.4 fL (80.0-100.0); Mean Platelet Volume 9.7 fL (7.0-11.0); Platelet Count 118 th/mm3 (150-450); Red Blood Count 3.44 mil/mm3 (4.00-5.30); Red Cell Distribution Width 15.2 % (11.6-17.2); White Blood Count 7.9 th/mm3 (4.0-11.0)
[2018-06-27 04:35] LABS: INR 1.9 Ratio; Prothrombin Time 19.7 sec (9.8-11.6)
[2018-06-27 04:57] LABS: Albumin 2.4 g/dL (3.4-5.0); Anion Gap 12 meq/L (5-15); Aspartate Aminotransferase 36 U/L (15-37); Blood Urea Nitrogen 51 mg/dL (7-18); Calcium 8.4 mg/dL (8.5-10.1); Carbon Dioxide 26.4 meq/L (21.0-32.0); Chloride 102 meq/L (98-107); Glomerular Filtration Rate 18 mL/min (>89); Glucose,Random 137 mg/dL (74-106); Magnesium 1.9 mg/dL (1.5-2.5); Potassium 3.8 meq/L (3.5-5.1); Sodium 140 meq/L (136-145)
[2018-06-27 04:58] LABS: Alanine Aminotransferase 44 U/L (10-53)
[2018-06-27 05:00] LABS: Alkaline Phosphatase 115 U/L (45-117); Phosphorus 3.2 mg/dL (2.5-4.9); Total Protein 6.6 g/dL (6.4-8.2)
[2018-06-27] MEDS: Sod Chloride 0.9% Inj 1,000 ML IV.CONT SCH (05:54)
[2018-06-27] MEDS: Chlorhexidine Gluconate 2% 1 Pack (2 Cloths) TOPICAL SCH (05:55)
[2018-06-27] MEDS ORDERED: Dextrose 50% in Water 50 ML Vial IV.PUSH PRN (07:30)
[2018-06-27] MEDS: Allopurinol 100 MG Tablet PO SCH (08:38)
[2018-06-27] MEDS: Amiodarone 200 MG Tablet PO SCH (08:38)
[2018-06-27] MEDS: Calcitriol 0.25 MCG Capsule PO SCH (08:39)
[2018-06-27] MEDS: Famotidine PF Inj 20 MG/2 ML Vial IV.PUSH SCH ×2 (08:39→21:52)
[2018-06-27] MEDS: Insulin NovoLOG Aspart Correctional Sugar Inj SQ SCH ×4 (08:40→21:53)
[2018-06-27] MEDS: Furosemide 40 MG Tablet PO SCH ×2 (08:48→10:17)
--- NOTE | 2018-06-27 08:53 | P.PNCA ---
Subjective Interval history: Complains of "deep" right sided CP off and on this morning, slight increase with deep inspiration. No left sided CP. Mild dyspnea at rest. No PND, dizziness, syncope, nausea. Appetite poor. Physical Exam Vital signs: Vital Signs 06/26/18 09:00 06/26/18 10:00 06/26/18 11:00 Temperature Pulse Rate 60 58 L 102 H Respiratory Rate Blood Pressure Pulse Oximetry 06/26/18 12:00 06/26/18 12:42 06/26/18 14:00 Temperature Pulse Rate 60 67 Respiratory Rate Blood Pressure Pulse Oximetry 95 06/26/18 15:00 06/26/18 16:00 06/26/18 17:00 Temperature 98.1 F Pulse Rate 60 60 61 Respiratory Rate 15 Blood Pressure 100/65 Pulse Oximetry 97 06/26/18 17:45 06/26/18 18:00 06/26/18 19:00 Temperature 97.6 F Pulse Rate 62 60 Respiratory Rate 20 Blood Pressure 107/60 Pulse Oximetry 97 98 06/26/18 20:00 06/26/18 21:00 06/26/18 22:00 Temperature Pulse Rate 60 60 60 Respiratory Rate Blood Pressure Pulse Oximetry 06/26/18 23:00 06/27/18 00:00 06/27/18 01:00 Temperature 97.4 F L Pulse Rate 60 60 60 Respiratory Rate 16 Blood Pressure 111/56 L Pulse Oximetry 100 06/27/18 02:00 06/27/18 02:49 06/27/18 03:00 Temperature 98 F Pulse Rate 60 60 53 L Respiratory Rate 16 Blood Pressure 113/64 Pulse Oximetry 98 98 06/27/18 04:00 06/27/18 05:00 06/27/18 06:00 Temperature Pulse Rate 60 60 60 Respiratory Rate Blood Pressure Pulse Oximetry 06/27/18 07:00 06/27/18 08:08 Temperature Pulse Rate Respiratory Rate Blood Pressure Pulse Oximetry 98 96 Intake & Output 06/26/18 06/27/18 06/27/18 18:59 06:59 18:59 Intake Total 2245 / 2245 940 / 940 Output Total 250 / 250 400 / 400 Balance 1994 / 1994 540 / 540 Weight 148 kg Intake: IV 2004 700 / 700 Heparin/NS PF Inj 1,500 ML @ 0 5 / 5 mls/hr .ROUTE .STK-MED ONE Rx#: [id number] Cordarone Inj 450 MG In D5W Inj 100 / 100 241 ML @ 1 MG/MIN 33.33 mls/hr IV.CONT TITRATE PRN Rx#: [id number] NS Inj 500 ML @ 50 mls/hr IV. 1500 / 1500 CONT .Q10H NATALEE Rx#:[id number] Zyvox 600 mg Premix 300 ML @ 300 / 300 600 / 600 300 mls/hr IV.SIG Q12H NATALEE Rx#: [id number] Zosyn 3.375 GM Premix 50 ML @ 100 / 100 100 / 100 100 mls/hr IV.SIG Q6H NATALEE Rx#: [id number] Oral 240 / 240 240 / 240 Output: Urine 250 / 250 400 / 400 Other: Date of Last Bowel Movement 06/23/18 - Constitutional no acute distress - Routine Neck Exam Absent: JVD - Routine Respiratory Exam Present: CTA bilaterally - Routine Cardiovascular Exam Present: RRR, S1, S2. Absent: murmur, gallop - Routine Abdominal Exam Present: soft, normoactive bowel sounds. Absent: tenderness, organomegaly - Routine Extremities Exam Present: edema. Absent: cyanosis, clubbing Comments: 1+ pretibial edema and chronic venous stasis changes Assessment and Plan - Assessment (1) Ventricular fibrillation Code(s): I49.01 - Ventricular fibrillation Status: Acute Plan: Stable overnight. Worsened LV function by echo this admission, EF now down to 15%. Recommend continue oral Amiodarone 400 mg qd which will be discharge dose. Recommend increase ambulation, discharge tomorrow if stable. Will f/u patient in office. (2) Coronary artery disease Code(s): I25.10 - Atherosclerotic heart disease of [place] coronary artery without angina pectoris Status: Chronic Plan: Minimal CAD seen on cath yesterday. LAD Stent placed many years ago widely patent. Dye load minimized to 30 cc. Renal indices stable so far. Recommend continue beta augusto, aspirin. (3) Ischemic cardiomyopathy Code(s): I25.5 - Ischemic cardiomyopathy Status: Chronic Plan: Stable. Overall now compensated. EF now down to 15% (from 35% about 2 years ago). Recommend continue beta augusto, ARB; changed back to oral furosemide--> her furosemide dose apparently is once a day at home. (4) Paroxysmal atrial fibrillation Code(s): I48.0 - Paroxysmal atrial fibrillation Status: Chronic Plan: History of ablation. No significant atrial arrhythmia burden past couple years , based on ICD checks, though had recurrences post ablation. Resume warfarin. Her thromboembolic risk is high. - Plan Code Status: full code Discussed Condition With: patient (2) Coronary artery disease Qualifiers: Coronary Disease-Associated Artery/Lesion type: [place] artery [place] vs. transplanted heart: [place] heart Associated angina: with unstable angina Qualified Code(s): I25.110 - Atherosclerotic heart disease of [place] coronary artery with unstable angina pectoris
[2018-06-27] MEDS ORDERED: Amiodarone 200 MG Tablet PO SCH (09:00)
[2018-06-27] MEDS: Carvedilol 6.25 MG Tablet PO SCH ×2 (10:17→22:43)
--- NOTE | 2018-06-27 12:28 | P.PNIM ---
Subjective Interval history: Patient seen and examined this morning. Afebrile vital signs stable. At time of exam patient was having severe heartburn that was resulting in some nausea and the patient on Protonix and this resolved her issue. Patient denied any chest pain or shortness of breath. Did not feel like her heart was racing or skipping a beat due to the chest pain from the heartburn obtain an EKG. Discussed case with half section ironer. At this time will continue the higher level of amiodarone and digoxin. Continue to monitor and discharge home tomorrow if stable. Patient understands and agrees with plan of care. Physical Exam Vital signs: Vital Signs 06/26/18 12:42 06/26/18 14:00 06/26/18 15:00 Temperature 98.1 F Pulse Rate 67 60 Respiratory Rate 15 Blood Pressure 100/65 Pulse Oximetry 95 97 06/26/18 16:00 06/26/18 17:00 06/26/18 17:45 Temperature Pulse Rate 60 61 Respiratory Rate Blood Pressure Pulse Oximetry 97 06/26/18 18:00 06/26/18 19:00 06/26/18 20:00 Temperature 97.6 F Pulse Rate 62 60 60 Respiratory Rate 20 Blood Pressure 107/60 Pulse Oximetry 98 06/26/18 21:00 06/26/18 22:00 06/26/18 23:00 Temperature 97.4 F L Pulse Rate 60 60 60 Respiratory Rate 16 Blood Pressure 111/56 L Pulse Oximetry 100 06/27/18 00:00 06/27/18 01:00 06/27/18 02:00 Temperature Pulse Rate 60 60 60 Respiratory Rate Blood Pressure Pulse Oximetry 06/27/18 02:49 06/27/18 03:00 06/27/18 04:00 Temperature 98 F Pulse Rate 60 53 L 60 Respiratory Rate 16 Blood Pressure 113/64 Pulse Oximetry 98 98 06/27/18 05:00 06/27/18 06:00 06/27/18 07:00 Temperature 97.9 F Pulse Rate 60 60 60 Respiratory Rate 18 Blood Pressure 103/58 L Pulse Oximetry 98 06/27/18 08:00 06/27/18 08:08 06/27/18 09:00 Temperature Pulse Rate 60 60 Respiratory Rate Blood Pressure Pulse Oximetry 96 06/27/18 10:00 06/27/18 11:00 06/27/18 12:00 Temperature 97.8 F Pulse Rate 60 60 60 Respiratory Rate 18 Blood Pressure 98/58 L Pulse Oximetry 98 Intake & Output 06/26/18 06/27/18 06/27/18 18:59 06:59 18:59 Intake Total 2245 / 2245 940 / 940 50 / 50 Output Total 250 / 250 400 / 400 Balance 1994 540 / 540 50 / 50 Weight 148 kg Intake: IV 2004 700 / 700 50 / 50 Heparin/NS PF Inj 1,500 ML @ 0 5 / 5 mls/hr .ROUTE .STK-MED ONE Rx#: [id number] Cordarone Inj 450 MG In D5W Inj 100 / 100 241 ML @ 1 MG/MIN 33.33 mls/hr IV.CONT TITRATE PRN Rx#: [id number] NS Inj 500 ML @ 50 mls/hr IV. 1500 / 1500 CONT .Q10H NATALEE Rx#:[id number] Zyvox 600 mg Premix 300 ML @ 300 / 300 600 / 600 300 mls/hr IV.SIG Q12H NATALEE Rx#: [id number] Zosyn 3.375 GM Premix 50 ML @ 100 / 100 100 / 100 50 / 50 100 mls/hr IV.SIG Q6H NATALEE Rx#: [id number] Oral 240 / 240 240 / 240 Output: Urine 250 / 250 400 / 400 Other: Date of Last Bowel Movement 06/23/18 06/27/18 Narrative: GEN: Well-developed, well-nourished obese female patient. No acute distress. CV: Regular rate and rhythm without obvious murmurs LUNGS: Clear to auscultation bilaterally. Normal respiratory effort. No wheezes , rales, rhonchi. GI: Soft, nontender, nondistended. No palpable masses. Bowel sounds WNL. EXT: No edema. NEURO/PSYCH: Afocal. Awake, alert, and oriented x3. Appropriate insight and judgment. Results - Labs CBC & Chem 7: 06/27/18 03:55 06/27/18 03:55 Laboratory Results - last 24 hr 06/26/18 06/27/18 06/27/18 16:42 00:11 03:55 WBC RBC Hgb Hct MCV MCH MCHC RDW Plt Count MPV PT 19.7 H INR 1.9 Sodium Potassium Chloride Carbon Dioxide Anion Gap BUN Creatinine Estimated GFR POC Glucose 141 H 180 H Random Glucose Calcium Phosphorus Magnesium Total Bilirubin AST ALT Alkaline Phosphatase B-Natriuretic Peptide Total Protein Albumin 06/27/18 06/27/18 06/27/18 03:55 03:55 03:55 WBC 7.9 RBC 3.44 L Hgb 10.6 L Hct 32.5 L MCV 94.4 MCH 30.7 MCHC 32.6 RDW 15.2 Plt Count 118 L MPV 9.7 PT INR Sodium 140 Potassium 3.8 Chloride 102 Carbon Dioxide 26.4 Anion Gap 12 BUN 51 H Creatinine 2.55 H Estimated GFR 18 L POC Glucose Random Glucose 137 H Calcium 8.4 L Phosphorus 3.2 Magnesium 1.9 Total Bilirubin 0.8 AST 36 ALT 44 Alkaline Phosphatase 115 B-Natriuretic Peptide 398 H Total Protein 6.6 Albumin 2.4 L 06/27/18 06/27/18 07:47 11:45 WBC RBC Hgb Hct MCV MCH MCHC RDW Plt Count MPV PT INR Sodium Potassium Chloride Carbon Dioxide Anion Gap BUN Creatinine Estimated GFR POC Glucose 156 H 206 H Random Glucose Calcium Phosphorus Magnesium Total Bilirubin AST ALT Alkaline Phosphatase B-Natriuretic Peptide Total Protein Albumin Microbiology 06/24/18 10:35 Blood - Peripheral Aerobic Blood Culture - Preliminary No growth in 3 days 06/24/18 10:35 Blood - Peripheral Anaerobic Blood Culture - Preliminary No growth in 3 days 06/24/18 10:30 Blood - Peripheral Aerobic Blood Culture - Preliminary No growth in 3 days 06/24/18 10:30 Blood - Peripheral Anaerobic Blood Culture - Final Group B beta Strep 06/24/18 17:45 Catheterized Urine Urine Culture - Final Escherichia coli Multidrug Resistant - Procedures Cardiac catheterization Assessment and Plan - Assessment (1) Coronary artery disease Code(s): I25.10 - Atherosclerotic heart disease of [place] coronary artery without angina pectoris Status: Chronic (2) Ventricular fibrillation Code(s): I49.01 - Ventricular fibrillation Status: Acute (3) Ischemic cardiomyopathy Code(s): I25.5 - Ischemic cardiomyopathy Status: Chronic (4) Paroxysmal atrial fibrillation Code(s): I48.0 - Paroxysmal atrial fibrillation Status: Chronic (5) CKD (chronic kidney disease) stage 4, GFR 15-29 ml/min Code(s): N18.4 - Chronic kidney disease, stage 4 (severe) Status: Acute (6) UTI (urinary tract infection) due to Enterococcus Code(s): N39.0 - Urinary tract infection, site not specified; B95.2 - Enterococcus as the cause of diseases classified elsewhere Status: Acute - Plan Assessment: 72yF with ischemic cardiomyopathy and a last known EF of ~30-35% who presents with symptoms concerning for acute coronary syndrome and 13 episodes of ventricular fibrillation s/p 10 AICD defibrillations. continue heparin, aspirin, trending troponins. now out of shock. Acute hypoxemia- resolving. Acute pulmonary edema secondary to CHF exacerbation forced diuresis wean o2 by nc for goal spo2 > 90% Cardiovascular: Acute coronary syndrome Acute NSTEMI Cardiogenic Shock- resolved Multiple episodes of ventricular fibrillation Ischemic cardiomyopathy, EF 30-35% Acute systolic heart failure exacerbation Status post cardiac catheterization, no new blockage found Continue amiodarone 400 mg daily which will be patient's new discharge dose P.o. Lasix once daily trend troponins: Slowly trended down lactate cleared. Cardiology consult: Dr. Baldo KRUEGER Renal: Chronic renal insufficiency, stage IV nephrology consultation clear for cardiac catheterization would avoid any additional iv fluids Strict I/Os FEN/GI: Morbid Obesity Acute liver injury- resolving. Lactic Acidosis- resolved Acute intravascular volume overloadl trend lactates daily CMP likely secondary to shock liver Heme/ID: Urinary tract infection Urine culture showing growth of E. coli patient has a subjective history of anaphylaxis to vancomycin patient has had MRSA and e.coli healthcare associated infections in the past Continue covering with Zosyn daily CBC Endocrine: Diabetes -- SSI Prophylaxis: GI Prophylaxis pepcid DVT Prophylaxis -- SCDs heparin drip for ACS Code Status: Full code Discharge Planning: Anticipate discharge home tomorrow 06/28/18 if cleared by cardiology (1) Coronary artery disease Qualifiers: Coronary Disease-Associated Artery/Lesion type: [place] artery [place] vs. transplanted heart: [place] heart Associated angina: with unstable angina Qualified Code(s): I25.110 - Atherosclerotic heart disease of [place] coronary artery with unstable angina pectoris
--- NOTE | 2018-06-27 12:53 | P.PNNP ---
Subjective Interval history: Patient with history of cardiomyopathy EF of 15%, ventricular fibrillation, AICD firing multiple times Status post heart catheterization, creatinine is worse Physical Exam Vital signs: Vital Signs 06/26/18 14:00 06/26/18 15:00 06/26/18 16:00 Temperature 98.1 F Pulse Rate 67 60 60 Respiratory Rate 15 Blood Pressure 100/65 Pulse Oximetry 97 06/26/18 17:00 06/26/18 17:45 06/26/18 18:00 Temperature Pulse Rate 61 62 Respiratory Rate Blood Pressure Pulse Oximetry 97 06/26/18 19:00 06/26/18 20:00 06/26/18 21:00 Temperature 97.6 F Pulse Rate 60 60 60 Respiratory Rate 20 Blood Pressure 107/60 Pulse Oximetry 98 06/26/18 22:00 06/26/18 23:00 06/27/18 00:00 Temperature 97.4 F L Pulse Rate 60 60 60 Respiratory Rate 16 Blood Pressure 111/56 L Pulse Oximetry 100 06/27/18 01:00 06/27/18 02:00 06/27/18 02:49 Temperature 98 F Pulse Rate 60 60 60 Respiratory Rate 16 Blood Pressure 113/64 Pulse Oximetry 98 06/27/18 03:00 06/27/18 04:00 06/27/18 05:00 Temperature Pulse Rate 53 L 60 60 Respiratory Rate Blood Pressure Pulse Oximetry 98 06/27/18 06:00 06/27/18 07:00 06/27/18 08:00 Temperature 97.9 F Pulse Rate 60 60 60 Respiratory Rate 18 Blood Pressure 103/58 L Pulse Oximetry 98 06/27/18 08:08 06/27/18 09:00 06/27/18 10:00 Temperature Pulse Rate 60 60 Respiratory Rate Blood Pressure Pulse Oximetry 96 06/27/18 11:00 06/27/18 12:00 Temperature 97.8 F Pulse Rate 60 60 Respiratory Rate 18 Blood Pressure 98/58 L Pulse Oximetry 98 Intake & Output 06/26/18 06/27/18 06/27/18 18:59 06:59 18:59 Intake Total 2245 / 2245 940 / 940 50 / 50 Output Total 250 / 250 400 / 400 Balance 1994 / 1994 540 / 540 50 / 50 Weight 148 kg Intake: IV 2004 700 / 700 50 / 50 Heparin/NS PF Inj 1,500 ML @ 0 5 / 5 mls/hr .ROUTE .STK-MED ONE Rx#: [id number] Cordarone Inj 450 MG In D5W Inj 100 / 100 241 ML @ 1 MG/MIN 33.33 mls/hr IV.CONT TITRATE PRN Rx#: [id number] NS Inj 500 ML @ 50 mls/hr IV. 1500 / 1500 CONT .Q10H NATALEE Rx#:[id number] Zyvox 600 mg Premix 300 ML @ 300 / 300 600 / 600 300 mls/hr IV.SIG Q12H NATALEE Rx#: [id number] Zosyn 3.375 GM Premix 50 ML @ 100 / 100 100 / 100 50 / 50 100 mls/hr IV.SIG Q6H NATALEE Rx#: [id number] Oral 240 / 240 240 / 240 Output: Urine 250 / 250 400 / 400 Other: Date of Last Bowel Movement 06/23/18 06/27/18 - Constitutional no acute distress - Routine HEENT Exam Eye: Present: PERRL - Routine Respiratory Exam Present: decreased breath sounds - Routine Cardiovascular Exam Present: RRR, irregular rhythm - Routine Abdominal Exam Present: soft, normoactive bowel sounds - Routine Extremities Exam Present: edema Assessment and Plan - Assessment (1) CKD (chronic kidney disease) stage 4, GFR 15-29 ml/min Code(s): N18.4 - Chronic kidney disease, stage 4 (severe) Status: Acute (2) Coronary artery disease Code(s): I25.10 - Atherosclerotic heart disease of [place] coronary artery without angina pectoris Status: Chronic Qualifiers: Coronary Disease-Associated Artery/Lesion type: [place] artery [place] vs. transplanted heart: [place] heart Associated angina: with unstable angina Qualified Code(s): I25.110 - Atherosclerotic heart disease of [place] coronary artery with unstable angina pectoris (3) Ventricular fibrillation Code(s): I49.01 - Ventricular fibrillation Status: Acute (4) Ischemic cardiomyopathy Code(s): I25.5 - Ischemic cardiomyopathy Status: Chronic - Plan heart catheterization done 30 cc of contrast used Creatinine worse today after heart catheterization need to be monitored closely Patient was told about hemodialysis in detail possibility of line placement, infection, bleeding, cramps, low blood pressure explained to her . Patient will continue to be on diuretic
[2018-06-27] MEDS: Insulin Detemir Inj 1,000 UNIT/10 ML Vial SQ SCH (21:52)
[2018-06-27] MEDS: Pantoprazole Inj 40 MG Vial IV.PUSH SCH (21:53)
[2018-06-28] MEDS: Sod Chloride 0.9% Inj 500 ML IV.CONT SCH ×3 (02:50→22:11)
[2018-06-28] MEDS: Chlorhexidine Gluconate 2% 1 Pack (2 Cloths) TOPICAL SCH (04:00)
[2018-06-28] MEDS: Piperacil/Tazo 3.375 GM Premix 50 ML IV.SIG SCH ×4 (04:37→21:07)
[2018-06-28 06:01] LABS: Hematocrit 30.5 % (35.0-46.0); Mean Corpuscular HGB Conc 32.8 % (32.0-36.0); Mean Corpuscular Hemoglobin 31.6 pg (27.0-34.0); Mean Corpuscular Volume 96.1 fL (80.0-100.0); Mean Platelet Volume 9.7 fL (7.0-11.0); Platelet Count 108 th/mm3 (150-450); Red Blood Count 3.18 mil/mm3 (4.00-5.30); Red Cell Distribution Width 15.4 % (11.6-17.2)
[2018-06-28 06:06] LABS: INR 2.5 Ratio; Prothrombin Time 25.3 sec (9.8-11.6)
[2018-06-28 06:25] LABS: Alanine Aminotransferase 53 U/L (10-53); Anion Gap 12 meq/L (5-15); Aspartate Aminotransferase 36 U/L (15-37); Blood Urea Nitrogen 59 mg/dL (7-18); Carbon Dioxide 26.5 meq/L (21.0-32.0); Chloride 104 meq/L (98-107); Glomerular Filtration Rate 13 mL/min (>89); Glucose,Random 95 mg/dL (74-106); Magnesium 2.1 mg/dL (1.5-2.5); Potassium 3.8 meq/L (3.5-5.1); Sodium 142 meq/L (136-145)
[2018-06-28 06:27] LABS: Alkaline Phosphatase 117 U/L (45-117); Phosphorus 3.9 mg/dL (2.5-4.9)
--- NOTE | 2018-06-28 07:48 | P.PNIM ---
Subjective Interval history: Patient seen and examined this morning. Afebrile vital signs stable. Patient reports that her nausea vomiting is greatly improved only feels mildly nauseated. Denies any chest pain or shortness of breath. Denies feeling like her heart is racing. From chart review the patient's creatinine continues to trend up. I explained this to the patient, she is being followed by nephrology and discharge is unlikely with continued acute kidney injury. Physical Exam Vital signs: Vital Signs 06/27/18 08:00 06/27/18 08:08 06/27/18 09:00 Temperature Pulse Rate 60 60 Respiratory Rate Blood Pressure Pulse Oximetry 96 06/27/18 10:00 06/27/18 11:00 06/27/18 12:00 Temperature 97.8 F Pulse Rate 60 60 60 Respiratory Rate 18 Blood Pressure 98/58 L Pulse Oximetry 98 06/27/18 13:00 06/27/18 14:00 06/27/18 15:00 Temperature 97.5 F L Pulse Rate 60 60 60 Respiratory Rate 18 Blood Pressure 102/46 L Pulse Oximetry 100 06/27/18 16:00 06/27/18 17:00 06/27/18 17:48 Temperature Pulse Rate 60 60 Respiratory Rate Blood Pressure Pulse Oximetry 100 06/27/18 18:00 06/27/18 19:00 06/27/18 20:00 Temperature 97.7 F Pulse Rate 60 60 60 Respiratory Rate 18 Blood Pressure 95/47 L Pulse Oximetry 95 06/27/18 21:00 06/27/18 22:00 06/27/18 23:00 Temperature 97.8 F Pulse Rate 48 L 57 L 60 Respiratory Rate 18 Blood Pressure 94/51 L Pulse Oximetry 98 06/28/18 00:00 06/28/18 01:00 06/28/18 02:00 Temperature Pulse Rate 60 60 60 Respiratory Rate Blood Pressure Pulse Oximetry 06/28/18 03:00 06/28/18 04:00 06/28/18 05:00 Temperature 97.8 F Pulse Rate 60 60 60 Respiratory Rate 18 Blood Pressure 94/51 L Pulse Oximetry 98 06/28/18 06:00 Temperature Pulse Rate 60 Respiratory Rate Blood Pressure Pulse Oximetry Intake & Output 06/27/18 06/28/18 06/28/18 18:59 06:59 18:59 Intake Total 1680 / 1680 840 / 840 300 / 300 Output Total 1999 / 1999 525 / 525 Balance -320 / -320 315 / 315 300 / 300 Weight 140.5 kg Intake: IV 400 / 400 600 / 600 300 / 300 NS Inj 500 ML @ 50 mls/hr IV. 0 / 0 500 / 500 CONT .Q10H NATALEE Rx#:[id number] Zyvox 600 mg Premix 300 ML @ 300 / 300 300 / 300 300 mls/hr IV.SIG Q12H NATALEE Rx#: [id number] Zosyn 3.375 GM Premix 50 ML @ 100 / 100 100 / 100 100 mls/hr IV.SIG Q6H NATALEE Rx#: [id number] Oral 480 / 480 240 / 240 Other 800 / 800 Output: Urine 500 / 500 525 / 525 Stool 1500 / 1500 Other: Other Intake Source Saline Solution Date of Last Bowel Movement 06/27/18 # Bowel Movements 1 Narrative: GEN: Well-developed, well-nourished obese patient. No acute distress. CV: Regular rate and rhythm without obvious murmurs LUNGS: Clear to auscultation bilaterally. Normal respiratory effort. No wheezes , rales, rhonchi. GI: Soft, nontender, nondistended. No palpable masses. Bowel sounds WNL. EXT: No edema. NEURO/PSYCH: Afocal. Awake, alert, and oriented x3. Appropriate insight and judgment. Results - Labs CBC & Chem 7: 06/28/18 04:41 06/28/18 04:41 Laboratory Results - last 24 hr 06/27/18 06/27/18 06/27/18 07:47 11:45 16:08 WBC RBC Hgb Hct MCV MCH MCHC RDW Plt Count MPV PT INR Sodium Potassium Chloride Carbon Dioxide Anion Gap BUN Creatinine Estimated GFR POC Glucose 156 H 206 H 143 H Random Glucose Calcium Phosphorus Magnesium Total Bilirubin AST ALT Alkaline Phosphatase B-Natriuretic Peptide Total Protein Albumin St C. diff Tox Epid 027 C. difficile (PCR) 06/27/18 06/27/18 06/28/18 19:30 21:46 04:41 WBC RBC Hgb Hct MCV MCH MCHC RDW Plt Count MPV PT INR Sodium 142 Potassium 3.8 Chloride 104 Carbon Dioxide 26.5 Anion Gap 12 BUN 59 H Creatinine 3.51 H Estimated GFR 13 L POC Glucose 155 H Random Glucose 95 Calcium 8.0 L Phosphorus 3.9 Magnesium 2.1 Total Bilirubin 0.5 AST 36 ALT 53 Alkaline Phosphatase 117 B-Natriuretic Peptide Total Protein 6.0 L D Albumin 2.[address] C[address] diff Tox Epid 027 Negative C. difficile (PCR) Negative 06/28/18 06/28/18 06/28/18 04:41 04:41 04:41 WBC 6.0 RBC 3.18 L Hgb 10.0 L Hct 30.5 L MCV 96.1 MCH 31.6 MCHC 32.8 RDW 15.4 Plt Count 108 L MPV 9.7 PT 25.3 H INR 2.5 Sodium Potassium Chloride Carbon Dioxide Anion Gap BUN Creatinine Estimated GFR POC Glucose Random Glucose Calcium Phosphorus Magnesium Total Bilirubin AST ALT Alkaline Phosphatase B-Natriuretic Peptide 310 H Total Protein Albumin St C. diff Tox Epid 027 C. difficile (PCR) Microbiology 06/24/18 10:35 Blood - Peripheral Aerobic Blood Culture - Preliminary No growth in 3 days 06/24/18 10:35 Blood - Peripheral Anaerobic Blood Culture - Preliminary No growth in 3 days 06/24/18 10:30 Blood - Peripheral Aerobic Blood Culture - Preliminary No growth in 3 days 06/24/18 10:30 Blood - Peripheral Anaerobic Blood Culture - Final Group B beta Strep - Procedures Cardiac catheterization Assessment and Plan - Assessment (1) Coronary artery disease Code(s): I25.10 - Atherosclerotic heart disease of [place] coronary artery without angina pectoris Status: Chronic (2) Ventricular fibrillation Code(s): I49.01 - Ventricular fibrillation Status: Acute (3) Ischemic cardiomyopathy Code(s): I25.5 - Ischemic cardiomyopathy Status: Chronic (4) Paroxysmal atrial fibrillation Code(s): I48.0 - Paroxysmal atrial fibrillation Status: Chronic (5) CKD (chronic kidney disease) stage 4, GFR 15-29 ml/min Code(s): N18.4 - Chronic kidney disease, stage 4 (severe) Status: Acute (6) UTI (urinary tract infection) due to Enterococcus Code(s): N39.0 - Urinary tract infection, site not specified; B95.2 - Enterococcus as the cause of diseases classified elsewhere Status: Acute (7) [id number]-ncebsts kidney injury Code(s): N17.9 - Acute kidney failure, unspecified; N18.9 - Chronic kidney disease, unspecified Status: Acute - Plan Assessment: 72yF with ischemic cardiomyopathy and a last known EF of ~30-35% who presents with symptoms concerning for acute coronary syndrome and 13 episodes of ventricular fibrillation s/p 10 AICD defibrillations. continue heparin, aspirin, trending troponins. now out of shock. Acute hypoxemia- resolving. Acute pulmonary edema secondary to CHF exacerbation forced diuresis wean o2 by nc for goal spo2 > 90% Cardiovascular: Acute coronary syndrome Acute NSTEMI Cardiogenic Shock- resolved Multiple episodes of ventricular fibrillation Ischemic cardiomyopathy, EF 30-35% Acute systolic heart failure exacerbation Status post cardiac catheterization, no new blockage found Continue amiodarone 400 mg daily which will be patient's new discharge dose P.o. Lasix once daily trend troponins: Slowly trended down lactate cleared. Cardiology consult: Dr. Baldo KRUEGER Renal: Chronic renal insufficiency, stage IV nephrology consultation clear for cardiac catheterization would avoid any additional iv fluids Strict I/Os FEN/GI: Morbid Obesity Acute liver injury- resolving. Lactic Acidosis- resolved Acute intravascular volume overloadl Creatinine continues to trend up, today is 3.5. We will continue to monitor the patient at this time. Nephrology consulted, recommendations appreciated trend lactates daily CMP likely secondary to shock liver Heme/ID: Urinary tract infection Urine culture showing growth of E. coli patient has a subjective history of anaphylaxis to vancomycin patient has had MRSA and e.coli healthcare associated infections in the past Continue covering with Zosyn daily CBC Endocrine: Diabetes -- SSI Prophylaxis: GI Prophylaxis pepcid DVT Prophylaxis -- SCDs heparin drip for ACS Code Status: Full code Discharge Planning: Discharge unlikely at this time due to continued worsening acute kidney injury, patient will require further medical management (1) Coronary artery disease Qualifiers: Coronary Disease-Associated Artery/Lesion type: [place] artery [place] vs. transplanted heart: [place] heart Associated angina: with unstable angina Qualified Code(s): I25.110 - Atherosclerotic heart disease of [place] coronary artery with unstable angina pectoris
[2018-06-28] MEDS: Insulin NovoLOG Aspart Correctional Sugar Inj SQ SCH ×4 (09:02→21:04)
[2018-06-28] MEDS: Amiodarone 200 MG Tablet PO SCH (09:03)
[2018-06-28] MEDS: Furosemide 40 MG Tablet PO SCH (09:03)
[2018-06-28] MEDS: Allopurinol 100 MG Tablet PO SCH (09:03)
[2018-06-28] MEDS: Calcitriol 0.25 MCG Capsule PO SCH (09:03)
[2018-06-28] MEDS: Pantoprazole Inj 40 MG Vial IV.PUSH SCH ×2 (09:04→21:01)
[2018-06-28] MEDS: Famotidine PF Inj 20 MG/2 ML Vial IV.PUSH SCH ×2 (09:04→21:07)
[2018-06-28] MEDS: Carvedilol 6.25 MG Tablet PO SCH (09:32)
[2018-06-28] MEDS ORDERED: Heparin 10,000 UNITS/10 ML Vial (for IV use) OTHER PRN (12:26)
[2018-06-28] MEDS ORDERED: Gelatin 12 MM/7 MM Topical Foam TOPICAL PRN (12:26)
[2018-06-28] MEDS ORDERED: Sodium Chlor 0.9% Inj 200 ML IV.SIG PRN (12:26)
[2018-06-28] MEDS ORDERED: Sod Chloride 0.9% Inj 1,000 ML OTHER PRN ×2 (12:26)
--- NOTE | 2018-06-28 12:30 | P.PNNP ---
Subjective Interval history: Patient is not feeling good, tired and lethargic shortness of breath urine output dropped, blood pressure low Physical Exam Vital signs: Vital Signs 06/27/18 13:00 06/27/18 14:00 06/27/18 15:00 Temperature 97.5 F L Pulse Rate 60 60 60 Respiratory Rate 18 Blood Pressure 102/46 L Pulse Oximetry 100 06/27/18 16:00 06/27/18 17:00 06/27/18 17:48 Temperature Pulse Rate 60 60 Respiratory Rate Blood Pressure Pulse Oximetry 100 06/27/18 18:00 06/27/18 19:00 06/27/18 20:00 Temperature 97.7 F Pulse Rate 60 60 60 Respiratory Rate 18 Blood Pressure 95/47 L Pulse Oximetry 95 06/27/18 21:00 06/27/18 22:00 06/27/18 23:00 Temperature 97.8 F Pulse Rate 48 L 57 L 60 Respiratory Rate 18 Blood Pressure 94/51 L Pulse Oximetry 98 06/28/18 00:00 06/28/18 01:00 06/28/18 02:00 Temperature Pulse Rate 60 60 60 Respiratory Rate Blood Pressure Pulse Oximetry 06/28/18 03:00 06/28/18 04:00 06/28/18 05:00 Temperature 97.8 F Pulse Rate 60 60 60 Respiratory Rate 18 Blood Pressure 94/51 L Pulse Oximetry 98 06/28/18 06:00 06/28/18 07:00 06/28/18 08:00 Temperature 97.5 F L Pulse Rate 60 60 60 Respiratory Rate 18 Blood Pressure 90/52 L Pulse Oximetry 94 L 06/28/18 09:00 06/28/18 10:00 06/28/18 11:00 Temperature 97.9 F Pulse Rate 60 60 60 Respiratory Rate 18 Blood Pressure 87/51 L Pulse Oximetry 94 L 06/28/18 11:34 Temperature Pulse Rate Respiratory Rate Blood Pressure Pulse Oximetry 93 L Intake & Output 06/27/18 06/28/18 06/28/18 18:59 06:59 18:59 Intake Total 1680 / 1680 840 / 840 350 / 350 Output Total 1999 525 / 525 Balance -320 / -320 315 / 315 350 / 350 Weight 140.5 kg Intake: IV 400 / 400 600 / 600 350 / 350 NS Inj 500 ML @ 50 mls/hr IV. 0 / 0 500 / 500 CONT .Q10H NAT[facility] Rx#:[id number] Zyvox 600 mg Premix 300 ML @ 300 / 300 300 / 300 300 mls/hr IV.SIG Q12H NAT[facility]EE Rx#: [id number] Zosyn 3.375 GM Premix 50 ML @ 100 / 100 100 / 100 50 / 50 100 mls/hr IV.SIG Q6H NATALEE Rx#: [id number] Oral 480 / 480 240 / 240 Other 800 / 800 Output: Urine 500 / 500 525 / 525 Stool 1500 / 1500 Other: Other Intake Source Saline Solution Date of Last Bowel Movement 06/27/18 06/28/18 # Bowel Movements 1 - Constitutional moderate distress - Routine HEENT Exam Head: Present: normocephalic Eye: Present: EOMI - Routine Respiratory Exam Present: decreased breath sounds, rales - Routine Cardiovascular Exam Present: irregular rhythm - Routine Abdominal Exam Present: soft, normoactive bowel sounds - Routine Extremities Exam Present: edema Assessment and Plan - Assessment (1) CKD (chronic kidney disease) stage 4, GFR 15-29 ml/min Code(s): N18.4 - Chronic kidney disease, stage 4 (severe) Status: Acute (2) Coronary artery disease Code(s): I25.10 - Atherosclerotic heart disease of [place] coronary artery without angina pectoris Status: Chronic Qualifiers: Qualified Code(s): I25.110 - Atherosclerotic heart disease of [place] coronary artery with unstable angina pectoris (3) Ventricular fibrillation Code(s): I49.01 - Ventricular fibrillation Status: Acute (4) Ischemic cardiomyopathy Code(s): I25.5 - Ischemic cardiomyopathy Status: Chronic - Plan heart catheterization done 30 cc of contrast used Creatinine worse today after heart catheterization Patient was told about hemodialysis in detail possibility of line placement, infection, bleeding, cramps, low blood pressure explained to her . Patient agreed to start hemodialysis We will request Vas-Cath and arrange hemodialysis later Discussed with staff and patient
[2018-06-28] MEDS ORDERED: Sodium Chlor 0.9% Inj 500 ML IV.SIG SCH (13:30)
[2018-06-28 16:07] LABS: Hepatitis A IgM Antibody Nonreactive (Nonreactive)
[2018-06-28 16:08] LABS: Hepatitits B Surface Antigen Nonreactive (Nonreactive)
[2018-06-28] MEDS ORDERED: *Heparin 10,000 UNITS/10 ML Vial Periprocedural ONLY ONE (17:00)
[2018-06-28] MEDS ORDERED: Heparin Central Flush 100 UNIT/ML 5 ML Vial IV.FLUSH PRN (17:31)
[2018-06-28] MEDS ORDERED: Heparin 10,000 UNITS/10 ML Vial (for IV use) IV.FLUSH ONE (17:32)
--- NOTE | 2018-06-28 18:03 | IR ---
EXAM DATE: 06/28/2018 5:56 PM EDT AGE/SEX: 72 years / Female INDICATIONS: Patient has ESRD and requires emergency dialysis. CLINICAL DATA: This is the patient's initial encounter. Patient reports that signs and symptoms have been present for 3 days and indicates a pain score of 5/10. MEDICAL/SURGICAL HISTORY: Hypertension. Tired, lethargic, short of breath, decrease urine outpu t, CAD, Atrial fibrillation, ischemic cardiomyopathy, CHF, diabetes. Defibrillator. COMPARISON: No prior exams available for comparison. FLUORO TIME (min): 0.31 IMAGE SERIES: 1 ACCESS SITE: Right femoral vein DEVICE(S): 14 [place] double lumen Schon catheter . . PROCEDURE : 1. Ultrasound guided venipuncture. 2. Fluoroscopic guidance. 3. Central line placement. The risks, benefits and alternatives to the procedure were explained and verbal and written consent w as obtained. The site was prepped in sterile fashion. Full sterile technique was used, including ca p, mask, sterile gloves and gown and a large sterile sheet. Hand hygiene and 2% chlorhexidine prep w as utilized per protocol for cutaneous antisepsis with appropriate dry time for site. Sterile gel an d sterile probe cover were utilized for ultrasound guidance. The skin and subcutaneous tissues were infiltrated with local anesthetic solution. A suitable site a rojelio the vein was selected with ultrasound and fluoroscopic guidance. A small incision was made. Th e vein was accessed under direct ultrasound visualization using the micropuncture technique. The he ropuncture set was exchanged for a 0.035 wire. The tract was dilated. The catheter was advanced int o position under direct fluoroscopic visualization, and was advanced with the tip at the junction of the superior vena cava and rt atrium. The catheter was fixed in place with suture and a sterile dres sing was applied. The patient tolerated the procedure well and there were no complications. CONCLUSION: Uncomplicated ultrasound and fluoroscopic guided central venous dialysis catheter placement as above. Electronically signed by: Anibal Schmidt MD 06/28/2018 6:02 PM EDT
[2018-06-28] MEDS: Albumin Human 25% Inj 100 ML IV.SIG PRN (18:16)
[2018-06-28] MEDS: Heparin 10,000 UNITS/10 ML Vial (for IV use) OTHER PRN (18:18)
[2018-06-28] MEDS: Epoetin Alfa Inj 4,000 UNIT/ML Vial IV.PUSH PRN (18:24)
[2018-06-28] MEDS: Insulin Detemir Inj 1,000 UNIT/10 ML Vial SQ SCH (21:03)
--- NOTE | 2018-06-28 21:58 | ECG ---
Date Performed: 06/27/2018 Time Performed: 08:01:32 PTAGE: 72 years EKG: Ventricular pacing Pacemaker rhythm - no further analysis Abnormal ECG PREVIOUS TRACING : 06/24/2018 10.49 Since the previous tracing, no significant change noted DOCTOR: Gregg Le Interpretating Date/Time 06/28/2018 21:57:20
[2018-06-29] MEDS: Piperacil/Tazo 3.375 GM Premix 50 ML IV.SIG SCH ×2 (03:00→12:10)
[2018-06-29] MEDS: Chlorhexidine Gluconate 2% 1 Pack (2 Cloths) TOPICAL SCH (03:10)
[2018-06-29 06:27] LABS: Hemoglobin 10.7 gm/dL (11.6-15.3); Mean Corpuscular HGB Conc 33.3 % (32.0-36.0); Mean Corpuscular Hemoglobin 31.1 pg (27.0-34.0); Mean Corpuscular Volume 93.2 fL (80.0-100.0); Mean Platelet Volume 9.4 fL (7.0-11.0); Platelet Count 146 th/mm3 (150-450); Red Blood Count 3.43 mil/mm3 (4.00-5.30); Red Cell Distribution Width 15.4 % (11.6-17.2); White Blood Count 6.7 th/mm3 (4.0-11.0)
[2018-06-29 06:37] LABS: INR 3.4 Ratio; Prothrombin Time 34.3 sec (9.8-11.6)
[2018-06-29 07:15] LABS: Alanine Aminotransferase 48 U/L (10-53); Albumin 2.7 g/dL (3.4-5.0); Anion Gap 12 meq/L (5-15); Blood Urea Nitrogen 46 mg/dL (7-18); Calcium 8.6 mg/dL (8.5-10.1); Carbon Dioxide 27.2 meq/L (21.0-32.0); Chloride 100 meq/L (98-107); Glomerular Filtration Rate 12 mL/min (>89); Glucose,Random 126 mg/dL (74-106); Phosphorus 3.6 mg/dL (2.5-4.9); Potassium 3.6 meq/L (3.5-5.1); Sodium 139 meq/L (136-145)
[2018-06-29 08:05] LABS: Alkaline Phosphatase 139 U/L (45-117); Aspartate Aminotransferase 27 U/L (15-37); Total Protein 6.7 g/dL (6.4-8.2)
[2018-06-29] MEDS: Insulin NovoLOG Aspart Correctional Sugar Inj SQ SCH ×4 (08:24→20:55)
[2018-06-29] MEDS: Furosemide 40 MG Tablet PO SCH (08:25)
[2018-06-29] MEDS: Amiodarone 200 MG Tablet PO SCH (08:25)
[2018-06-29] MEDS: Pantoprazole Inj 40 MG Vial IV.PUSH SCH ×2 (08:25→20:56)
[2018-06-29] MEDS: Allopurinol 100 MG Tablet PO SCH (08:25)
[2018-06-29] MEDS: Calcitriol 0.25 MCG Capsule PO SCH (08:25)
[2018-06-29] MEDS: Famotidine PF Inj 20 MG/2 ML Vial IV.PUSH SCH ×2 (08:29→20:56)
--- NOTE | 2018-06-29 08:57 | P.PN ---
Subjective Interval history: This is a pleasant 72 y/o Female Patient with ischemic Cardiomyopathy last known EF 30 to 35%, who came to ER with symptoms of ACS and 13 episodes of Ventricular fibrillation, status post 10 AICD defibrillations, Seen while in Hemodialysis stable, obese patient in no acute distress, no nausea , vomit or diarrhea. Physical Exam Vital signs: Vital Signs 06/28/18 09:00 06/28/18 10:00 06/28/18 11:00 Temperature 97.9 F Pulse Rate 60 60 60 Respiratory Rate 18 Blood Pressure 87/51 L Pulse Oximetry 94 L 06/28/18 11:34 06/28/18 12:00 06/28/18 13:00 Temperature Pulse Rate 60 60 Respiratory Rate Blood Pressure Pulse Oximetry 93 L 06/28/18 14:00 06/28/18 15:00 06/28/18 16:00 Temperature 97.9 F Pulse Rate 95 H 60 60 Respiratory Rate 18 Blood Pressure 89/52 L Pulse Oximetry 95 06/28/18 17:00 06/28/18 20:00 06/28/18 22:00 Temperature 97.5 F L Pulse Rate 60 78 60 Respiratory Rate 20 Blood Pressure 118/56 L Pulse Oximetry 94 L 06/28/18 23:00 06/29/18 00:00 06/29/18 01:00 Temperature 97.1 F L Pulse Rate 60 60 60 Respiratory Rate 20 Blood Pressure 108/51 L Pulse Oximetry 94 L 06/29/18 02:00 06/29/18 03:00 06/29/18 04:00 Temperature 97.7 F Pulse Rate 60 60 60 Respiratory Rate 16 Blood Pressure 119/65 Pulse Oximetry 94 L 06/29/18 05:00 06/29/18 06:00 06/29/18 07:00 Temperature 97.6 F Pulse Rate 60 60 60 Respiratory Rate 17 Blood Pressure 112/61 Pulse Oximetry 96 06/29/18 08:00 Temperature Pulse Rate 64 Respiratory Rate Blood Pressure Pulse Oximetry 94 L Intake & Output 06/28/18 06/29/18 06/29/18 18:59 06:59 18:59 Intake Total 1330 / 1330 1040 / 1040 Output Total 700 / 700 1200 / 1200 Balance 630 / 630 -160 / -160 Weight 140.5 kg Intake: IV 850 / 850 800 / 800 Flexbumin 25% Inj 100 ML @ 60 100 / 100 mls/hr IV.SIG WITH DIALYSIS PRN Rx#:[id number] Zyvox 600 mg Premix 300 ML @ 300 / 300 600 / 600 300 mls/hr IV.SIG Q12H NAT[facility]EE Rx#: [id number] Zosyn 3.375 GM Premix 50 ML @ 50 / 50 100 / 100 100 mls/hr IV.SIG Q6H NAT[facility]EE Rx#: [id number] NS Inj 500 ML @ 100 mls/hr IV. 500 / 500 SIG .Q5H NATALEE Rx#:[id number] Oral 480 / 480 240 / 240 Output: Urine 200 / 200 200 / 200 Stool 500 / 500 Hemodialysis Amount 1000 / 1000 Other: Date of Last Bowel Movement 06/28/18 06/29/18 # Bowel Movements 2 Narrative: GENERAL: Morbid Obese, Well-developed patient, in no apparent distress. CARDIOVASCULAR: Regular rate and rhythm without murmurs, gallops, or rubs. RESPIRATORY: Clear to auscultation. Breath sounds equal bilaterally. No wheezes , rales, or rhonchi. GASTROINTESTINAL: Abdomen soft, non-tender, nondistended. Normal active bowel sounds MUSCULOSKELETAL: Extremities without clubbing, cyanosis, or edema. NEURO: Alert & Oriented x4 to person, place, time, situation. Moves all ext x4 Results - Labs CBC & Chem 7: 06/29/18 05:38 06/29/18 05:38 Laboratory Results - last 24 hr 06/28/18 06/28/18 06/28/18 11:31 13:15 15:24 WBC RBC Hgb Hct MCV MCH MCHC RDW Plt Count MPV PT INR Sodium Potassium Chloride Carbon Dioxide Anion Gap BUN Creatinine Estimated GFR POC Glucose 157 H 142 H Random Glucose Calcium Phosphorus Magnesium Total Bilirubin AST ALT Alkaline Phosphatase Total Protein Albumin Hepatitis A IgM Ab Nonreactive Hep Bs Antigen Nonreactive Hep B Core IgM Ab Nonreactive Hep C IgG Ab Nonreactive 06/28/18 06/28/18 06/29/18 19:46 20:39 05:38 WBC RBC Hgb Hct MCV MCH MCHC RDW Plt Count MPV PT 34.3 H INR 3.4 Sodium Potassium Chloride Carbon Dioxide Anion Gap BUN Creatinine Estimated GFR POC Glucose 101 109 Random Glucose Calcium Phosphorus Magnesium Total Bilirubin AST ALT Alkaline Phosphatase Total Protein Albumin Hepatitis A IgM Ab Hep Bs Antigen Hep B Core IgM Ab Hep C IgG Ab 0806/29/18 06/29/18 05:38 05:38 08:02 WBC 6.7 RBC 3.43 L Hgb 10.7 L Hct 32.0 L MCV 93.2 MCH 31.1 MCHC 33.3 RDW 15.4 Plt Count 146 L D MPV 9.4 PT INR Sodium 139 Potassium 3.6 Chloride 100 Carbon Dioxide 27.2 Anion Gap 12 BUN 46 H Creatinine 3.63 H Estimated GFR 12 L POC Glucose 183 H Random Glucose 126 H Calcium 8.6 Phosphorus 3.6 Magnesium 2.0 Total Bilirubin 0.7 AST 27 ALT 48 Alkaline Phosphatase 139 H Total Protein 6.7 D Albumin 2.7 L D Hepatitis A IgM Ab Hep Bs Antigen Hep B Core IgM Ab Hep C IgG Ab Microbiology 06/24/18 10:35 Blood - Peripheral Aerobic Blood Culture - Preliminary No growth in 4 days 06/24/18 10:35 Blood - Peripheral Anaerobic Blood Culture - Preliminary No growth in 4 days 06/24/18 10:30 Blood - Peripheral Aerobic Blood Culture - Preliminary No growth in 4 days 06/24/18 10:30 Blood - Peripheral Anaerobic Blood Culture - Final Group B beta Strep - Imaging Impressions Catheter Placement 06/28/18 00:00 CONCLUSION: Uncomplicated ultrasound and fluoroscopic guided central venous dialysis catheter placement as above. - Procedures Cardiac catheterization Assessment and Plan - Assessment (1) Coronary artery disease Code(s): I25.10 - Atherosclerotic heart disease of [place] coronary artery without angina pectoris Status: Chronic (2) Ventricular fibrillation Code(s): I49.01 - Ventricular fibrillation Status: Acute (3) Ischemic cardiomyopathy Code(s): I25.5 - Ischemic cardiomyopathy Status: Chronic (4) Paroxysmal atrial fibrillation Code(s): I48.0 - Paroxysmal atrial fibrillation Status: Chronic (5) CKD (chronic kidney disease) stage 4, GFR 15-29 ml/min Code(s): N18.4 - Chronic kidney disease, stage 4 (severe) Status: Acute (6) UTI (urinary tract infection) due to Enterococcus Code(s): N39.0 - Urinary tract infection, site not specified; B95.2 - Enterococcus as the cause of diseases classified elsewhere Status: Acute (7) Hytss-wh-xtlnbge kidney injury Code(s): N17.9 - Acute kidney failure, unspecified; N18.9 - Chronic kidney disease, unspecified Status: Acute - Plan Assessment: 72yF with ischemic cardiomyopathy and a last known EF of ~30-35% who presents with symptoms concerning for acute coronary syndrome and 13 episodes of ventricular fibrillation s/p 10 AICD defibrillations. continue heparin, aspirin, trending troponin. now out of shock. 1. Acute Hypoxemia resolving Acute pulmonary edema secondary to CHF exacerbation, Diuresed and using oxygen to goal >90% 2. Acute coronary syndrome/Acute NSTEMI/Cardiogenic Shock-resolved Multiple episodes of Ventricular fibrillation Ischemic cardiomyopathy EF 30-35% Acute systolic heart failure exacerbation Status post Cardiac catheterization no new blockade found, Amiodarone 400 mg daily, Lasix, Aspirin 3. CKD IV Nephrology specialist following 4. Morbid obesity/Acute liver injury resolving/Lactic acidosis resolved/Acute intravascular volume overload 5. Urinary tract infection secondary to E coli, Zosyn daily CBC 6. DM II on sliding scale GI prophylaxis with Pepcid DVT prophylaxis with heparin drip Code Status: full code Discussed Condition With: Patient and Nurse Miss Berger Discharge Planning: Discharge unlikely at this time due to continued worsening acute kidney injury, patient will require further medical management (1) Coronary artery disease Qualifiers: Coronary Disease-Associated Artery/Lesion type: [place] artery [place] vs. transplanted heart: [place] heart Associated angina: with unstable angina Qualified Code(s): I25.110 - Atherosclerotic heart disease of [place] coronary artery with unstable angina pectoris
[2018-06-29] MEDS: Heparin 10,000 UNITS/10 ML Vial (for IV use) OTHER PRN (09:26)
[2018-06-29] MEDS: Albumin Human 25% Inj 100 ML IV.SIG PRN (10:47)
[2018-06-29] MEDS: Piperacil/Tazo 2.25 GM Premix 50 ML IV.SIG SCH ×2 (16:27→21:03)
--- NOTE | 2018-06-29 17:44 | P.PNNP ---
Subjective Interval history: Patient feels tired Physical Exam Vital signs: Vital Signs 06/28/18 20:00 06/28/18 22:00 06/28/18 23:00 Temperature 97.5 F L 97.1 F L Pulse Rate 78 60 60 Respiratory Rate 20 20 Blood Pressure 118/56 L 108/51 L Pulse Oximetry 94 L 94 L 06/29/18 00:00 06/29/18 01:00 06/29/18 02:00 Temperature Pulse Rate 60 60 60 Respiratory Rate Blood Pressure Pulse Oximetry 06/29/18 03:00 06/29/18 04:00 06/29/18 05:00 Temperature 97.7 F Pulse Rate 60 60 60 Respiratory Rate 16 Blood Pressure 119/65 Pulse Oximetry 94 L 06/29/18 06:00 06/29/18 07:00 06/29/18 08:00 Temperature 97.6 F Pulse Rate 60 60 64 Respiratory Rate 17 Blood Pressure 112/61 Pulse Oximetry 96 94 L 06/29/18 09:00 06/29/18 11:00 06/29/18 12:00 Temperature 97.5 F L Pulse Rate 55 L 64 67 Respiratory Rate 17 Blood Pressure 117/67 Pulse Oximetry 92 L 06/29/18 13:00 Temperature Pulse Rate 90 Respiratory Rate Blood Pressure Pulse Oximetry Intake & Output 06/28/18 06/29/18 06/29/18 18:59 06:59 18:59 Intake Total 1330 / 1330 1040 / 1040 150 / 150 Output Total 700 / 700 1200 / 1200 1500 / 1500 Balance 630 / 630 -160 / -160 -1350 / -1350 Weight 140.5 kg Intake: IV 850 / 850 800 / 800 150 / 150 Flexbumin 25% Inj 100 ML @ 60 100 / 100 100 / 100 mls/hr IV.SIG WITH DIALYSIS PRN Rx#:[id number] Zyvox 600 mg Premix 300 ML @ 300 / 300 600 / 600 300 mls/hr IV.SIG Q12H NATALEE Rx#: [id number] Zosyn 3.375 GM Premix 50 ML @ 50 / 50 100 / 100 50 / 50 100 mls/hr IV.SIG Q6H NATALEE Rx#: [id number] NS Inj 500 ML @ 100 mls/hr IV. 500 / 500 SIG .Q5H NATALEE Rx#:[id number] Oral 480 / 480 240 / 240 Output: Urine 200 / 200 200 / 200 Stool 500 / 500 Hemodialysis Amount 1000 / 1000 1500 / 1500 Other: Date of Last Bowel Movement 06/28/18 06/29/18 # Bowel Movements 2 - Constitutional no acute distress - Routine HEENT Exam Head: Present: normocephalic Eye: Present: EOMI - Routine Neck Exam Present: supple - Routine Respiratory Exam Present: decreased breath sounds - Routine Cardiovascular Exam Present: RRR - Routine Abdominal Exam Present: soft, normoactive bowel sounds - Routine Extremities Exam Present: edema Assessment and Plan - Assessment (1) CKD (chronic kidney disease) stage 4, GFR 15-29 ml/min Code(s): N18.4 - Chronic kidney disease, stage 4 (severe) Status: Acute (2) Coronary artery disease Code(s): I25.10 - Atherosclerotic heart disease of [place] coronary artery without angina pectoris Status: Chronic Qualifiers: Coronary Disease-Associated Artery/Lesion type: [place] artery [place] vs. transplanted heart: [place] heart Associated angina: with unstable angina Qualified Code(s): I25.110 - Atherosclerotic heart disease of [place] coronary artery with unstable angina pectoris (3) Ventricular fibrillation Code(s): I49.01 - Ventricular fibrillation Status: Acute (4) Ischemic cardiomyopathy Code(s): I25.5 - Ischemic cardiomyopathy Status: Chronic - Plan heart catheterization done 30 cc of contrast used Patient on hemodialysis 1.5 L removed today Tolerated well, possibility of long-term dialysis discussed
[2018-06-29] MEDS: Sod Chloride 0.9% Inj 500 ML IV.CONT SCH (20:54)
[2018-06-29] MEDS: Insulin Detemir Inj 1,000 UNIT/10 ML Vial SQ SCH (20:55)
[2018-06-30] MEDS: Piperacil/Tazo 2.25 GM Premix 50 ML IV.SIG SCH ×4 (04:02→22:05)
[2018-06-30 05:51] LABS: Hematocrit 34.3 % (35.0-46.0); Hemoglobin 11.2 gm/dL (11.6-15.3); Mean Corpuscular HGB Conc 32.8 % (32.0-36.0); Mean Corpuscular Hemoglobin 30.6 pg (27.0-34.0); Mean Corpuscular Volume 93.2 fL (80.0-100.0); Platelet Count 164 th/mm3 (150-450); Red Blood Count 3.68 mil/mm3 (4.00-5.30); Red Cell Distribution Width 15.3 % (11.6-17.2); White Blood Count 7.2 th/mm3 (4.0-11.0)
[2018-06-30 05:58] LABS: INR 4.6 Ratio; Prothrombin Time 46.2 sec (9.8-11.6)
[2018-06-30 06:18] LABS: Albumin 2.9 g/dL (3.4-5.0); Anion Gap 14 meq/L (5-15); Aspartate Aminotransferase 67 U/L (15-37); Blood Urea Nitrogen 43 mg/dL (7-18); Calcium 8.7 mg/dL (8.5-10.1); Carbon Dioxide 24.8 meq/L (21.0-32.0); Chloride 100 meq/L (98-107); Glomerular Filtration Rate 13 mL/min (>89); Glucose,Random 132 mg/dL (74-106); Magnesium 2.3 mg/dL (1.5-2.5); Potassium 3.8 meq/L (3.5-5.1); Sodium 139 meq/L (136-145)
[2018-06-30 06:24] LABS: Alanine Aminotransferase 77 U/L (10-53); Alkaline Phosphatase 129 U/L (45-117); Phosphorus 3.4 mg/dL (2.5-4.9); Total Protein 6.9 g/dL (6.4-8.2)
--- NOTE | 2018-06-30 09:16 | P.PN ---
Subjective Interval history: This is a pleasant 72 y/o Female Patient with ischemic Cardiomyopathy last known EF 30 to 35%, who came to ER with symptoms of ACS and 13 episodes of Ventricular fibrillation, status post 10 AICD defibrillations, 06/30: Seen in her bedroom early in am no nausea, vomit or diarrhea discussed with nurse Miss Leavitt no complaint by patient. Physical Exam Vital signs: Vital Signs 06/29/18 11:00 06/29/18 12:00 06/29/18 13:00 Temperature 97.5 F L Pulse Rate 64 67 90 Respiratory Rate 17 Blood Pressure 117/67 Pulse Oximetry 92 L 06/29/18 14:00 06/29/18 15:00 06/29/18 16:00 Temperature 97.5 F L Pulse Rate 78 59 L 62 Respiratory Rate 17 Blood Pressure 117/62 Pulse Oximetry 95 06/29/18 17:00 06/29/18 18:00 06/29/18 19:00 Temperature 98.2 F Pulse Rate 62 58 L 59 L Respiratory Rate 18 Blood Pressure 114/66 Pulse Oximetry 95 06/29/18 20:00 06/29/18 20:08 06/29/18 21:00 Temperature Pulse Rate 58 L 57 L Respiratory Rate Blood Pressure Pulse Oximetry 96 06/29/18 22:00 06/29/18 23:00 06/30/18 00:00 Temperature 97.8 F Pulse Rate 60 58 L 60 Respiratory Rate 20 Blood Pressure 139/71 Pulse Oximetry 96 06/30/18 01:00 06/30/18 02:00 06/30/18 03:00 Temperature 97.4 F L Pulse Rate 59 L 60 59 L Respiratory Rate 20 Blood Pressure 128/67 Pulse Oximetry 95 06/30/18 04:00 06/30/18 04:03 06/30/18 05:00 Temperature Pulse Rate 59 L 59 L 60 Respiratory Rate Blood Pressure Pulse Oximetry 06/30/18 06:00 06/30/18 07:00 06/30/18 08:00 Temperature 97.5 F L Pulse Rate 59 L 59 L 59 L Respiratory Rate 16 Blood Pressure 130/69 Pulse Oximetry 06/30/18 08:46 Temperature Pulse Rate Respiratory Rate Blood Pressure Pulse Oximetry 93 L Intake & Output 06/29/18 06/30/18 06/30/18 18:59 06:59 18:59 Intake Total 1120 / 1120 978 / 978 Output Total 1820 / 1820 310 / 310 Balance -700 / -700 668 / 668 Intake: IV 700 / 700 798 / 798 NS Inj 500 ML @ 50 mls/hr IV. 500 / 500 398 / 398 CONT .Q10H NATALEE Rx#:[id number] Flexbumin 25% Inj 100 ML @ 60 100 / 100 mls/hr IV.SIG WITH DIALYSIS PRN Rx#:[id number] Zyvox 600 mg Premix 300 ML @ 300 / 300 300 mls/hr IV.SIG Q12H NATALEE Rx#: [id number] Zosyn 2.25 GM Premix 50 ML @ 50 / 50 100 / 100 100 mls/hr IV.SIG Q6H NATALEE Rx#: [id number] Zosyn 3.375 GM Premix 50 ML @ 50 / 50 100 mls/hr IV.SIG Q6H NATALEE Rx#: [id number] Oral 420 / 420 180 / 180 Output: Urine 320 / 320 300 / 300 Emesis / 10 Hemodialysis Amount 1500 / 1500 Other: # Voids 2 Date of Last Bowel Movement 06/29/18 06/29/18 # Bowel Movements 1 Narrative: GENERAL: Morbid Obese, Well-developed patient, in no apparent distress. CARDIOVASCULAR: Regular rate and rhythm without murmurs, gallops, or rubs. RESPIRATORY: Clear to auscultation. Breath sounds equal bilaterally. No wheezes , rales, or rhonchi. GASTROINTESTINAL: Abdomen soft, non-tender, nondistended. Normal active bowel sounds MUSCULOSKELETAL: Extremities without clubbing, cyanosis, or edema. NEURO: Alert & Oriented x4 to person, place, time, situation. Moves all ext x4 Results - Labs CBC & Chem 7: 06/30/18 04:52 06/30/18 04:52 Laboratory Results - last 24 hr 06/29/18 06/29/18 06/29/18 11:28 13:07 16:29 WBC RBC Hgb Hct MCV MCH MCHC RDW Plt Count MPV PT INR Sodium Potassium Chloride Carbon Dioxide Anion Gap BUN Creatinine Estimated GFR POC Glucose 99 116 H 130 H Random Glucose Calcium Phosphorus Magnesium Total Bilirubin AST ALT Alkaline Phosphatase Total Protein Albumin 06/29/18 06/30/18 06/30/18 20:30 04:52 04:52 WBC RBC Hgb Hct MCV MCH MCHC RDW Plt Count MPV PT 46.2 H D INR 4.6 Sodium 139 Potassium 3.8 Chloride 100 Carbon Dioxide 24.8 Anion Gap 14 BUN 43 H Creatinine 3.56 H Estimated GFR 13 L POC Glucose 146 H Random Glucose 132 H Calcium 8.7 Phosphorus 3.4 Magnesium 2.3 Total Bilirubin 0.7 AST 67 H ALT 77 H Alkaline Phosphatase 129 H Total Protein 6.9 Albumin 2.9 L 06/30/18 06/30/18 04:52 07:57 WBC 7.2 RBC 3.68 L Hgb 11.2 L Hct 34.3 L MCV 93.2 MCH 30.6 MCHC 32.8 RDW 15.3 Plt Count 164 MPV 9.0 PT INR Sodium Potassium Chloride Carbon Dioxide Anion Gap BUN Creatinine Estimated GFR POC Glucose 195 H Random Glucose Calcium Phosphorus Magnesium Total Bilirubin AST ALT Alkaline Phosphatase Total Protein Albumin Microbiology 06/24/18 10:35 Blood - Peripheral Aerobic Blood Culture - Final No growth in 5 days 06/24/18 10:35 Blood - Peripheral Anaerobic Blood Culture - Final No growth in 5 days 06/24/18 10:30 Blood - Peripheral Aerobic Blood Culture - Final No growth in 5 days 06/24/18 10:30 Blood - Peripheral Anaerobic Blood Culture - Final Group B beta Strep - Procedures Cardiac catheterization Assessment and Plan - Assessment (1) Coronary artery disease Code(s): I25.10 - Atherosclerotic heart disease of [place] coronary artery without angina pectoris Status: Chronic (2) Ventricular fibrillation Code(s): I49.01 - Ventricular fibrillation Status: Acute (3) Ischemic cardiomyopathy Code(s): I25.5 - Ischemic cardiomyopathy Status: Chronic (4) Paroxysmal atrial fibrillation Code(s): I48.0 - Paroxysmal atrial fibrillation Status: Chronic (5) CKD (chronic kidney disease) stage 4, GFR 15-29 ml/min Code(s): N18.4 - Chronic kidney disease, stage 4 (severe) Status: Acute (6) UTI (urinary tract infection) due to Enterococcus Code(s): N39.0 - Urinary tract infection, site not specified; B95.2 - Enterococcus as the cause of diseases classified elsewhere Status: Acute (7) Hrihl-un-haybkzw kidney injury Code(s): N17.9 - Acute kidney failure, unspecified; N18.9 - Chronic kidney disease, unspecified Status: Acute - Plan Assessment: 72yF with ischemic cardiomyopathy and a last known EF of ~30-35% who presents with symptoms concerning for acute coronary syndrome and 13 episodes of ventricular fibrillation s/p 10 AICD defibrillations. continue heparin, aspirin, trending troponin. now out of shock. 1. Acute Hypoxemia resolving Acute pulmonary edema secondary to CHF exacerbation, Diuresed and using oxygen to goal >90% 2. Acute coronary syndrome/Acute NSTEMI/Cardiogenic Shock-resolved Multiple episodes of Ventricular fibrillation Ischemic cardiomyopathy EF 30-35% Acute systolic heart failure exacerbation Status post Cardiac catheterization no new blockade found, Amiodarone 400 mg daily, Lasix, Aspirin 3. CKD IV on Hemodialysis since three days ago next HD for tomorrow. 4. Morbid obesity/Acute liver injury resolving/Lactic acidosis resolved/Acute intravascular volume overload 5. Urinary tract infection secondary to E coli, Zosyn daily CBC 6. DM II on sliding scale, adjusted Levemir to 25 units GI prophylaxis with Pepcid DVT prophylaxis with heparin Code Status: Full Code. Discussed Condition With: Patient and Nurse Miss Leavitt Discharge Planning: Discharge unlikely at this time due to continued worsening acute kidney injury, patient will require further medical management (1) Coronary artery disease Qualifiers: Coronary Disease-Associated Artery/Lesion type: [place] artery [place] vs. transplanted heart: [place] heart Associated angina: with unstable angina Qualified Code(s): I25.110 - Atherosclerotic heart disease of [place] coronary artery with unstable angina pectoris
[2018-06-30] MEDS: Calcitriol 0.25 MCG Capsule PO SCH (09:21)
[2018-06-30] MEDS: Insulin NovoLOG Aspart Correctional Sugar Inj SQ SCH ×3 (09:21→16:36)
[2018-06-30] MEDS: Amiodarone 200 MG Tablet PO SCH (09:22)
[2018-06-30] MEDS: Famotidine PF Inj 20 MG/2 ML Vial IV.PUSH SCH ×2 (09:22→22:03)
[2018-06-30] MEDS: Furosemide 40 MG Tablet PO SCH (09:22)
[2018-06-30] MEDS: Allopurinol 100 MG Tablet PO SCH (09:22)
[2018-06-30] MEDS: Pantoprazole Inj 40 MG Vial IV.PUSH SCH ×2 (09:23→22:04)
--- NOTE | 2018-06-30 17:44 | P.PNNP ---
Subjective Interval history: Patient is stable Physical Exam Vital signs: Vital Signs 06/29/18 18:00 06/29/18 19:00 06/29/18 20:00 Temperature 98.2 F Pulse Rate 58 L 59 L 58 L Respiratory Rate 18 Blood Pressure 114/66 Pulse Oximetry 95 06/29/18 20:08 06/29/18 21:00 06/29/18 22:00 Temperature Pulse Rate 57 L 60 Respiratory Rate Blood Pressure Pulse Oximetry 96 06/29/18 23:00 06/30/18 00:00 06/30/18 01:00 Temperature 97.8 F Pulse Rate 58 L 60 59 L Respiratory Rate 20 Blood Pressure 139/71 Pulse Oximetry 96 06/30/18 02:00 06/30/18 03:00 06/30/18 04:00 Temperature 97.4 F L Pulse Rate 60 59 L 59 L Respiratory Rate 20 Blood Pressure 128/67 Pulse Oximetry 95 06/30/18 04:03 06/30/18 05:00 06/30/18 06:00 Temperature Pulse Rate 59 L 60 59 L Respiratory Rate Blood Pressure Pulse Oximetry 06/30/18 07:00 06/30/18 08:00 06/30/18 08:46 Temperature 97.5 F L Pulse Rate 59 L 59 L Respiratory Rate 16 Blood Pressure 130/69 Pulse Oximetry 93 L 06/30/18 09:00 06/30/18 10:00 06/30/18 11:00 Temperature 97.8 F Pulse Rate 59 L 59 L 59 L Respiratory Rate 16 Blood Pressure 130/82 Pulse Oximetry 95 06/30/18 12:00 06/30/18 13:00 06/30/18 14:00 Temperature Pulse Rate 59 L 59 L 59 L Respiratory Rate Blood Pressure Pulse Oximetry 06/30/18 15:00 Temperature 98.4 F Pulse Rate 59 L Respiratory Rate 14 Blood Pressure 120/77 Pulse Oximetry 95 Intake & Output 06/29/18 06/30/18 06/30/18 18:59 06:59 18:59 Intake Total 1120 / 1120 978 / 978 530 / 530 Output Total 1820 / 1820 310 / 310 600 / 600 Balance -700 / -700 668 / 668 -70 / -70 Intake: IV 700 / 700 798 / 798 50 / 50 NS Inj 500 ML @ 50 mls/hr IV. 500 / 500 398 / 398 CONT .Q10H NATALEE Rx#:[id number] Flexbumin 25% Inj 100 ML @ 60 100 / 100 mls/hr IV.SIG WITH DIALYSIS PRN Rx#:[id number] Zyvox 600 mg Premix 300 ML @ 300 / 300 300 mls/hr IV.SIG Q12H NATALEE Rx#: [id number] Zosyn 2.25 GM Premix 50 ML @ 50 / 50 100 / 100 50 / 50 100 mls/hr IV.SIG Q6H NATALEE Rx#: [id number] Zosyn 3.375 GM Premix 50 ML @ 50 / 50 100 mls/hr IV.SIG Q6H NATALEE Rx#: [id number] Oral 420 / 420 180 / 180 480 / 480 Output: Urine 320 / 320 300 / 300 600 / 600 Emesis Hemodialysis Amount 1500 / 1500 Other: # Voids 2 Date of Last Bowel Movement 06/29/18 06/30/18 # Bowel Movements 1 2 - Constitutional no acute distress - Routine HEENT Exam Head: Present: normocephalic Eye: Present: EOMI - Routine Neck Exam Present: supple - Routine Respiratory Exam Present: decreased breath sounds - Routine Cardiovascular Exam Present: irregular rhythm - Routine Abdominal Exam Present: soft - Routine Extremities Exam Present: edema Assessment and Plan - Assessment (1) CKD (chronic kidney disease) stage 4, GFR 15-29 ml/min Code(s): N18.4 - Chronic kidney disease, stage 4 (severe) Status: Acute (2) Coronary artery disease Code(s): I25.10 - Atherosclerotic heart disease of [place] coronary artery without angina pectoris Status: Chronic Qualifiers: Coronary Disease-Associated Artery/Lesion type: [place] artery [place] vs. transplanted heart: [place] heart Associated angina: with unstable angina Qualified Code(s): I25.110 - Atherosclerotic heart disease of [place] coronary artery with unstable angina pectoris (3) Ventricular fibrillation Code(s): I49.01 - Ventricular fibrillation Status: Acute (4) Ischemic cardiomyopathy Code(s): I25.5 - Ischemic cardiomyopathy Status: Chronic - Plan heart catheterization done 30 cc of contrast used Patient on hemodialysis next dialysis on Tuesday She is doing better with hemodialysis, possibility of long-term dialysis discussed rec hold warfarin and do Permcath on Tuesday
[2018-07-01] MEDS: Insulin NovoLOG Aspart Correctional Sugar Inj SQ SCH ×5 (00:07→20:47)
[2018-07-01] MEDS: Insulin Detemir Inj 1,000 UNIT/10 ML Vial SQ SCH ×2 (00:08→20:47)
[2018-07-01 05:33] LABS: INR 5.2 Ratio; Prothrombin Time 52.5 sec (9.8-11.6)
[2018-07-01 05:39] LABS: Hematocrit 33.7 % (35.0-46.0); Mean Corpuscular HGB Conc 32.8 % (32.0-36.0); Mean Corpuscular Hemoglobin 30.6 pg (27.0-34.0); Mean Corpuscular Volume 93.4 fL (80.0-100.0); Mean Platelet Volume 8.5 fL (7.0-11.0); Platelet Count 167 th/mm3 (150-450); Red Cell Distribution Width 15.2 % (11.6-17.2); White Blood Count 7.7 th/mm3 (4.0-11.0)
[2018-07-01 05:45] LABS: Albumin 2.7 g/dL (3.4-5.0); Anion Gap 14 meq/L (5-15); Aspartate Aminotransferase 47 U/L (15-37); Blood Urea Nitrogen 51 mg/dL (7-18); Calcium 8.4 mg/dL (8.5-10.1); Carbon Dioxide 27.1 meq/L (21.0-32.0); Chloride 100 meq/L (98-107); Glomerular Filtration Rate 12 mL/min (>89); Glucose,Random 144 mg/dL (74-106); Magnesium 2.2 mg/dL (1.5-2.5); Potassium 3.5 meq/L (3.5-5.1); Sodium 141 meq/L (136-145)
[2018-07-01 05:49] LABS: Alanine Aminotransferase 82 U/L (10-53); Alkaline Phosphatase 115 U/L (45-117); Phosphorus 3.4 mg/dL (2.5-4.9); Total Protein 6.5 g/dL (6.4-8.2)
[2018-07-01] MEDS: Piperacil/Tazo 2.25 GM Premix 50 ML IV.SIG SCH (05:56)
--- NOTE | 2018-07-01 07:52 | P.PNIM ---
Subjective Interval history: f/u CHF patient seen during dialysis, does not have any new complaints, SOB about the same, no fever, no dysuria, still making urine but very little, LE edema better , no bleeding Physical Exam Vital signs: Vital Signs 06/30/18 08:00 06/30/18 08:46 06/30/18 09:00 Temperature Pulse Rate 59 L 59 L Respiratory Rate Blood Pressure Pulse Oximetry 93 L 06/30/18 10:00 06/30/18 11:00 06/30/18 12:00 Temperature 97.8 F Pulse Rate 59 L 59 L 59 L Respiratory Rate 16 Blood Pressure 130/82 Pulse Oximetry 95 06/30/18 13:00 06/30/18 14:00 06/30/18 15:00 Temperature 98.4 F Pulse Rate 59 L 59 L 59 L Respiratory Rate 14 Blood Pressure 120/77 Pulse Oximetry 95 06/30/18 16:00 06/30/18 17:00 06/30/18 18:00 Temperature Pulse Rate 59 L 59 L 59 L Respiratory Rate Blood Pressure Pulse Oximetry 06/30/18 19:00 06/30/18 20:00 06/30/18 21:00 Temperature 98.6 F Pulse Rate 59 L 59 L 59 L Respiratory Rate 22 Blood Pressure 122/64 Pulse Oximetry 96 06/30/18 22:00 06/30/18 23:00 07/01/18 00:00 Temperature 97.9 F Pulse Rate 60 59 L 59 L Respiratory Rate 22 Blood Pressure 146/84 H Pulse Oximetry 96 07/01/18 01:00 07/01/18 02:00 07/01/18 03:00 Temperature 98.2 F Pulse Rate 60 60 59 L Respiratory Rate 20 Blood Pressure 146/85 H Pulse Oximetry 96 07/01/18 04:00 07/01/18 05:00 07/01/18 07:00 Temperature 97.5 F L Pulse Rate 59 L 61 60 Respiratory Rate 20 Blood Pressure 127/73 Pulse Oximetry 94 L Intake & Output 06/30/18 07/01/18 07/01/18 18:59 06:59 18:59 Intake Total 530 / 530 580 / 580 Output Total 600 / 600 500 / 500 Balance -70 / -70 80 / 80 Weight 140.5 kg Intake: IV 50 / 50 100 / 100 Zosyn 2.25 GM Premix 50 ML @ 50 / 50 100 / 100 100 mls/hr IV.SIG Q6H NATALEE Rx#: [id number] Oral 480 / 480 480 / 480 Output: Urine 600 / 600 500 / 500 Other: # Voids 2 Date of Last Bowel Movement 06/30/18 06/30/18 # Bowel Movements 2 Narrative: GENERAL: Morbid Obese, not in distress CARDIOVASCULAR: Regular rate and rhythm without murmurs, gallops, or rubs. RESPIRATORY: Decreased breath sounds but no wheezing or rales. GASTROINTESTINAL: Abdomen soft, non-tender, nondistended. Normal active bowel sounds MUSCULOSKELETAL: Extremities without clubbing, cyanosis, 2+ edema, improving. NEURO: Alert & Oriented x4 to person, place, time, situation. Moves all ext x4 Results - Labs CBC & Chem 7: 07/01/18 04:50 07/01/18 04:50 Laboratory Results - last 24 hr 06/30/18 06/30/18 06/30/18 07:57 11:49 15:59 WBC RBC Hgb Hct MCV MCH MCHC RDW Plt Count MPV PT INR Sodium Potassium Chloride Carbon Dioxide Anion Gap BUN Creatinine Estimated GFR POC Glucose 195 H 188 H 172 H Random Glucose Calcium Phosphorus Magnesium Total Bilirubin AST ALT Alkaline Phosphatase Total Protein Albumin 06/30/18 07/01/18 07/01/18 22:48 04:50 04:50 WBC RBC Hgb Hct MCV MCH MCHC RDW Plt Count MPV PT 52.5 H INR 5.2 Sodium 141 Potassium 3.5 Chloride 100 Carbon Dioxide 27.1 Anion Gap 14 BUN 51 H Creatinine 3.81 H Estimated GFR 12 L POC Glucose 153 H Random Glucose 144 H Calcium 8.4 L Phosphorus 3.4 Magnesium 2.2 Total Bilirubin 0.7 AST 47 H ALT 82 H Alkaline Phosphatase 115 Total Protein 6.5 Albumin 2.7 L 07/01/18 04:50 WBC 7.7 RBC 3.60 L Hgb 11.0 L Hct 33.7 L MCV 93.4 MCH 30.6 MCHC 32.8 RDW 15.2 Plt Count 167 MPV 8.5 PT INR Sodium Potassium Chloride Carbon Dioxide Anion Gap BUN Creatinine Estimated GFR POC Glucose Random Glucose Calcium Phosphorus Magnesium Total Bilirubin AST ALT Alkaline Phosphatase Total Protein Albumin - Procedures Cardiac catheterization Assessment and Plan - Assessment (1) Coronary artery disease Code(s): I25.10 - Atherosclerotic heart disease of [place] coronary artery without angina pectoris Status: Chronic (2) Ventricular fibrillation Code(s): I49.01 - Ventricular fibrillation Status: Acute (3) Ischemic cardiomyopathy Code(s): I25.5 - Ischemic cardiomyopathy Status: Chronic (4) Paroxysmal atrial fibrillation Code(s): I48.0 - Paroxysmal atrial fibrillation Status: Chronic (5) CKD (chronic kidney disease) stage 4, GFR 15-29 ml/min Code(s): N18.4 - Chronic kidney disease, stage 4 (severe) Status: Acute (6) UTI (urinary tract infection) due to Enterococcus Code(s): N39.0 - Urinary tract infection, site not specified; B95.2 - Enterococcus as the cause of diseases classified elsewhere Status: Acute (7) Iccgy-jq-mubypyp kidney injury Code(s): N17.9 - Acute kidney failure, unspecified; N18.9 - Chronic kidney disease, unspecified Status: Acute - Plan 72yF with ischemic cardiomyopathy and a last known EF of ~30-35% who presents with symptoms concerning for acute coronary syndrome and 13 episodes of ventricular fibrillation s/p 10 AICD defibrillations. continue heparin, aspirin , trending troponin. now out of shock. Acute Hypoxemia secondary to acute pulmonary edema secondary to acute systolic congestive heart failure exacerbation, resolving -Continue diuresis with lasix and HD, duonebs Acute coronary syndrome/Acute NSTEMI/Cardiogenic Shock, V. fib-resolved -Multiple episodes of Ventricular fibrillation, Ischemic cardiomyopathy EF 30 -35% now down to 15%, Status post Cardiac catheterization no new blockade found - cont Amiodarone, statin, Lasix, Aspirin. Coreg on hold, Heart rate in the 60s, cardiology following. History of paroxysmal atrial fibrillation-no significant atrial arrhythmia burden in the past few years. Resume Coumadin after permacath placement. CKD IV -patient started hemodialysis during this admission. Losartan on hold. Nephrology following, will likely need long-term dialysis. For PermCath placement on Tuesday, will need dialysis as outpatient. Urinary tract infection - secondary to E coli, MDR, on Zosyn , sensitive to ceftriaxone, no leukocytosis or fever. Switch to ceftriaxone. Supratherapeutic INR-no note of bleeding, Coumadin on hold. Hold for PermCath placement. Recheck INR daily. Acute liver injury - LFTS improving, resolving Lactic acidosis - resolved DM II on sliding scale-blood glucose acceptable, continue Levemir 25 units. GI prophylaxis with Protonix DVT prophylaxis with Coumadin, currently on hold Full Code. Disposition: Physical therapy recommends home health care with physical therapy. Discharge once outpatient dialysis in place. (1) Coronary artery disease Qualifiers: Coronary Disease-Associated Artery/Lesion type: [place] artery [place] vs. transplanted heart: [place] heart Associated angina: with unstable angina Qualified Code(s): I25.110 - Atherosclerotic heart disease of [place] coronary artery with unstable angina pectoris
[2018-07-01] MEDS: Epoetin Alfa Inj 4,000 UNIT/ML Vial IV.PUSH PRN (08:24)
--- NOTE | 2018-07-01 09:36 | P.PNNP ---
Subjective Interval history: no acute complaints, seen on HD Physical Exam Vital signs: Vital Signs 06/30/18 10:00 06/30/18 11:00 06/30/18 12:00 Temperature 97.8 F Pulse Rate 59 L 59 L 59 L Respiratory Rate 16 Blood Pressure 130/82 Pulse Oximetry 95 06/30/18 13:00 06/30/18 14:00 06/30/18 15:00 Temperature 98.4 F Pulse Rate 59 L 59 L 59 L Respiratory Rate 14 Blood Pressure 120/77 Pulse Oximetry 95 06/30/18 16:00 06/30/18 17:00 06/30/18 18:00 Temperature Pulse Rate 59 L 59 L 59 L Respiratory Rate Blood Pressure Pulse Oximetry 06/30/18 19:00 06/30/18 20:00 06/30/18 21:00 Temperature 98.6 F Pulse Rate 59 L 59 L 59 L Respiratory Rate 22 Blood Pressure 122/64 Pulse Oximetry 96 06/30/18 22:00 06/30/18 23:00 07/01/18 00:00 Temperature 97.9 F Pulse Rate 60 59 L 59 L Respiratory Rate 22 Blood Pressure 146/84 H Pulse Oximetry 96 07/01/18 01:00 07/01/18 02:00 07/01/18 03:00 Temperature 98.2 F Pulse Rate 60 60 59 L Respiratory Rate 20 Blood Pressure 146/85 H Pulse Oximetry 96 07/01/18 04:00 07/01/18 05:00 07/01/18 07:00 Temperature 97.5 F L Pulse Rate 59 L 61 60 Respiratory Rate 20 Blood Pressure 127/73 Pulse Oximetry 94 L Intake & Output 06/30/18 07/01/18 07/01/18 18:59 06:59 18:59 Intake Total 530 / 530 580 / 580 452 / 452 Output Total 600 / 600 500 / 500 Balance -70 / -70 80 / 80 452 / 452 Weight 140.5 kg Intake: IV 50 / 50 100 / 100 452 / 452 NS Inj 500 ML @ 50 mls/hr IV. 102 / 102 CONT .Q10H NATALEE Rx#:[id number] Zyvox 600 mg Premix 300 ML @ 300 / 300 300 mls/hr IV.SIG Q12H NATALEE Rx#: [id number] Zosyn 2.25 GM Premix 50 ML @ 50 / 50 100 / 100 50 / 50 100 mls/hr IV.SIG Q6H NATALEE Rx#: [id number] Oral 480 / 480 480 / 480 Output: Urine 600 / 600 500 / 500 Other: # Voids 2 Date of Last Bowel Movement 06/30/18 06/30/18 # Bowel Movements 2 - Constitutional no acute distress - Routine Neck Exam Present: supple - Routine Respiratory Exam Present: CTA bilaterally, diminished air movement - Routine Cardiovascular Exam Present: RRR - Routine Abdominal Exam Present: soft - Routine Extremities Exam Present: vascular access - Routine Neurological Exam Present: alert, oriented X3 - Detailed Neurological Exam: Coma Scale Eye Opening: Spontaneous - Routine Psychiatric Exam Present: normal affect Assessment and Plan - Assessment (1) CKD (chronic kidney disease) stage 4, GFR 15-29 ml/min Code(s): N18.4 - Chronic kidney disease, stage 4 (severe) Status: Acute (2) Coronary artery disease Code(s): I25.10 - Atherosclerotic heart disease of [place] coronary artery without angina pectoris Status: Chronic Qualifiers: Coronary Disease-Associated Artery/Lesion type: [place] artery [place] vs. transplanted heart: [place] heart Associated angina: with unstable angina Qualified Code(s): I25.110 - Atherosclerotic heart disease of [place] coronary artery with unstable angina pectoris (3) Ventricular fibrillation Code(s): I49.01 - Ventricular fibrillation Status: Acute (4) Ischemic cardiomyopathy Code(s): I25.5 - Ischemic cardiomyopathy Status: Chronic - Plan heart catheterization done 30 cc of contrast used Patient on hemodialysis TTS, tolerating HD via non-tunneled catheter Seen on HD today, next dialysis on Tuesday She is doing better with hemodialysis, possibility of long-term dialysis discussed Rec hold warfarin and do Permcath on Tuesday
[2018-07-01] MEDS: Calcitriol 0.25 MCG Capsule PO SCH (12:25)
[2018-07-01] MEDS: Famotidine 20 MG Tablet PO SCH ×2 (12:25→20:45)
[2018-07-01] MEDS: Furosemide 40 MG Tablet PO SCH (12:26)
[2018-07-01] MEDS: Amiodarone 200 MG Tablet PO SCH (12:26)
[2018-07-01] MEDS: Allopurinol 100 MG Tablet PO SCH (12:27)
[2018-07-01] MEDS: Sod Chloride 0.9% Inj 500 ML IV.CONT SCH ×3 (17:52→17:54)
[2018-07-02] MEDS: Sod Chloride 0.9% Inj 500 ML IV.CONT SCH (04:29)
[2018-07-02 08:09] LABS: INR 3.3 Ratio; Prothrombin Time 33.3 sec (9.8-11.6)
--- NOTE | 2018-07-02 08:41 | P.PNIM ---
Subjective Interval history: Follow-up for renal failure, supratherapeutic INR No noted bleeding, eating breakfast, denies any chest pain, shortness of breath is better. Lower extremity edema is better. Afebrile. Physical Exam Vital signs: Vital Signs 07/01/18 11:59 07/01/18 12:00 07/01/18 12:01 Temperature 97.4 F L Pulse Rate 59 L 59 L Respiratory Rate 16 16 Blood Pressure 130/73 Pulse Oximetry 99 99 07/01/18 12:07 07/01/18 13:00 07/01/18 14:00 Temperature Pulse Rate 59 L 62 Respiratory Rate Blood Pressure Pulse Oximetry 98 07/01/18 15:00 07/01/18 16:00 07/01/18 17:00 Temperature 98.3 F Pulse Rate 59 L 59 L 60 Respiratory Rate 16 Blood Pressure 114/56 L Pulse Oximetry 94 L 07/01/18 18:00 07/01/18 19:00 07/01/18 19:53 Temperature 98.1 F Pulse Rate 59 L 60 Respiratory Rate 18 Blood Pressure 119/63 Pulse Oximetry 96 96 07/01/18 20:00 07/01/18 21:00 07/01/18 22:00 Temperature Pulse Rate 59 L 59 L 60 Respiratory Rate Blood Pressure Pulse Oximetry 96 07/01/18 23:00 07/02/18 00:00 07/02/18 01:00 Temperature 98.4 F Pulse Rate 60 59 L 59 L Respiratory Rate 20 Blood Pressure 120/66 Pulse Oximetry 96 07/02/18 02:00 07/02/18 02:48 07/02/18 04:00 Temperature 98 F Pulse Rate 59 L 59 L 60 Respiratory Rate 20 Blood Pressure 120/65 Pulse Oximetry 94 L 07/02/18 04:59 07/02/18 05:56 07/02/18 07:00 Temperature 97.4 F L Pulse Rate 60 60 60 Respiratory Rate 17 Blood Pressure 132/65 Pulse Oximetry 97 Intake & Output 07/01/18 07/02/18 07/02/18 18:59 06:59 18:59 Intake Total 1482 / 1482 780 / 780 Output Total 5300 / 5300 400 / 400 Balance -3818 / -3818 380 / 380 Weight 137.5 kg Intake: IV 882 / 882 300 / 300 NS Inj 500 ML @ 50 mls/hr IV. 432 / 432 CONT .Q10H NATALEE Rx#:[id number] Zyvox 600 mg Premix 300 ML @ 300 / 300 300 mls/hr IV.SIG Q12H NATALEE Rx#: [id number] Zosyn 2.25 GM Premix 50 ML @ 50 / 50 100 mls/hr IV.SIG Q6H NATALEE Rx#: [id number] Rocephin Inj 1,000 MG In NS Inj 100 / 100 100 ML @ 200 mls/hr IV.SIG Q24H NATALEE Rx#:[id number] NS Inj 1,000 ML @ As Directed 300 / 300 OTHER .Q0M PRN Rx#:[id number] Oral 600 / 600 480 / 480 Output: Urine 300 / 300 400 / 400 Hemodialysis Amount 5000 / 5000 Other: Date of Last Bowel Movement 06/30/18 07/01/18 Narrative: GENERAL: Morbid Obese, not in distress CARDIOVASCULAR: Regular rate and rhythm without murmurs, gallops, or rubs. RESPIRATORY: Decreased breath sounds but no wheezing or rales. GASTROINTESTINAL: Abdomen soft, non-tender, nondistended. Normal active bowel sounds MUSCULOSKELETAL: Extremities without clubbing, cyanosis, 1 + edema, improving. NEURO: Alert & Oriented x4 to person, place, time, situation. Moves all ext x4 Results - Labs CBC & Chem 7: 07/01/18 04:50 07/01/18 04:50 Laboratory Results - last 24 hr 07/01/18 07/01/18 07/01/18 11:04 11:44 15:48 PT INR POC Glucose 101 103 124 H 07/01/18 07/02/18 07/02/18 19:51 07:33 07:36 PT 33.3 H D INR 3.3 POC Glucose 192 H 122 H - Procedures Cardiac catheterization Assessment and Plan - Assessment (1) Coronary artery disease Code(s): I25.10 - Atherosclerotic heart disease of [place] coronary artery without angina pectoris Status: Chronic (2) Ventricular fibrillation Code(s): I49.01 - Ventricular fibrillation Status: Acute (3) Ischemic cardiomyopathy Code(s): I25.5 - Ischemic cardiomyopathy Status: Chronic (4) Paroxysmal atrial fibrillation Code(s): I48.0 - Paroxysmal atrial fibrillation Status: Chronic (5) CKD (chronic kidney disease) stage 4, GFR 15-29 ml/min Code(s): N18.4 - Chronic kidney disease, stage 4 (severe) Status: Acute (6) UTI (urinary tract infection) due to Enterococcus Code(s): N39.0 - Urinary tract infection, site not specified; B95.2 - Enterococcus as the cause of diseases classified elsewhere Status: Acute (7) [id number] kidney injury Code(s): N17.9 - Acute kidney failure, unspecified; N18.9 - Chronic kidney disease, unspecified Status: Acute - Plan 72yF with ischemic cardiomyopathy and a last known EF of ~30-35% who presents with symptoms concerning for acute coronary syndrome and 13 episodes of ventricular fibrillation s/p 10 AICD defibrillations. continue heparin, aspirin , trending troponin. now out of shock. Acute Hypoxemia secondary to acute pulmonary edema secondary to acute systolic congestive heart failure exacerbation, resolving -Continue diuresis with lasix and HD, duonebs Acute coronary syndrome/Acute NSTEMI/Cardiogenic Shock, V. fib-resolved -Multiple episodes of Ventricular fibrillation, Ischemic cardiomyopathy EF 30 -35% now down to 15%, Status post Cardiac catheterization no new blockade found - cont Amiodarone, statin, Lasix, Aspirin. Coreg on hold, Heart rate in the 60s, cardiology following. History of paroxysmal atrial fibrillation-no significant atrial arrhythmia burden in the past few years. Resume Coumadin after permacath placement. CKD IV -patient started hemodialysis during this admission. Losartan on hold. Nephrology following, will likely need long-term dialysis. For PermCath placement on Tuesday, will need dialysis as outpatient. Continue hemodialysis TTS. Urinary tract infection - secondary to E coli, MDR, on Zosyn , sensitive to ceftriaxone, no leukocytosis or fever. Switch to ceftriaxone (06/29-07/05). Supratherapeutic INR- no note of bleeding, Coumadin on hold. Hold for PermCath placement. INR still at 3.3, if still high tomorrow, will give a dose of Vitamin K Acute liver injury - LFTS improving, resolving Lactic acidosis - resolved DM II on sliding scale-blood glucose acceptable, continue Levemir 25 units. SSI. GI prophylaxis with Protonix DVT prophylaxis with Coumadin, currently on hold Full Code. Disposition: Physical therapy recommends home health care with physical therapy. Discharge once outpatient dialysis in place. (1) Coronary artery disease Qualifiers: Coronary Disease-Associated Artery/Lesion type: [place] artery [place] vs. transplanted heart: [place] heart Associated angina: with unstable angina Qualified Code(s): I25.110 - Atherosclerotic heart disease of [place] coronary artery with unstable angina pectoris
[2018-07-02] MEDS: Allopurinol 100 MG Tablet PO SCH (09:05)
[2018-07-02] MEDS: Famotidine 20 MG Tablet PO SCH ×2 (09:05→20:59)
[2018-07-02] MEDS: Calcitriol 0.25 MCG Capsule PO SCH (09:05)
[2018-07-02] MEDS: Amiodarone 200 MG Tablet PO SCH (09:05)
[2018-07-02] MEDS: Furosemide 40 MG Tablet PO SCH (09:05)
[2018-07-02] MEDS: Insulin NovoLOG Aspart Correctional Sugar Inj SQ SCH ×4 (10:32→20:58)
--- NOTE | 2018-07-02 11:38 | P.PNNP ---
Subjective Interval history: no acute complaints Physical Exam Vital signs: Vital Signs 07/01/18 11:59 07/01/18 12:00 07/01/18 12:01 Temperature 97.4 F L Pulse Rate 59 L 59 L Respiratory Rate 16 16 Blood Pressure 130/73 Pulse Oximetry 99 99 07/01/18 12:07 07/01/18 13:00 07/01/18 14:00 Temperature Pulse Rate 59 L 62 Respiratory Rate Blood Pressure Pulse Oximetry 98 07/01/18 15:00 07/01/18 16:00 07/01/18 17:00 Temperature 98.3 F Pulse Rate 59 L 59 L 60 Respiratory Rate 16 Blood Pressure 114/56 L Pulse Oximetry 94 L 07/01/18 18:00 07/01/18 19:00 07/01/18 19:53 Temperature 98.1 F Pulse Rate 59 L 60 Respiratory Rate 18 Blood Pressure 119/63 Pulse Oximetry 96 96 07/01/18 20:00 07/01/18 21:00 07/01/18 22:00 Temperature Pulse Rate 59 L 59 L 60 Respiratory Rate Blood Pressure Pulse Oximetry 96 07/01/18 23:00 07/02/18 00:00 07/02/18 01:00 Temperature 98.4 F Pulse Rate 60 59 L 59 L Respiratory Rate 20 Blood Pressure 120/66 Pulse Oximetry 96 07/02/18 02:00 07/02/18 02:48 07/02/18 04:00 Temperature 98 F Pulse Rate 59 L 59 L 60 Respiratory Rate 20 Blood Pressure 120/65 Pulse Oximetry 94 L 07/02/18 04:59 07/02/18 05:56 07/02/18 07:00 Temperature 97.4 F L Pulse Rate 60 60 60 Respiratory Rate 17 Blood Pressure 132/65 Pulse Oximetry 97 07/02/18 08:00 07/02/18 09:00 07/02/18 10:00 Temperature Pulse Rate 64 63 63 Respiratory Rate Blood Pressure Pulse Oximetry 07/02/18 10:14 Temperature Pulse Rate Respiratory Rate Blood Pressure Pulse Oximetry 95 Intake & Output 07/01/18 07/02/18 07/02/18 18:59 06:59 18:59 Intake Total 1482 / 1482 780 / 780 Output Total 5300 / 5300 400 / 400 Balance -3818 / -3818 380 / 380 Weight 137.5 kg Intake: IV 882 / 882 300 / 300 NS Inj 500 ML @ 50 mls/hr IV. 432 / 432 CONT .Q10H NATALEE Rx#:[id number] Zyvox 600 mg Premix 300 ML @ 300 / 300 300 mls/hr IV.SIG Q12H NATALEE Rx#: [id number] Zosyn 2.25 GM Premix 50 ML @ 50 / 50 100 mls/hr IV.SIG Q6H NATALEE Rx#: [id number] Rocephin Inj 1,000 MG In NS Inj 100 / 100 100 ML @ 200 mls/hr IV.SIG Q24H NATALEE Rx#:[id number] NS Inj 1,000 ML @ As Directed 300 / 300 OTHER .Q0M PRN Rx#:[id number] Oral 600 / 600 480 / 480 Output: Urine 300 / 300 400 / 400 Hemodialysis Amount 5000 / 5000 Other: Date of Last Bowel Movement 06/30/18 07/01/18 - Constitutional no acute distress - Routine HEENT Exam Head: Present: normocephalic Eye: Present: EOMI ENT: Present: mucous membranes moist - Routine Neck Exam Present: supple - Routine Respiratory Exam Present: diminished air movement - Routine Cardiovascular Exam Present: RRR - Routine Abdominal Exam Present: soft - Routine Extremities Exam Present: vascular access - Routine Skin Exam Present: intact - Routine Neurological Exam Present: alert, oriented X3 - Detailed Neurological Exam: Coma Scale Eye Opening: Spontaneous - Routine Psychiatric Exam Present: normal affect Assessment and Plan - Assessment (1) CKD (chronic kidney disease) stage 4, GFR 15-29 ml/min Code(s): N18.4 - Chronic kidney disease, stage 4 (severe) Status: Acute (2) Coronary artery disease Code(s): I25.10 - Atherosclerotic heart disease of [place] coronary artery without angina pectoris Status: Chronic Qualifiers: Coronary Disease-Associated Artery/Lesion type: [place] artery [place] vs. transplanted heart: [place] heart Associated angina: with unstable angina Qualified Code(s): I25.110 - Atherosclerotic heart disease of [place] coronary artery with unstable angina pectoris (3) Ventricular fibrillation Code(s): I49.01 - Ventricular fibrillation Status: Acute (4) Ischemic cardiomyopathy Code(s): I25.5 - Ischemic cardiomyopathy Status: Chronic - Plan heart catheterization done 30 cc of contrast used Patient on hemodialysis TTS, tolerating HD via non-tunneled catheter HD done yesterday - 5L UF Next HD Tuesday She is doing better with hemodialysis, possibility of long-term dialysis discussed Rec hold warfarin and do Permcath on Tuesday. Will check PT/INR in AM
[2018-07-02] MEDS: Acetaminophen 325 MG Tablet PO PRN (17:00)
[2018-07-02] MEDS: Insulin Detemir Inj 1,000 UNIT/10 ML Vial SQ SCH (20:59)
[2018-07-03] MEDS: Acetaminophen 325 MG Tablet PO PRN ×2 (02:57→21:29)
[2018-07-03 04:24] LABS: Hematocrit 32.2 % (35.0-46.0); Hemoglobin 10.8 gm/dL (11.6-15.3); Mean Corpuscular HGB Conc 33.6 % (32.0-36.0); Mean Corpuscular Hemoglobin 31.2 pg (27.0-34.0); Mean Corpuscular Volume 92.9 fL (80.0-100.0); Mean Platelet Volume 8.2 fL (7.0-11.0); Platelet Count 157 th/mm3 (150-450); Red Blood Count 3.46 mil/mm3 (4.00-5.30); Red Cell Distribution Width 15.4 % (11.6-17.2); White Blood Count 8.9 th/mm3 (4.0-11.0)
[2018-07-03 04:44] LABS: INR 2.2 Ratio; Prothrombin Time 22.7 sec (9.8-11.6)
[2018-07-03 04:57] LABS: Alanine Aminotransferase 60 U/L (10-53); Albumin 2.5 g/dL (3.4-5.0); Alkaline Phosphatase 109 U/L (45-117); Anion Gap 8 meq/L (5-15); Aspartate Aminotransferase 20 U/L (15-37); Blood Urea Nitrogen 47 mg/dL (7-18); Calcium 8.3 mg/dL (8.5-10.1); Carbon Dioxide 29.9 meq/L (21.0-32.0); Chloride 103 meq/L (98-107); Glomerular Filtration Rate 17 mL/min (>89); Glucose,Random 117 mg/dL (74-106); Potassium 3.5 meq/L (3.5-5.1); Sodium 141 meq/L (136-145); Total Protein 6.5 g/dL (6.4-8.2)
--- NOTE | 2018-07-03 09:14 | P.PNIM ---
Subjective Interval history: Follow-up for shortness of breath Shortness of breath a lot better, feels better today, no chest pain, lower extremity edema better. INR is 2.2. Physical Exam Vital signs: Vital Signs 07/02/18 10:00 07/02/18 10:14 07/02/18 11:00 Temperature 97.9 F Pulse Rate 63 60 Respiratory Rate 17 Blood Pressure 148/70 H Pulse Oximetry 95 99 07/02/18 12:00 07/02/18 13:00 07/02/18 14:00 Temperature Pulse Rate 62 65 59 L Respiratory Rate Blood Pressure Pulse Oximetry 07/02/18 15:00 07/02/18 16:00 07/02/18 17:00 Temperature 97.6 F Pulse Rate 61 59 L 63 Respiratory Rate 17 Blood Pressure 121/78 Pulse Oximetry 97 07/02/18 17:51 07/02/18 19:00 07/02/18 19:35 Temperature 97.9 F Pulse Rate 59 L 59 L Respiratory Rate 16 16 Blood Pressure 127/62 Pulse Oximetry 96 07/02/18 20:00 07/02/18 21:00 07/02/18 21:43 Temperature Pulse Rate 59 L 59 L Respiratory Rate Blood Pressure Pulse Oximetry 96 07/02/18 22:00 07/02/18 23:00 07/03/18 00:00 Temperature 98.3 F Pulse Rate 59 L 59 L 59 L Respiratory Rate 16 Blood Pressure 138/68 Pulse Oximetry 96 07/03/18 01:00 07/03/18 02:00 07/03/18 03:00 Temperature 98.3 F Pulse Rate 59 L 59 L 59 L Respiratory Rate 16 Blood Pressure 139/63 Pulse Oximetry 96 07/03/18 04:00 07/03/18 05:00 07/03/18 06:00 Temperature Pulse Rate 59 L 59 L 59 L Respiratory Rate Blood Pressure Pulse Oximetry 07/03/18 07:00 07/03/18 07:48 07/03/18 09:06 Temperature 97.8 F Pulse Rate 59 L 59 L Respiratory Rate 20 Blood Pressure 136/67 Pulse Oximetry 94 L 94 L Intake & Output 07/02/18 07/03/18 07/03/18 18:59 06:59 18:59 Intake Total 830 / 830 480 / 480 Output Total 400 / 400 225 / 225 Balance 430 / 430 255 / 255 Weight 138 kg Intake: IV 350 / 350 Rocephin Inj 1,000 MG In NS Inj 100 / 100 100 ML @ 200 mls/hr IV.SIG Q24H NATALEE Rx#:[id number] NS Inj 1,000 ML @ As Directed 250 / 250 OTHER .Q0M PRN Rx#:[id number] Oral 480 / 480 480 / 480 Output: Urine 300 / 300 225 / 225 Stool 100 / 100 Other: Date of Last Bowel Movement 07/02/18 07/02/18 07/02/18 # Bowel Movements 1 Narrative: GENERAL: Morbid Obese, not in distress CARDIOVASCULAR: Regular rate and rhythm without murmurs, gallops, or rubs. RESPIRATORY: Decreased breath sounds but no wheezing or rales. GASTROINTESTINAL: Abdomen soft, non-tender, nondistended. Normal active bowel sounds MUSCULOSKELETAL: Extremities without clubbing, cyanosis, 1 + edema, continues to improve NEURO: Alert & Oriented x4 to person, place, time, situation. Moves all ext x4 Results - Labs CBC & Chem 7: 07/03/18 03:43 07/03/18 03:43 Laboratory Results - last 24 hr 07/02/18 07/02/18 07/02/18 11:55 17:28 20:11 WBC RBC Hgb Hct MCV MCH MCHC RDW Plt Count MPV PT INR Sodium Potassium Chloride Carbon Dioxide Anion Gap BUN Creatinine Estimated GFR POC Glucose 216 H 130 H 220 H Random Glucose Calcium Total Bilirubin AST ALT Alkaline Phosphatase Total Protein Albumin 07/03/18 07/03/18 07/03/18 03:43 03:43 03:43 WBC 8.9 RBC 3.46 L Hgb 10.8 L Hct 32.2 L MCV 92.9 MCH 31.2 MCHC 33.6 RDW 15.4 Plt Count 157 MPV 8.2 PT 22.7 H D INR 2.2 Sodium 141 Potassium 3.5 Chloride 103 Carbon Dioxide 29.9 Anion Gap 8 BUN 47 H Creatinine 2.78 H Estimated GFR 17 L POC Glucose Random Glucose 117 H Calcium 8.3 L Total Bilirubin 0.6 AST 20 ALT 60 H Alkaline Phosphatase 109 Total Protein 6.5 Albumin 2.5 L 07/03/18 08:06 WBC RBC Hgb Hct MCV MCH MCHC RDW Plt Count MPV PT INR Sodium Potassium Chloride Carbon Dioxide Anion Gap BUN Creatinine Estimated GFR POC Glucose 103 Random Glucose Calcium Total Bilirubin AST ALT Alkaline Phosphatase Total Protein Albumin - Procedures Cardiac catheterization Assessment and Plan - Assessment (1) Coronary artery disease Code(s): I25.10 - Atherosclerotic heart disease of [place] coronary artery without angina pectoris Status: Chronic (2) Ventricular fibrillation Code(s): I49.01 - Ventricular fibrillation Status: Acute (3) Ischemic cardiomyopathy Code(s): I25.5 - Ischemic cardiomyopathy Status: Chronic (4) Paroxysmal atrial fibrillation Code(s): I48.0 - Paroxysmal atrial fibrillation Status: Chronic (5) CKD (chronic kidney disease) stage 4, GFR 15-29 ml/min Code(s): N18.4 - Chronic kidney disease, stage 4 (severe) Status: Acute (6) UTI (urinary tract infection) due to Enterococcus Code(s): N39.0 - Urinary tract infection, site not specified; B95.2 - Enterococcus as the cause of diseases classified elsewhere Status: Acute (7) [id number] kidney injury Code(s): N17.9 - Acute kidney failure, unspecified; N18.9 - Chronic kidney disease, unspecified Status: Acute - Plan 72yF with ischemic cardiomyopathy and a last known EF of ~30-35% who presents with symptoms concerning for acute coronary syndrome and 13 episodes of ventricular fibrillation s/p 10 AICD defibrillations. continue heparin, aspirin , trending troponin. now out of shock. Acute Hypoxemia secondary to acute pulmonary edema secondary to acute systolic congestive heart failure exacerbation, resolving -Continue diuresis with lasix and HD, duonebs Acute coronary syndrome/Acute NSTEMI/Cardiogenic Shock, V. fib-resolved -Multiple episodes of Ventricular fibrillation, Ischemic cardiomyopathy EF 30 -35% now down to 15%, Status post Cardiac catheterization no new blockade found - cont Amiodarone, statin, Lasix, Aspirin. Coreg on hold, Heart rate in the 60s, cardiology following. History of paroxysmal atrial fibrillation-no significant atrial arrhythmia burden in the past few years. Resume Coumadin after permacath placement. CKD IV -patient started hemodialysis during this admission. Losartan on hold. Nephrology following, will likely need long-term dialysis. For PermCath placement tomorrow,, will need dialysis as outpatient. Continue hemodialysis TTS. Recheck BMP tomorrow. Urinary tract infection - secondary to E coli, MDR, on Zosyn , sensitive to ceftriaxone, no leukocytosis or fever. Continue ceftriaxone (06/29-07/05). Supratherapeutic INR- no note of bleeding, Coumadin on hold. Hold for PermCath placement. INR still at 2.2, will give vitamin K subcutaneously, check INR tomorrow. Acute liver injury - LFTS improving, resolving, recheck LFTs tomorrow. Lactic acidosis - resolved DM II on sliding scale-blood glucose acceptable, continue Levemir 25 units. SSI. GI prophylaxis with Protonix DVT prophylaxis with Coumadin, currently on hold Full Code. Disposition: Physical therapy recommends home health care with physical therapy. Discharge once outpatient dialysis in place. (1) Coronary artery disease Qualifiers: Coronary Disease-Associated Artery/Lesion type: [place] artery [place] vs. transplanted heart: [place] heart Associated angina: with unstable angina Qualified Code(s): I25.110 - Atherosclerotic heart disease of [place] coronary artery with unstable angina pectoris
[2018-07-03] MEDS: Insulin NovoLOG Aspart Correctional Sugar Inj SQ SCH ×4 (09:19→21:25)
[2018-07-03] MEDS: Allopurinol 100 MG Tablet PO SCH (09:36)
[2018-07-03] MEDS: Calcitriol 0.25 MCG Capsule PO SCH (09:36)
[2018-07-03] MEDS: Amiodarone 200 MG Tablet PO SCH (09:36)
[2018-07-03] MEDS: Furosemide 40 MG Tablet PO SCH (09:36)
[2018-07-03] MEDS: Famotidine 20 MG Tablet PO SCH ×2 (09:37→21:30)
[2018-07-03] MEDS ORDERED: Phytonadione Inj 10 MG/ML Vial SQ ONE (10:00)
--- NOTE | 2018-07-03 12:18 | P.PNNP ---
Subjective Interval history: Patient is on hemodialysis next treatment this tomorrow Physical Exam Vital signs: Vital Signs 07/02/18 13:00 07/02/18 14:00 07/02/18 15:00 Temperature 97.6 F Pulse Rate 65 59 L 61 Respiratory Rate 17 Blood Pressure 121/78 Pulse Oximetry 97 07/02/18 16:00 07/02/18 17:00 07/02/18 17:51 Temperature Pulse Rate 59 L 63 59 L Respiratory Rate Blood Pressure Pulse Oximetry 07/02/18 19:00 07/02/18 19:35 07/02/18 20:00 Temperature 97.9 F Pulse Rate 59 L 59 L Respiratory Rate 16 16 Blood Pressure 127/62 Pulse Oximetry 96 07/02/18 21:00 07/02/18 21:43 07/02/18 22:00 Temperature Pulse Rate 59 L 59 L Respiratory Rate Blood Pressure Pulse Oximetry 96 07/02/18 23:00 07/03/18 00:00 07/03/18 01:00 Temperature 98.3 F Pulse Rate 59 L 59 L 59 L Respiratory Rate 16 Blood Pressure 138/68 Pulse Oximetry 96 07/03/18 02:00 07/03/18 03:00 07/03/18 04:00 Temperature 98.3 F Pulse Rate 59 L 59 L 59 L Respiratory Rate 16 Blood Pressure 139/63 Pulse Oximetry 96 07/03/18 05:00 07/03/18 06:00 07/03/18 07:00 Temperature Pulse Rate 59 L 59 L 59 L Respiratory Rate Blood Pressure Pulse Oximetry 07/03/18 07:48 07/03/18 08:00 07/03/18 09:00 Temperature 97.8 F Pulse Rate 59 L 63 61 Respiratory Rate 20 Blood Pressure 136/67 Pulse Oximetry 94 L 07/03/18 09:06 07/03/18 09:17 07/03/18 10:00 Temperature Pulse Rate 59 L Respiratory Rate Blood Pressure Pulse Oximetry 94 L 97 07/03/18 10:49 Temperature 97.7 F Pulse Rate 69 Respiratory Rate 20 Blood Pressure 128/60 Pulse Oximetry 96 Intake & Output 07/02/18 07/03/18 07/03/18 18:59 06:59 18:59 Intake Total 830 / 830 480 / 480 Output Total 400 / 400 225 / 225 Balance 430 / 430 255 / 255 Weight 138 kg Intake: IV 350 / 350 Rocephin Inj 1,000 MG In NS Inj 100 / 100 100 ML @ 200 mls/hr IV.SIG Q24H NATALEE Rx#:[id number] NS Inj 1,000 ML @ As Directed 250 / 250 OTHER .Q0M PRN Rx#:[id number] Oral 480 / 480 480 / 480 Output: Urine 300 / 300 225 / 225 Stool 100 / 100 Other: Date of Last Bowel Movement 07/02/18 07/02/18 07/02/18 # Bowel Movements 1 - Constitutional no acute distress - Routine HEENT Exam Head: Present: normocephalic Eye: Present: EOMI - Routine Neck Exam Present: supple - Routine Respiratory Exam Present: decreased breath sounds - Routine Cardiovascular Exam Present: S1, S2 - Routine Abdominal Exam Present: soft, normoactive bowel sounds - Routine Extremities Exam Present: edema - Routine Neurological Exam Present: alert Assessment and Plan - Assessment (1) CKD (chronic kidney disease) stage 4, GFR 15-29 ml/min Code(s): N18.4 - Chronic kidney disease, stage 4 (severe) Status: Acute (2) Coronary artery disease Code(s): I25.10 - Atherosclerotic heart disease of [place] coronary artery without angina pectoris Status: Chronic Qualifiers: Coronary Disease-Associated Artery/Lesion type: [place] artery [place] vs. transplanted heart: [place] heart Associated angina: with unstable angina Qualified Code(s): I25.110 - Atherosclerotic heart disease of [place] coronary artery with unstable angina pectoris (3) Ventricular fibrillation Code(s): I49.01 - Ventricular fibrillation Status: Acute (4) Ischemic cardiomyopathy Code(s): I25.5 - Ischemic cardiomyopathy Status: Chronic - Plan heart catheterization done 30 cc of contrast used Patient on hemodialysis TTS, tolerating HD via non-tunneled catheter HD done Tuesday 5L UF Next HD Tuesday She is doing better with hemodialysis, possibility of long-term dialysis discussed Rec hold warfarin and do Permcath on Tuesday. Will check PT/INR in AM Vitamin K given
[2018-07-03] MEDS: Insulin Detemir Inj 1,000 UNIT/10 ML Vial SQ SCH (21:26)
[2018-07-04 05:22] LABS: Hematocrit 41.1 % (35.0-46.0); Hemoglobin 13.8 gm/dL (11.6-15.3); Mean Corpuscular HGB Conc 33.6 % (32.0-36.0); Mean Corpuscular Hemoglobin 30.9 pg (27.0-34.0); Mean Corpuscular Volume 92.1 fL (80.0-100.0); Mean Platelet Volume 8.4 fL (7.0-11.0); Platelet Count 108 th/mm3 (150-450); Red Blood Count 4.46 mil/mm3 (4.00-5.30); White Blood Count 5.9 th/mm3 (4.0-11.0)
[2018-07-04 05:30] LABS: INR 1.6 Ratio; Prothrombin Time 15.8 sec (9.8-11.6)
[2018-07-04 05:46] LABS: Alanine Aminotransferase 53 U/L (10-53); Albumin 2.4 g/dL (3.4-5.0); Anion Gap 11 meq/L (5-15); Aspartate Aminotransferase 21 U/L (15-37); Blood Urea Nitrogen 45 mg/dL (7-18); Calcium 8.5 mg/dL (8.5-10.1); Carbon Dioxide 27.5 meq/L (21.0-32.0); Chloride 105 meq/L (98-107); Glomerular Filtration Rate 19 mL/min (>89); Glucose,Random 100 mg/dL (74-106); Potassium 3.9 meq/L (3.5-5.1)
[2018-07-04 05:48] LABS: Alkaline Phosphatase 103 U/L (45-117); Total Protein 6.7 g/dL (6.4-8.2)
[2018-07-04 05:50] LABS: Sodium 143 meq/L (136-145)
[2018-07-04] MEDS: Insulin NovoLOG Aspart Correctional Sugar Inj SQ SCH ×4 (08:55→21:20)
--- NOTE | 2018-07-04 12:50 | P.PNIM ---
Subjective Interval history: Follow-up for shortness of breath/edema Shortness of breath resolved, lower extremity edema still better. Seen during dialysis. For PermCath placement today. Physical Exam Vital signs: Vital Signs 07/03/18 13:00 07/03/18 14:00 07/03/18 15:00 Temperature 97.7 F Pulse Rate 54 L 59 L 59 L Respiratory Rate 20 Blood Pressure 127/63 Pulse Oximetry 97 07/03/18 16:00 07/03/18 17:08 07/03/18 18:37 Temperature Pulse Rate 59 L 59 L 59 L Respiratory Rate Blood Pressure Pulse Oximetry 07/03/18 19:00 07/03/18 19:35 07/03/18 20:00 Temperature 98.0 F Pulse Rate 60 59 L 60 Respiratory Rate 20 Blood Pressure 133/67 Pulse Oximetry 99 99 07/03/18 21:00 07/03/18 22:00 07/03/18 22:15 Temperature Pulse Rate 62 62 Respiratory Rate 19 Blood Pressure Pulse Oximetry 07/03/18 23:00 07/03/18 23:56 07/04/18 00:00 Temperature 98.4 F Pulse Rate 59 L 59 L 62 Respiratory Rate 19 Blood Pressure 125/60 Pulse Oximetry 98 07/04/18 01:00 07/04/18 02:00 07/04/18 03:00 Temperature Pulse Rate 66 60 60 Respiratory Rate Blood Pressure Pulse Oximetry 07/04/18 04:00 07/04/18 05:00 07/04/18 06:00 Temperature 98.3 F Pulse Rate 59 L 59 L 59 L Respiratory Rate 18 Blood Pressure 133/63 Pulse Oximetry 96 07/04/18 07:00 07/04/18 08:00 07/04/18 12:46 Temperature 97.6 F 97.7 F Pulse Rate 59 L 59 L 60 Respiratory Rate 18 17 Blood Pressure 131/65 135/65 Pulse Oximetry 95 95 96 Intake & Output 07/03/18 07/04/18 07/04/18 18:59 06:59 18:59 Intake Total 1300 / 1300 240 / 240 Output Total 1300 / 1300 850 / 850 5000 / 5000 Balance 0 / 0 -610 / -610 -5000 / -5000 Weight 137 kg Intake: IV 100 / 100 Rocephin Inj 1,000 MG In NS Inj 100 / 100 100 ML @ 200 mls/hr IV.SIG Q24H NATALEE Rx#:[id number] Oral 1200 / 1200 240 / 240 Output: Urine 400 / 400 850 / 850 Urine/Stool Mix 900 / 900 Hemodialysis Amount 5000 / 5000 Other: Date of Last Bowel Movement 07/03/18 07/03/18 07/03/18 # Bowel Movements 2 1 Narrative: GENERAL: Morbid Obese, not in distress CARDIOVASCULAR: Regular rate and rhythm without murmurs, gallops, or rubs. RESPIRATORY: Decreased breath sounds but no wheezing or rales. GASTROINTESTINAL: Abdomen soft, non-tender, nondistended. Normal active bowel sounds MUSCULOSKELETAL: Extremities without clubbing, cyanosis, 1 + edema, continues to improve NEURO: Alert & Oriented x4 to person, place, time, situation. Moves all ext x4 Results - Labs CBC & Chem 7: 07/04/18 04:02 07/04/18 04:02 Laboratory Results - last 24 hr 07/03/18 07/03/18 07/04/18 16:47 20:38 04:02 WBC 5.9 RBC 4.46 Hgb 13.8 D Hct 41.1 MCV 92.1 MCH 30.9 MCHC 33.6 RDW 15.0 Plt Count 108 L D MPV 8.4 Hematology Comments PT INR Sodium Potassium Chloride Carbon Dioxide Anion Gap BUN Creatinine Estimated GFR POC Glucose 135 H 152 H Random Glucose Calcium Total Bilirubin Direct Bilirubin Indirect Bilirubin AST ALT Alkaline Phosphatase Total Protein Albumin 07/04/18 07/04/18 07/04/18 04:02 04:02 07:33 WBC RBC Hgb Hct MCV MCH MCHC RDW Plt Count MPV Hematology Comments PT 15.8 H INR 1.6 Sodium 143 Potassium 3.9 Chloride 105 Carbon Dioxide 27.5 Anion Gap 11 BUN 45 H Creatinine 2.45 H Estimated GFR 19 L POC Glucose 95 Random Glucose 100 Calcium 8.5 Total Bilirubin 0.5 Direct Bilirubin 0.2 Indirect Bilirubin 0.3 AST 21 ALT 53 Alkaline Phosphatase 103 Total Protein 6.7 Albumin 2.4 L - Procedures Cardiac catheterization Assessment and Plan - Assessment (1) Coronary artery disease Code(s): I25.10 - Atherosclerotic heart disease of [place] coronary artery without angina pectoris Status: Chronic (2) Ventricular fibrillation Code(s): I49.01 - Ventricular fibrillation Status: Acute (3) Ischemic cardiomyopathy Code(s): I25.5 - Ischemic cardiomyopathy Status: Chronic (4) Paroxysmal atrial fibrillation Code(s): I48.0 - Paroxysmal atrial fibrillation Status: Chronic (5) CKD (chronic kidney disease) stage 4, GFR 15-29 ml/min Code(s): N18.4 - Chronic kidney disease, stage 4 (severe) Status: Acute (6) UTI (urinary tract infection) due to Enterococcus Code(s): N39.0 - Urinary tract infection, site not specified; B95.2 - Enterococcus as the cause of diseases classified elsewhere Status: Acute (7) Gywpg-to-ozflzyd kidney injury Code(s): N17.9 - Acute kidney failure, unspecified; N18.9 - Chronic kidney disease, unspecified Status: Acute - Plan 72yF with ischemic cardiomyopathy and a last known EF of ~30-35% who presents with symptoms concerning for acute coronary syndrome and 13 episodes of ventricular fibrillation s/p 10 AICD defibrillations. continue heparin, aspirin , trending troponin. now out of shock. Acute Hypoxemia secondary to acute pulmonary edema secondary to acute systolic congestive heart failure exacerbation, resolving -Continue diuresis with lasix and HD, duonebs Acute coronary syndrome/Acute NSTEMI/Cardiogenic Shock, V. fib-resolved -Multiple episodes of Ventricular fibrillation, Ischemic cardiomyopathy EF 30 -35% now down to 15%, Status post Cardiac catheterization no new blockade found - cont Amiodarone, statin, Lasix, Aspirin. Coreg on hold, Heart rate in the 60s, cardiology following. History of paroxysmal atrial fibrillation-no significant atrial arrhythmia burden in the past few years. Resume Coumadin after permacath placement. CKD IV -patient started hemodialysis during this admission. Losartan on hold. Nephrology following, will likely need long-term dialysis. For PermCath placement today, will need dialysis as outpatient. Continue hemodialysis TTS. Urinary tract infection - secondary to E coli, MDR, on Zosyn , sensitive to ceftriaxone, no leukocytosis or fever. Continue ceftriaxone (06/29-07/05). Supratherapeutic INR- no note of bleeding, Coumadin on hold. Hold for PermCath placement. INR still at at 1.6, s/p vitamin K subcutaneously, Acute liver injury - LFTS improving, resolving, recheck LFTs tomorrow. Lactic acidosis - resolved DM II on sliding scale-blood glucose acceptable, continue Levemir 25 units. SSI. GI prophylaxis with Protonix DVT prophylaxis with Coumadin, currently on hold Full Code. Disposition: Physical therapy recommends home health care with physical therapy. Discharge once outpatient dialysis in place. (1) Coronary artery disease Qualifiers: Coronary Disease-Associated Artery/Lesion type: [place] artery [place] vs. transplanted heart: [place] heart Associated angina: with unstable angina Qualified Code(s): I25.110 - Atherosclerotic heart disease of [place] coronary artery with unstable angina pectoris
[2018-07-04] MEDS: Amiodarone 200 MG Tablet PO SCH (13:02)
[2018-07-04] MEDS: Furosemide 40 MG Tablet PO SCH (13:02)
[2018-07-04] MEDS: Allopurinol 100 MG Tablet PO SCH (13:03)
[2018-07-04] MEDS: Famotidine 20 MG Tablet PO SCH ×2 (13:03→21:20)
[2018-07-04] MEDS: Calcitriol 0.25 MCG Capsule PO SCH (13:03)
[2018-07-04] MEDS ORDERED: fentaNYL Citrate Inj 250 MCG/5 ML Ampul ONE (14:40)
[2018-07-04] MEDS ORDERED: Lidocaine 1%/Epinephrine 1:100,000 Inj 20 ML Vial ONE (15:03)
[2018-07-04] MEDS ORDERED: *Heparin 10,000 UNITS/10 ML Vial Periprocedural ONLY ONE (15:03)
--- NOTE | 2018-07-04 15:51 | P.RAD ---
Post Procedure Progress Note - Procedure Information Procedure Date: 07/04/18 Supervising Radiologist: Tahir Hook MD Estimated blood loss (mL): 5 Anesthesia: Conscious Sedation - Plan of Activity Patient to Unit: ROPU Patient Condition: Good See PACS Report for procedural detail/treatment.
--- NOTE | 2018-07-04 16:07 | IR ---
CORRECTION REPORT 07/25/2018, added device EXAM DATE: 07/04/2018 3:56 PM EDT AGE/SEX: 72 years / Female INDICATIONS: Patient with history of end stage renal disease presents with non-tunneled dialysis cat heter in need of conversion to tunneled dialysis catheter. CLINICAL DATA: This is the patient's subsequent encounter. Patient reports that signs and symptoms h ave been present for 1 week and indicates a pain score of 0/10. MEDICAL/SURGICAL HISTORY: Hypertension. Congestive heart failure. Diabetes, A-Fib, Chron ic Kidney Disease(Stage 4) . AICD (automatic cardioverter/defibrillator) COMPARISON: No prior exams available for comparison. FLUORO TIME (min): 0.77 IMAGE SERIES: 1 SEDATION TIME (min): 15 MEDICATION(S): 2 mg midazolam (Versed) IV 100 mcg fentanyl (Sublimaze) IV DEVICE(S): 15 Sinhala double lumen Joya II Plus Catheter PROCEDURE: 1. Dialysis catheter placement. 2. Conscious sedation with continuous EKG and oximetry monitoring. The risks, benefits and alternatives to the procedure were explained and verbal and written consent w as obtained. The site was prepped in sterile fashion. Full sterile technique was used, including ca p, mask, sterile gloves and gown and a large sterile sheet. Hand hygiene and 2% chlorhexidine and/or betadine/alcohol prep was utilized per protocol for cutaneous antisepsis. The skin and subcutaneous tissues were infiltrated with local anesthetic solution. With fluoroscopic guidance a dermatotomy was created using the existing venous access. A subcutaneou s tunnel was created in a retrograde fashion the catheter was pulled through the tunnel. The cathete r was flushed and assembled and locked with heparin. The catheter was sutured in place. Conscious sedation was performed with the prescribed dosages and duration as above in the presence of an independent trained radiology nurse to assist in the monitoring of the patient. EKG and oximetry remained stable throughout the procedure. The patient tolerated the procedure well and there were n o complications. The patient was sent to post anesthesia recovery in stable condition. CONCLUSION: 1. Uncomplicated Dialysis catheter placement as above. Electronically signed by: Tahir Hook MD 07/04/2018 4:05 PM EDT 1. Electronically signed by: Tahir Hook MD 07/25/2018 10:19 AM EDT
--- NOTE | 2018-07-04 20:35 | P.PNNP ---
Subjective Interval history: Patient has permacath insertion Physical Exam Vital signs: Vital Signs 07/03/18 21:00 07/03/18 22:00 07/03/18 22:15 Temperature Pulse Rate 62 62 Respiratory Rate 19 Blood Pressure Pulse Oximetry 07/03/18 23:00 07/03/18 23:56 07/04/18 00:00 Temperature 98.4 F Pulse Rate 59 L 59 L 62 Respiratory Rate 19 Blood Pressure 125/60 Pulse Oximetry 98 07/04/18 01:00 07/04/18 02:00 07/04/18 03:00 Temperature Pulse Rate 66 60 60 Respiratory Rate Blood Pressure Pulse Oximetry 07/04/18 04:00 07/04/18 05:00 07/04/18 06:00 Temperature 98.3 F Pulse Rate 59 L 59 L 59 L Respiratory Rate 18 Blood Pressure 133/63 Pulse Oximetry 96 07/04/18 07:00 07/04/18 08:00 07/04/18 12:46 Temperature 97.6 F 97.7 F Pulse Rate 59 L 59 L 60 Respiratory Rate 18 17 Blood Pressure 131/65 135/65 Pulse Oximetry 95 95 96 07/04/18 13:00 07/04/18 14:00 07/04/18 15:35 Temperature 97.8 F Pulse Rate 60 60 61 Respiratory Rate 18 Blood Pressure 142/64 H Pulse Oximetry 92 L 07/04/18 15:50 07/04/18 16:05 07/04/18 16:53 Temperature Pulse Rate 62 60 60 Respiratory Rate 18 18 16 Blood Pressure 129/64 125/63 137/64 Pulse Oximetry 93 L 93 L 97 07/04/18 17:00 07/04/18 17:35 07/04/18 18:00 Temperature Pulse Rate 60 60 60 Respiratory Rate 16 18 Blood Pressure 129/63 138/61 Pulse Oximetry 96 97 07/04/18 18:01 07/04/18 19:00 07/04/18 19:40 Temperature 97.8 F Pulse Rate 60 60 59 L Respiratory Rate 16 20 Blood Pressure 124/60 125/58 L Pulse Oximetry 94 L 98 Intake & Output 07/04/18 07/04/18 07/05/18 06:59 18:59 06:59 Intake Total 240 / 240 220 / 220 Output Total 850 / 850 5000 / 5000 Balance -610 / -610 -4780 / -4780 Weight 137 kg Intake: IV 100 / 100 Rocephin Inj 1,000 MG In NS Inj 100 / 100 100 ML @ 200 mls/hr IV.SIG Q24H NATALEE Rx#:[id number] Oral 240 / 240 120 / 120 Output: Urine 850 / 850 Hemodialysis Amount 5000 / 5000 Other: # Voids 1 Date of Last Bowel Movement 07/03/18 07/04/18 07/03/18 # Bowel Movements 1 1 - Constitutional no acute distress - Routine HEENT Exam Eye: Present: EOMI - Routine Respiratory Exam Present: decreased breath sounds - Routine Cardiovascular Exam Present: S1, S2, irregular rhythm - Routine Abdominal Exam Present: soft, normoactive bowel sounds - Routine Extremities Exam Present: edema Assessment and Plan - Assessment (1) CKD (chronic kidney disease) stage 4, GFR 15-29 ml/min Code(s): N18.4 - Chronic kidney disease, stage 4 (severe) Status: Acute (2) Coronary artery disease Code(s): I25.10 - Atherosclerotic heart disease of [place] coronary artery without angina pectoris Status: Chronic Qualifiers: Coronary Disease-Associated Artery/Lesion type: [place] artery [place] vs. transplanted heart: [place] heart Associated angina: with unstable angina Qualified Code(s): I25.110 - Atherosclerotic heart disease of [place] coronary artery with unstable angina pectoris (3) Ventricular fibrillation Code(s): I49.01 - Ventricular fibrillation Status: Acute (4) Ischemic cardiomyopathy Code(s): I25.5 - Ischemic cardiomyopathy Status: Chronic - Plan heart catheterization done 30 cc of contrast used Patient on hemodialysis TTS, tolerating HD via non-tunneled catheter now has permacath HD done today 5L UF STATUS post permacath insertion Next HD She is doing better with hemodialysis, she needs long-term dialysis placement
[2018-07-04] MEDS: Insulin Detemir Inj 1,000 UNIT/10 ML Vial SQ SCH (21:19)
[2018-07-05] MEDS: Acetaminophen 325 MG Tablet PO PRN ×2 (01:26→23:05)
[2018-07-05 05:16] LABS: Hematocrit 31.1 % (35.0-46.0); Hemoglobin 10.2 gm/dL (11.6-15.3); Mean Corpuscular HGB Conc 32.7 % (32.0-36.0); Mean Corpuscular Hemoglobin 30.7 pg (27.0-34.0); Mean Corpuscular Volume 93.9 fL (80.0-100.0); Mean Platelet Volume 8.1 fL (7.0-11.0); Platelet Count 161 th/mm3 (150-450); Red Blood Count 3.31 mil/mm3 (4.00-5.30); Red Cell Distribution Width 15.4 % (11.6-17.2); White Blood Count 9.3 th/mm3 (4.0-11.0)
[2018-07-05 05:21] LABS: INR 1.2 Ratio; Prothrombin Time 12.4 sec (9.8-11.6)
[2018-07-05 05:37] LABS: Alanine Aminotransferase 50 U/L (10-53); Albumin 2.5 g/dL (3.4-5.0); Anion Gap 8 meq/L (5-15); Aspartate Aminotransferase 27 U/L (15-37); Blood Urea Nitrogen 38 mg/dL (7-18); Calcium 8.3 mg/dL (8.5-10.1); Carbon Dioxide 32.1 meq/L (21.0-32.0); Chloride 103 meq/L (98-107); Glomerular Filtration Rate 24 mL/min (>89); Glucose,Random 107 mg/dL (74-106); Potassium 3.8 meq/L (3.5-5.1); Sodium 143 meq/L (136-145)
[2018-07-05 05:40] LABS: Alkaline Phosphatase 113 U/L (45-117); Total Protein 6.4 g/dL (6.4-8.2)
[2018-07-05] MEDS: Insulin NovoLOG Aspart Correctional Sugar Inj SQ SCH ×4 (08:34→20:54)
[2018-07-05] MEDS: Furosemide 40 MG Tablet PO SCH (08:37)
[2018-07-05] MEDS: Amiodarone 200 MG Tablet PO SCH (08:37)
[2018-07-05] MEDS: Calcitriol 0.25 MCG Capsule PO SCH (08:37)
[2018-07-05] MEDS: Allopurinol 100 MG Tablet PO SCH (08:37)
[2018-07-05] MEDS: Famotidine 20 MG Tablet PO SCH ×2 (09:25→20:42)
--- NOTE | 2018-07-05 12:25 | P.PNNP ---
Subjective Interval history: Patient is doing well Physical Exam Vital signs: Vital Signs 07/04/18 12:46 07/04/18 13:00 07/04/18 14:00 Temperature 97.7 F Pulse Rate 60 60 60 Respiratory Rate 17 Blood Pressure 135/65 Pulse Oximetry 96 07/04/18 15:35 07/04/18 15:50 07/04/18 16:05 Temperature 97.8 F Pulse Rate 61 62 60 Respiratory Rate 18 18 18 Blood Pressure 142/64 H 129/64 125/63 Pulse Oximetry 92 L 93 L 93 L 07/04/18 16:53 07/04/18 17:00 07/04/18 17:35 Temperature Pulse Rate 60 60 60 Respiratory Rate 16 16 18 Blood Pressure 137/64 129/63 138/61 Pulse Oximetry 97 96 97 07/04/18 18:00 07/04/18 18:01 07/04/18 19:00 Temperature Pulse Rate 60 60 60 Respiratory Rate 16 Blood Pressure 124/60 Pulse Oximetry 94 L 07/04/18 19:40 07/04/18 20:00 07/04/18 21:00 Temperature 97.8 F Pulse Rate 59 L 60 60 Respiratory Rate 20 Blood Pressure 125/58 L Pulse Oximetry 98 07/04/18 21:06 07/04/18 21:27 07/04/18 22:00 Temperature Pulse Rate 60 Respiratory Rate Blood Pressure Pulse Oximetry 95 98 07/04/18 23:00 07/04/18 23:12 07/05/18 00:00 Temperature 98.0 F Pulse Rate 60 60 59 L Respiratory Rate 18 Blood Pressure 128/60 Pulse Oximetry 98 07/05/18 01:00 07/05/18 02:00 07/05/18 03:00 Temperature Pulse Rate 60 60 59 L Respiratory Rate Blood Pressure Pulse Oximetry 07/05/18 03:39 07/05/18 04:00 07/05/18 04:07 Temperature 98.2 F Pulse Rate 60 64 Respiratory Rate 19 19 Blood Pressure 125/57 L Pulse Oximetry 98 07/05/18 05:00 07/05/18 06:00 07/05/18 07:00 Temperature 97.7 F Pulse Rate 59 L 60 60 Respiratory Rate 16 Blood Pressure 140/66 Pulse Oximetry 96 07/05/18 08:00 07/05/18 09:00 09/05/18 09:27 Temperature Pulse Rate 60 60 Respiratory Rate Blood Pressure Pulse Oximetry 97 07/05/18 10:00 07/05/18 11:00 Temperature 98.3 F Pulse Rate 60 60 Respiratory Rate 16 Blood Pressure 139/65 Pulse Oximetry 97 Intake & Output 07/04/18 07/05/18 07/05/18 18:59 06:59 18:59 Intake Total 220 / 220 360 / 360 100 / 100 Output Total 5000 / 5000 200 / 200 Balance -4780 / -4780 160 / 160 100 / 100 Weight 133.5 kg Intake: IV 100 / 100 100 / 100 Rocephin Inj 1,000 MG In NS Inj 100 / 100 100 / 100 100 ML @ 200 mls/hr IV.SIG Q24H NATALEE Rx#:[id number] Oral 120 / 120 360 / 360 Output: Urine 200 / 200 Hemodialysis Amount 5000 / 5000 Other: # Voids 1 Date of Last Bowel Movement 07/04/18 07/03/18 # Bowel Movements 1 - Constitutional no acute distress - Routine HEENT Exam Eye: Present: EOMI - Routine Neck Exam Present: supple - Routine Respiratory Exam Present: decreased breath sounds (At [place]) - Routine Cardiovascular Exam Present: irregular rhythm - Routine Abdominal Exam Present: soft, normoactive bowel sounds - Routine Extremities Exam Present: edema Assessment and Plan - Assessment (1) CKD (chronic kidney disease) stage 4, GFR 15-29 ml/min Code(s): N18.4 - Chronic kidney disease, stage 4 (severe) Status: Acute (2) Coronary artery disease Code(s): I25.10 - Atherosclerotic heart disease of [place] coronary artery without angina pectoris Status: Chronic Qualifiers: Coronary Disease-Associated Artery/Lesion type: [place] artery [place] vs. transplanted heart: [place] heart Associated angina: with unstable angina Qualified Code(s): I25.110 - Atherosclerotic heart disease of [place] coronary artery with unstable angina pectoris (3) Ventricular fibrillation Code(s): I49.01 - Ventricular fibrillation Status: Acute (4) Ischemic cardiomyopathy Code(s): I25.5 - Ischemic cardiomyopathy Status: Chronic - Plan heart catheterization done 30 cc of contrast used Patient on hemodialysis TTS, tolerating HD via non-tunneled catheter now has permacath HD done today 5L UF STATUS post permacath insertion doing well outpatient dialysis set up requested Next HD She is doing better with hemodialysis, she needs long-term dialysis placement
--- NOTE | 2018-07-05 14:20 | P.PNIM ---
Subjective Interval history: Follow-up for shortness of breath Shortness of breath is better, status post PermCath placement 07/04/2018. No tenderness in the site of PermCath placement. No nausea or vomiting. Eating well. Physical Exam Vital signs: Vital Signs 07/04/18 15:35 07/04/18 15:50 07/04/18 16:05 Temperature 97.8 F Pulse Rate 61 62 60 Respiratory Rate 18 18 18 Blood Pressure 142/64 H 129/64 125/63 Pulse Oximetry 92 L 93 L 93 L 07/04/18 16:53 07/04/18 17:00 07/04/18 17:35 Temperature Pulse Rate 60 60 60 Respiratory Rate 16 16 18 Blood Pressure 137/64 129/63 138/61 Pulse Oximetry 97 96 97 07/04/18 18:00 07/04/18 18:01 07/04/18 19:00 Temperature Pulse Rate 60 60 60 Respiratory Rate 16 Blood Pressure 124/60 Pulse Oximetry 94 L 07/04/18 19:40 07/04/18 20:00 07/04/18 21:00 Temperature 97.8 F Pulse Rate 59 L 60 60 Respiratory Rate 20 Blood Pressure 125/58 L Pulse Oximetry 98 07/04/18 21:06 07/04/18 21:27 07/04/18 22:00 Temperature Pulse Rate 60 Respiratory Rate Blood Pressure Pulse Oximetry 95 98 07/04/18 23:00 07/04/18 23:12 07/05/18 00:00 Temperature 98.0 F Pulse Rate 60 60 59 L Respiratory Rate 18 Blood Pressure 128/60 Pulse Oximetry 98 07/05/18 01:00 07/05/18 02:00 07/05/18 03:00 Temperature Pulse Rate 60 60 59 L Respiratory Rate Blood Pressure Pulse Oximetry 07/05/18 03:39 07/05/18 04:00 07/05/18 04:07 Temperature 98.2 F Pulse Rate 60 64 Respiratory Rate 19 19 Blood Pressure 125/57 L Pulse Oximetry 98 07/05/18 05:00 07/05/18 06:00 07/05/18 07:00 Temperature 97.7 F Pulse Rate 59 L 60 60 Respiratory Rate 16 Blood Pressure 140/66 Pulse Oximetry 96 07/05/18 08:00 07/05/18 09:00 07/05/18 09:27 Temperature Pulse Rate 60 60 Respiratory Rate Blood Pressure Pulse Oximetry 97 07/05/18 10:00 07/05/18 11:00 07/05/18 12:00 Temperature 98.3 F Pulse Rate 60 60 60 Respiratory Rate 16 Blood Pressure 139/65 Pulse Oximetry 97 07/05/18 13:00 07/05/18 14:00 Temperature Pulse Rate 60 60 Respiratory Rate Blood Pressure Pulse Oximetry Intake & Output 07/04/18 07/05/18 07/05/18 18:59 06:59 18:59 Intake Total 220 / 220 360 / 360 100 / 100 Output Total 5000 / 5000 200 / 200 Balance -4780 / -4780 160 / 160 100 / 100 Weight 133.5 kg Intake: IV 100 / 100 100 / 100 Rocephin Inj 1,000 MG In NS Inj 100 / 100 100 / 100 100 ML @ 200 mls/hr IV.SIG Q24H NATALEE Rx#:[id number] Oral 120 / 120 360 / 360 Output: Urine 200 / 200 Hemodialysis Amount 5000 / 5000 Other: # Voids 1 Date of Last Bowel Movement 07/04/18 07/03/18 # Bowel Movements 1 Narrative: GENERAL: Morbid Obese, not in distress CARDIOVASCULAR: Regular rate and rhythm without murmurs, gallops, or rubs. RESPIRATORY: Decreased breath sounds but no wheezing or rales. GASTROINTESTINAL: Abdomen soft, non-tender, nondistended. Normal active bowel sounds MUSCULOSKELETAL: Extremities without clubbing, cyanosis, 1+ edema, continues to improve NEURO: Alert & Oriented x4 to person, place, time, situation. Moves all ext x4 Results - Labs CBC & Chem 7: 07/05/18 04:49 07/05/18 04:49 Laboratory Results - last 24 hr 07/04/18 07/04/18 07/05/18 16:49 21:10 04:49 WBC 9.3 RBC 3.31 L Hgb 10.2 L D Hct 31.1 L MCV 93.9 MCH 30.7 MCHC 32.7 RDW 15.4 Plt Count 161 D MPV 8.1 PT INR Sodium Potassium Chloride Carbon Dioxide Anion Gap BUN Creatinine Estimated GFR POC Glucose 83 167 H Random Glucose Calcium Total Bilirubin AST ALT Alkaline Phosphatase Total Protein Albumin 07/05/18 07/05/18 07/05/18 04:49 04:49 07:45 WBC RBC Hgb Hct MCV MCH MCHC RDW Plt Count MPV PT 12.4 H INR 1.2 Sodium 143 Potassium 3.8 Chloride 103 Carbon Dioxide 32.1 H Anion Gap 8 BUN 38 H Creatinine 2.04 H Estimated GFR 24 L POC Glucose 84 Random Glucose 107 H Calcium 8.3 L Total Bilirubin 0.5 AST 27 ALT 50 Alkaline Phosphatase 113 Total Protein 6.4 Albumin 2.5 L 07/05/18 10:59 WBC RBC Hgb Hct MCV MCH MCHC RDW Plt Count MPV PT INR Sodium Potassium Chloride Carbon Dioxide Anion Gap BUN Creatinine Estimated GFR POC Glucose 235 H Random Glucose Calcium Total Bilirubin AST ALT Alkaline Phosphatase Total Protein Albumin - Imaging Impressions Catheter Placement 07/04/18 00:00 CONCLUSION: 1. Uncomplicated Dialysis catheter placement as above. - Procedures Cardiac catheterization Assessment and Plan - Assessment (1) Coronary artery disease Code(s): I25.10 - Atherosclerotic heart disease of [place] coronary artery without angina pectoris Status: Chronic (2) Ventricular fibrillation Code(s): I49.01 - Ventricular fibrillation Status: Acute (3) Ischemic cardiomyopathy Code(s): I25.5 - Ischemic cardiomyopathy Status: Chronic (4) Paroxysmal atrial fibrillation Code(s): I48.0 - Paroxysmal atrial fibrillation Status: Chronic (5) CKD (chronic kidney disease) stage 4, GFR 15-29 ml/min Code(s): N18.4 - Chronic kidney disease, stage 4 (severe) Status: Acute (6) UTI (urinary tract infection) due to Enterococcus Code(s): N39.0 - Urinary tract infection, site not specified; B95.2 - Enterococcus as the cause of diseases classified elsewhere Status: Acute (7) Ocytd-qk-wkkhmpo kidney injury Code(s): N17.9 - Acute kidney failure, unspecified; N18.9 - Chronic kidney disease, unspecified Status: Acute - Plan 72yF with ischemic cardiomyopathy and a last known EF of ~30-35% who presents with symptoms concerning for acute coronary syndrome and 13 episodes of ventricular fibrillation s/p 10 AICD defibrillations. Acute Hypoxemia secondary to acute pulmonary edema secondary to acute systolic congestive heart failure exacerbation, resolving -Continue diuresis with lasix and HD, duonebs Acute coronary syndrome/Acute NSTEMI/Cardiogenic Shock, V. fib-resolved -Multiple episodes of Ventricular fibrillation, Ischemic cardiomyopathy EF 30 -35% now down to 15%, Status post Cardiac catheterization no new blockade found , continue Amiodarone, statin, Lasix, Aspirin. Heart rate in the 60s, no beta -blockade. History of paroxysmal atrial fibrillation-no significant atrial arrhythmia burden in the past few years. Resume Coumadin today, PermCath placed yesterday. CKD IV -patient started hemodialysis during this admission. Losartan on hold. Nephrology following, will likely need long-term dialys Continue hemodialysis TTS. Urinary tract infection - secondary to E coli, MDR, on Zosyn , sensitive to ceftriaxone, no leukocytosis or fever. Stop ceftriaxone after today, check CBC tomorrow. Acute liver injury - LFTS improving, resolving, recheck tomorrow. Lactic acidosis - resolved DM II on sliding scale-blood glucose acceptable, continue Levemir 25 units. SSI. GI prophylaxis with Protonix DVT prophylaxis with Coumadin, currently on hold Full Code. Disposition: Physical therapy recommends home health care with physical therapy. Discharge once outpatient dialysis in place and cleared by nephrology. (1) Coronary artery disease Qualifiers: Coronary Disease-Associated Artery/Lesion type: [place] artery [place] vs. transplanted heart: [place] heart Associated angina: with unstable angina Qualified Code(s): I25.110 - Atherosclerotic heart disease of [place] coronary artery with unstable angina pectoris
[2018-07-05] MEDS: Insulin Detemir Inj 1,000 UNIT/10 ML Vial SQ SCH (20:56)
[2018-07-06 05:08] VITALS: O2SAT 96
[2018-07-06 06:22] LABS: Baso % (Auto) 0.4 % (0.0-2.0); Eos # (Auto) 0.2 th/mm3 (0.0-0.4); Eos % (Auto) 1.5 % (0.0-4.0); Hematocrit 31.1 % (35.0-46.0); Lymph # (Auto) 1.3 th/mm3 (1.0-4.8); Lymph % (Auto) 10.3 % (9.0-44.0); Mean Corpuscular HGB Conc 32.1 % (32.0-36.0); Mean Corpuscular Hemoglobin 30.3 pg (27.0-34.0); Mean Corpuscular Volume 94.3 fL (80.0-100.0); Mean Platelet Volume 7.9 fL (7.0-11.0); Mono # (Auto) 1.6 th/mm3 (0.0-0.9); Mono % (Auto) 12.3 % (0.0-8.0); Neut # (Auto) 9.8 th/mm3 (1.8-7.7); Neut % (Auto) 75.5 % (16.0-70.0); Platelet Count 162 th/mm3 (150-450); Red Cell Distribution Width 15.2 % (11.6-17.2)
[2018-07-06 06:28] LABS: INR 1.1 Ratio; Prothrombin Time 11.4 sec (9.8-11.6)
[2018-07-06 06:46] LABS: Alanine Aminotransferase 43 U/L (10-53); Albumin 2.5 g/dL (3.4-5.0); Anion Gap 7 meq/L (5-15); Aspartate Aminotransferase 18 U/L (15-37); Blood Urea Nitrogen 35 mg/dL (7-18); Carbon Dioxide 33.4 meq/L (21.0-32.0); Chloride 104 meq/L (98-107); Glomerular Filtration Rate 24 mL/min (>89); Glucose,Random 89 mg/dL (74-106); Potassium 3.7 meq/L (3.5-5.1); Sodium 144 meq/L (136-145)
[2018-07-06 06:48] LABS: Alkaline Phosphatase 110 U/L (45-117); Total Protein 6.4 g/dL (6.4-8.2)
[2018-07-06] MEDS: Insulin NovoLOG Aspart Correctional Sugar Inj SQ SCH ×3 (07:55→16:28)
[2018-07-06 09:07] VITALS: RESP 16
--- NOTE | 2018-07-06 10:40 | P.PNNP ---
Subjective Interval history: Patient is seen during hemodialysis Physical Exam Vital signs: Vital Signs 07/05/18 11:00 07/05/18 12:00 07/05/18 13:00 Temperature 98.3 F Pulse Rate 60 60 60 Respiratory Rate 16 Blood Pressure 139/65 Pulse Oximetry 97 07/05/18 14:00 07/05/18 15:00 07/05/18 16:00 Temperature 98.7 F Pulse Rate 60 60 65 Respiratory Rate 16 Blood Pressure 146/65 H Pulse Oximetry 96 07/05/18 17:00 07/05/18 18:00 07/05/18 19:00 Temperature 98.2 F Pulse Rate 60 60 60 Respiratory Rate 20 Blood Pressure 124/58 L Pulse Oximetry 97 07/05/18 20:00 07/05/18 21:00 07/05/18 22:00 Temperature Pulse Rate 60 60 60 Respiratory Rate Blood Pressure Pulse Oximetry 97 07/05/18 23:00 07/06/18 00:00 07/06/18 01:00 Temperature 97.5 F L Pulse Rate 62 60 60 Respiratory Rate 20 Blood Pressure 148/65 H Pulse Oximetry 97 07/06/18 02:00 07/06/18 03:00 07/06/18 04:00 Temperature 97.4 F L Pulse Rate 56 L 54 L 59 L Respiratory Rate 20 Blood Pressure 135/64 Pulse Oximetry 96 07/06/18 05:00 07/06/18 06:00 07/06/18 07:00 Temperature 97.9 F Pulse Rate 56 L 60 56 L Respiratory Rate 16 Blood Pressure 129/60 Pulse Oximetry 96 07/06/18 08:00 07/06/18 09:00 07/06/18 10:00 Temperature Pulse Rate 60 60 60 Respiratory Rate Blood Pressure Pulse Oximetry 96 Intake & Output 07/05/18 07/06/18 07/06/18 18:59 06:59 18:59 Intake Total 820 / 820 240 / 240 Output Total 700 / 700 300 / 300 Balance 120 / 120 -60 / -60 Weight 133.5 kg Intake: IV 100 / 100 Rocephin Inj 1,000 MG In NS Inj 100 / 100 100 ML @ 200 mls/hr IV.SIG Q24H [facility] Rx#:[id number] Oral 720 / 720 240 / 240 Output: Urine 700 / 700 300 / 300 Other: Date of Last Bowel Movement 07/05/18 07/05/18 # Bowel Movements 2 - Constitutional no acute distress - Routine Neck Exam Present: supple - Routine Respiratory Exam Present: CTA bilaterally - Routine Cardiovascular Exam Present: irregular rhythm - Routine Abdominal Exam Present: soft, normoactive bowel sounds - Routine Extremities Exam Present: edema Assessment and Plan - Assessment (1) CKD (chronic kidney disease) stage 4, GFR 15-29 ml/min Code(s): N18.4 - Chronic kidney disease, stage 4 (severe) Status: Acute (2) Coronary artery disease Code(s): I25.10 - Atherosclerotic heart disease of [place] coronary artery without angina pectoris Status: Chronic Qualifiers: Coronary Disease-Associated Artery/Lesion type: [place] artery [place] vs. transplanted heart: [place] heart Associated angina: with unstable angina Qualified Code(s): I25.110 - Atherosclerotic heart disease of [place] coronary artery with unstable angina pectoris (3) Ventricular fibrillation Code(s): I49.01 - Ventricular fibrillation Status: Acute (4) Ischemic cardiomyopathy Code(s): I25.5 - Ischemic cardiomyopathy Status: Chronic - Plan heart catheterization done 30 cc of contrast used Patient on hemodialysis TTS, tolerating HD permacath in place HD done today 5L UF seen during Next HD on Tuesday She is doing better with hemodialysis, she needs long-term dialysis placement
[2018-07-06] MEDS: Furosemide 40 MG Tablet PO SCH (12:24)
[2018-07-06] MEDS: Allopurinol 100 MG Tablet PO SCH (12:24)
[2018-07-06] MEDS: Amiodarone 200 MG Tablet PO SCH (12:24)
[2018-07-06] MEDS: Calcitriol 0.25 MCG Capsule PO SCH (12:24)
[2018-07-06] MEDS: Famotidine 20 MG Tablet PO SCH (12:25)
--- NOTE | 2018-07-06 12:55 | P.DS ---
Date of admission: 06/24/18 11:47 Primary care physician: Phillip Arevalo MD Attending physician on discharge: Mehul Mary Anticipated date of discharge: 07/06/18 Brief History from admission: This is a 72yF with history of ischemic cardiomyopathy and an EF 30-35% who presents to the ER after her ICD started shocking her. She states she has had about 3 days of substernal chest pain which is associated with nausea, shortness of breath, dyspnea on exertion. she denies vomiting, diarrhea, constipation or abdominal pain. she endorses a few chills, but denies fever, cough, runny nose, sick contacts. In the ER, the AICD fired a number of times. in the ER additionally she was febrile to 38.1C. She has a wbc 32k with 93% neutrophil predominance and 13% bands. her lactate is 5, t.bili 1.5, Cr 2.4 which is at her baseline of 2.4 from prior documented laboratory data this year. AST/ALT elevated at 43/36. Trop 1.67 and trended to 1.73. BNP 2627. Remainder of the ROS is negative and she denies any changes to her medical history up until the last 3 days. I interrogated her [employer] AICD: she had 13 episodes of VF with 10 AICD defibrillations. Upon review of these, they appear to be very short runs of VT which quickly transition to VF before successful cardioversion by AICD. I have spoken with Dr. Bland her personal intermission coordinator who is economics department chair today and he has seen her and evaluated her and recommends Nephrology consultation for pre-op optimization prior to left heart catheterization. Patient update on day of discharge: For dialysis today, shortness of breath is good, no chest pain, no fever, no overnight events. No bleeding. INR subtherapeutic. Lower extremity swelling is better. DS: Diagnosis - Discharge Diagnosis (1) Coronary artery disease Status: Chronic (2) Ventricular fibrillation Status: Acute (3) Ischemic cardiomyopathy Status: Chronic (4) Paroxysmal atrial fibrillation Status: Chronic (5) CKD (chronic kidney disease) stage 4, GFR 15-29 ml/min Status: Acute (6) UTI (urinary tract infection) due to Enterococcus Status: Acute (7) Hxjuy-qi-dhphepo kidney injury Status: Acute DS: Summary Hospital Course: This is a 72yF with ischemic cardiomyopathy and a last known EF of ~30-35% who presents with symptoms concerning for acute coronary syndrome and 13 episodes of ventricular fibrillation s/p 10 AICD defibrillations. Patient was found to have acute hypoxemic respiratory failure secondary to pulmonary edema from acute systolic congestive heart failure exacerbation. Patient was initially admitted under the developmental writing instructor service. Please see initial and H&P and progress notes from the developmental writing instructor group regarding details about the patient's stay in the ICU. The patient was initiated on hemodialysis after central line insertion. Patient was found to be in cardiogenic shock with end STEMI. Cardiology was consulted. Patient was found to have ischemic cardiomyopathy EF 30-35% now down to 15%, Status post Cardiac catheterization no new blockade found, she will continue Amiodarone, statin, Lasix, Aspirin. She was then transferred to the hospitalist service. She continued dialysis and Lasix was initiated. She was started on Coumadin. After a few days, decision to do long- term dialysis was done. PermCath was placed. Patient was also treated for urinary tract infection, urine culture grew E. coli sensitive to ceftriaxone. She was initially started on Zosyn and switch to. She finished her course of antibiotics. She will be discharge to rehab after her dialysis schedule was established. - Time Spent with Patient Total time spent providing and/or coordinating discharge services: Greater than 30 minutes - Quality: VTE Deep Vein Thrombosis/Pulmonary Embolism Present on Admission: No Exam Vital signs: Vital Signs 07/05/18 13:00 07/05/18 14:00 07/05/18 15:00 Temperature 98.7 F Pulse Rate 60 60 60 Respiratory Rate 16 Blood Pressure 146/65 H Pulse Oximetry 96 07/05/18 16:00 07/05/18 17:00 07/05/18 18:00 Temperature Pulse Rate 65 60 60 Respiratory Rate Blood Pressure Pulse Oximetry 07/05/18 19:00 07/05/18 20:00 07/05/18 21:00 Temperature 98.2 F Pulse Rate 60 60 60 Respiratory Rate 20 Blood Pressure 124/58 L Pulse Oximetry 97 97 07/05/18 22:00 07/05/18 23:00 07/06/18 00:00 Temperature 97.5 F L Pulse Rate 60 62 60 Respiratory Rate 20 Blood Pressure 148/65 H Pulse Oximetry 97 07/06/18 01:00 07/06/18 02:00 07/06/18 03:00 Temperature 97.4 F L Pulse Rate 60 56 L 54 L Respiratory Rate 20 Blood Pressure 135/64 Pulse Oximetry 96 07/06/18 04:00 07/06/18 05:00 07/06/18 06:00 Temperature Pulse Rate 59 L 56 L 60 Respiratory Rate Blood Pressure Pulse Oximetry 07/06/18 07:00 07/06/18 08:00 07/06/18 09:00 Temperature 97.9 F Pulse Rate 56 L 60 60 Respiratory Rate 16 Blood Pressure 129/60 Pulse Oximetry 96 96 07/06/18 10:00 07/06/18 11:00 Temperature Pulse Rate 60 60 Respiratory Rate Blood Pressure Pulse Oximetry Intake & Output 07/05/18 07/06/18 07/06/18 18:59 06:59 18:59 Intake Total 820 / 820 240 / 240 Output Total 700 / 700 300 / 300 Balance 120 / 120 -60 / -60 Weight 133.5 kg Intake: IV 100 / 100 Rocephin Inj 1,000 MG In NS Inj 100 / 100 100 ML @ 200 mls/hr IV.SIG Q24H [facility] Rx#:[id number] Oral 720 / 720 240 / 240 Output: Urine 700 / 700 300 / 300 Other: Date of Last Bowel Movement 07/05/18 07/05/18 # Bowel Movements 2 Narrative: GENERAL: Morbid Obese, not in distress CARDIOVASCULAR: Regular rate and rhythm without murmurs, gallops, or rubs. RESPIRATORY: Decreased breath sounds but no wheezing or rales. GASTROINTESTINAL: Abdomen soft, non-tender, nondistended. Normal active bowel sounds MUSCULOSKELETAL: Extremities without clubbing, cyanosis, 1+ edema, continues to improve NEURO: Alert & Oriented x4 to person, place, time, situation. Moves all ext x4 - Plan Results Procedures completed during hospitalization: Cardiac catheterization Labs on day of discharge: Labs from last 24 hours 07/06/18 07/06/18 07/06/18 11:42 07:20 05:59 WBC RBC Hgb Hct MCV MCH MCHC RDW Plt Count MPV Prelim Diff (Auto) Neut % (Auto) Lymph % (Auto) [place] % (Auto) Eos % (Auto) Baso % (Auto) Neut # (Auto) Lymph # (Auto) [place] # (Auto) Eos # (Auto) Baso # (Auto) WBC Differential Diff Scan Differential Comment PT 11.4 INR 1.1 Sodium Potassium Chloride Carbon Dioxide Anion Gap BUN Creatinine Estimated GFR POC Glucose 83 90 Random Glucose Calcium Total Bilirubin AST ALT Alkaline Phosphatase Total Protein Albumin 07/06/18 07/06/18 07/05/18 05:59 05:59 20:40 WBC 13.0 H RBC 3.30 L Hgb 10.0 L Hct 31.1 L MCV 94.3 MCH 30.3 MCHC 32.1 RDW 15.2 Plt Count 162 MPV 7.9 Prelim Diff (Auto) Slide review pending Neut % (Auto) 75.5 H Lymph % (Auto) 10.3 [place] % (Auto) 12.3 H Eos % (Auto) 1.5 Baso % (Auto) 0.4 Neut # (Auto) 9.8 H Lymph # (Auto) 1.3 [place] # (Auto) 1.6 H Eos # (Auto) 0.2 Baso # (Auto) 0.0 WBC Differential . Diff Scan Auto diff confirmed Differential Comment . PT INR Sodium 144 Potassium 3.7 Chloride 104 Carbon Dioxide 33.4 H Anion Gap 7 BUN 35 H Creatinine 2.05 H Estimated GFR 24 L POC Glucose 182 H Random Glucose 89 Calcium 9.0 Total Bilirubin 0.5 AST 18 ALT 43 Alkaline Phosphatase 110 Total Protein 6.4 Albumin 2.5 L 07/05/18 15:16 WBC RBC Hgb Hct MCV MCH MCHC RDW Plt Count MPV Prelim Diff (Auto) Neut % (Auto) Lymph % (Auto) [place] % (Auto) Eos % (Auto) Baso % (Auto) Neut # (Auto) Lymph # (Auto) [place] # (Auto) Eos # (Auto) Baso # (Auto) WBC Differential Diff Scan Differential Comment PT INR Sodium Potassium Chloride Carbon Dioxide Anion Gap BUN Creatinine Estimated GFR POC Glucose 140 H Random Glucose Calcium Total Bilirubin AST ALT Alkaline Phosphatase Total Protein Albumin - Impressions ITS Impressions Chest X-Ray 06/24/18 10:29 CONCLUSION: Cardiomegaly with increase in pulmonary vascularity and perihilar congestion Head CT 06/24/18 10:31 CONCLUSION: 1. No acute intracranial abnormality . Pulmonary Perfusion Imaging 06/24/18 11:04 CONCLUSION: No significant ventilation/perfusion mismatches identified. Examination is low probability for PE. Venous Doppler Study 06/24/18 11:04 CONCLUSION: No venous thrombosis is identified within either lower extremity. Chest CT 06/24/18 11:07 CONCLUSION: 1. Minimal bibasilar atelectasis. 2. Cardiomegaly minimal coronary artery calcifications. Catheter Placement 07/04/18 00:00 CONCLUSION: 1. Uncomplicated Dialysis catheter placement as above. Discharge Plan - Discharge Disposition Patient Disposition: 03 Discharge to SNF - Discharge Condition Condition: Good - Discharge Order Discharge Orders: Discharge Order (Routine); Ordered 07/06/18 Ordered By: Mehul Hernandez - Discharge Details Anticipated Discharge Date: 07/06/18 Discharge Comment: d/c once placement is ready (SNF and HD chair) - Physicians Team Primary Care Provider: Phillip Arevalo Attending Provider: Mehul Hernandez Other Providers: Jalen Joya MD ; Mike Lockwood MD ; [facility]
[2018-07-06 15:17] VITALS: PULSE 60
[2018-07-06 15:18] VITALS: BP 129/61; TEMP 98
== END 2018-07-06 17:12 ==
LOC: PHED 10:04 → PHEDA 11:47 → HCVI 16:00 → HCPC 06-25 17:00
PROVIDERS: ADMIT Hospitalist; ATTEND Hospitalist